=== PATIENT | female | born 1965 | race Caucasian/White ===

== ENCOUNTER 2016-07-24 09:47 | Day surgery (SDC) | payer OTHER ==
[~2016-07-24 09:47] MED LIST: CLON1 PO; LEVO112T2 PO; OMEP20TA39 PO
--- NOTE | 2016-07-24 13:46 | RADRPT ---
EXAM DATE/TIME: 07/24/2016 10:04 [facility] COMPARISON: US ABDOMEN - LOWER LIMITED, November 02, 2014, 13:33. [facility], PET/CT - TUMOR METABOLISM, May 07, 2016 INDICATIONS : Abdominal distention, ascites. MEDICAL HISTORY : Hypothyroidism. Gastroparesis. Acute gastritis. Ovarian cancer. Chemotherapy. SURGICAL HISTORY : Cholecystectomy. Hysterectomy. Tubal ligation. Endometrial ablation. ENCOUNTER: Subsequent ACUITY: 1 day PAIN SCORE: 0/10 LOCATION: Abdomen. AREA EVALUATED: Abdomen. FINDINGS: Imaging of the abdomen and pelvis was performed to evaluate for ascites for possible paracentesis. O nly a trace amount of fluid was present and paracentesis is not be performed. CONCLUSION: 1. Inadequate fluid for paracentesis. Bentley King MD on July 24, 2016 at 13:44 Board Certified Radiologist. This report was verified electronically.
== END 2016-07-24 10:20 | disposition home or self-care (01) ==
LOC: HRIP 09:47 → HRAD 09:47
PROVIDERS: ATTEND Obstetrics & Gynecology Gynecologic Oncology
DX: R14.0 Abdominal distension (gaseous) (principal); K31.84 Gastroparesis; E03.9 Hypothyroidism, unspecified; Z85.43 Personal history of malignant neoplasm of ovary; Z90.49 Acquired absence of other specified parts of digestive tract
CPT/HCPCS: 76705

== ENCOUNTER 2016-08-05 12:37 | Day surgery (SDC) | payer OTHER ==
[2016-08-05 14:05] VITALS: BP 118/81; PULSE 70; RESP 20; TEMP 98.3; O2SAT 100
--- NOTE | 2016-08-05 17:10 | RADRPT ---
EXAM DATE/TIME: 08/05/2016 12:59 [facility] COMPARISON: EXTERNAL COMPARISON: US GUIDED ABD PARACENTESIS, July 06, 2014, 9:26. [facility], PET/CT - TUMOR METABOLISM, Jul 29 2016. PET/CT - TUMOR METABOLISM May 07, 2016. PET/CT - TUMOR METABOLISM, 2015. PE T/CT - TUMOR METABOLISM, December 07, 2015. INDICATIONS : Ascites. MEDICAL HISTORY : Hypothyroidism. Metastatic ovarian cancer. SURGICAL HISTORY : Hysterectomy. Cholecystectomy. Tubal ligation. ENCOUNTER: Subsequent ACUITY: 2 weeks PAIN SCORE: 2/10 LOCATION: Right lower quadrant FLUID: Total volume of 2,600 cc of clear, yellow fluid was removed. Fluid was discarded. Paracentesis was therapeutic only. Post procedure scanning reveals no hematoma or other complication. TECHNIQUE: 1. Ultrasound guidance for abdominal paracentesis. 2. Paracentesis. The risks, benefits, and alternatives to ultrasound guided paracentesis were explained to the patient in detail including the risk of bleeding and infection. Written and verbal informed consent was obt ained. With the patient on the ultrasound table, ultrasound imaging was used to select the most appropriate approach for paracentesis. Overlying skin was prepped and draped in the usual sterile fashion and wi th a local anesthetic, a dermatotomy was made with an 11 blade scalpel. A 6 Spanish Nla-E-knhxsasj ca theter was introduced into the peritoneal cavity and fluid was collected. The patient tolerated the procedure well and left the ultrasound suite in stable condition. CONCLUSION: Uncomplicated ultrasound guided paracentesis. Andres Hoover MD on August 05, 2016 at 17:09 Board Certified Radiologist. This report was verified electronically.
== END 2016-08-05 14:10 | disposition home or self-care (01) ==
LOC: HROP 12:37 → HRIP 12:38 → HROP 14:10
PROVIDERS: ATTEND Obstetrics & Gynecology Gynecologic Oncology
DX: R18.8 Other ascites (principal); E03.9 Hypothyroidism, unspecified; C56.9 Malignant neoplasm of unspecified ovary
CPT/HCPCS: 49083; C1729

== ENCOUNTER 2016-08-20 12:29 | Day surgery (SDC) | payer OTHER ==
[2016-08-20 13:55] VITALS: BP 120/77; PULSE 85; RESP 16; TEMP 98.9; O2SAT 97
[2016-08-20 14:10] VITALS: BP 115/77; PULSE 86; RESP 18; O2SAT 98
--- NOTE | 2016-08-20 16:15 | RADRPT ---
EXAM DATE/TIME: 08/20/2016 12:53 [facility] COMPARISON: US GUIDED ABD PARACENTESIS, August 05, 2016, 12:59. INDICATIONS : Ascites. MEDICAL HISTORY : Hypothyroidism. Metastatic ovarian cancer. SURGICAL HISTORY : Hysterectomy. Cholecystectomy. Tubal ligation. ENCOUNTER: Subsequent ACUITY: 2 weeks PAIN SCORE: 1/10 LOCATION: Right lower quadrant FLUID: Total volume of 2,000 cc of cloudy, red fluid was removed. Fluid was discarded. Paracentesis was therapeutic only. Post procedure scanning reveals no hematoma or other complication. TECHNIQUE: 1. Ultrasound guidance for abdominal paracentesis. 2. Paracentesis. The risks, benefits, and alternatives to ultrasound guided paracentesis were explained to the patient in detail including the risk of bleeding and infection. Written and verbal informed consent was obt ained. With the patient on the ultrasound table, ultrasound imaging was used to select the most appropriate approach for paracentesis. Overlying skin was prepped and draped in the usual sterile fashion and wi th a local anesthetic, a dermatotomy was made with an 11 blade scalpel. A 6 Bengali Mks-O-vuffswvy ca theter was introduced into the peritoneal cavity and fluid was collected. The patient tolerated the procedure well and left the ultrasound suite in stable condition. CONCLUSION: Uncomplicated ultrasound guided paracentesis. Andres Hoover MD on August 20, 2016 at 16:13 Board Certified Radiologist. This report was verified electronically.
== END 2016-08-20 14:15 | disposition home or self-care (01) ==
LOC: HRAD 12:29 → HRIP 12:40 → HRAD 14:15
PROVIDERS: ATTEND Obstetrics & Gynecology Gynecologic Oncology
DX: R18.8 Other ascites (principal); E03.9 Hypothyroidism, unspecified
CPT/HCPCS: 49083; C1729

== ENCOUNTER 2016-09-05 09:48 | Day surgery (SDC) | payer OTHER ==
--- NOTE | 2016-09-05 13:07 | RADRPT ---
EXAM DATE/TIME: 09/05/2016 10:47 [facility] COMPARISON: No previous studies available for comparison. INDICATIONS : Abdominal discomfort. MEDICAL HISTORY : Ascites. Hypothyroidism. Metastatic ovarian cancer. SURGICAL HISTORY : Paracentesis.Hysterectomy. Cholecystectomy. Tubal ligation. ENCOUNTER: Subsequent ACUITY: 3 weeks PAIN SCORE: 0/10 LOCATION: Bilateral lower quadrant AREA EVALUATED: Abdomen. FINDINGS: Imaging of the abdomen and pelvis was performed to evaluate for ascites for possible paracentesis. No fluid in the 4 quadrants. CONCLUSION: No abdominal ascites. Mahamed Antunez MD on September 05, 2016 at 13:03 Board Certified Radiologist. This report was verified electronically.
== END 2016-09-05 11:00 | disposition home or self-care (01) ==
LOC: HRAD 09:48 → HRIP 09:49 → HRAD 11:00
PROVIDERS: ATTEND Obstetrics & Gynecology Gynecologic Oncology
DX: R18.8 Other ascites (principal); E03.9 Hypothyroidism, unspecified; Z85.43 Personal history of malignant neoplasm of ovary; Z90.49 Acquired absence of other specified parts of digestive tract
CPT/HCPCS: 76705

== ENCOUNTER 2017-02-06 07:55 | Day surgery (SDC) | payer OTHER ==
[~2017-02-06 07:55] MED LIST changes: +CITA10TA4 PO; +CLON1TAB PO; +DICY10CA12 PO; -LEVO112T2 PO; +LEVO75TA3 PO; +OMEP20TA PO; -OMEP20TA39 PO; +PANT40TA3 PO; +PERC5TAB12 PO
--- NOTE | 2017-02-06 09:35 | RADRPT ---
EXAM DATE/TIME: 02/06/2017 08:27 [facility] COMPARISON: US ABDOMEN - LOWER LIMITED, September 05, 2016, 10:47. INDICATIONS : Ascites. MEDICAL HISTORY : Hypothyroidism. Mentastic ovarian cancer. SURGICAL HISTORY : Hysterectomy. Cholecystectomy. Tubal ligation. ENCOUNTER: Subsequent ACUITY: 1 week PAIN SCORE: 3/10 LOCATION: Abdomen. AREA EVALUATED: Abdomen. FINDINGS: Imaging of the abdomen and pelvis was performed to evaluate for ascites for possible paracentesis. No ascites observed. Visceral evaluation of the abdomen was not performed at this time. CONCLUSION: No ascites observed. Austin Mcallister Jr., MD on February 06, 2017 at 9:33 Board Certified Radiologist. This report was verified electronically.
== END 2017-02-06 08:49 | disposition home or self-care (01) ==
LOC: HRIP 07:55 → HRAD 07:55
PROVIDERS: ATTEND Obstetrics & Gynecology Gynecologic Oncology
DX: R18.8 Other ascites (principal)
CPT/HCPCS: 76705

== ENCOUNTER 2017-02-14 12:41 | Day surgery (SDC) | payer OTHER ==
--- NOTE | 2017-02-14 13:31 | RADRPT ---
EXAM DATE/TIME: 02/14/2017 13:03 [facility] COMPARISON: US ABDOMEN - LOWER LIMITED, February 06, 2017, 8:27. INDICATIONS : Ascites. MEDICAL HISTORY : Hypothyroidism. Ovarian cancer with METS. SURGICAL HISTORY : Hysterectomy. Cholecystectomy. Tubal ligation. ENCOUNTER: Subsequent ACUITY: 4-6 months PAIN SCORE: 3/10 LOCATION: Abdomen. AREA EVALUATED: Quadrants. FINDINGS: Imaging of the abdomen and pelvis was performed to evaluate for ascites for possible paracentesis. T here is a minimal amount of fluid in all 4 quadrants. However, there is a large enough pocket for saf e therapeutic paracentesis. CONCLUSION: Very small volume of free fluid in the abdomen and pelvis. There is not enough fluid for safe therape utic paracentesis. Findings were discussed with the patient. Andres Hoover MD on February 14, 2017 at 13:29 Board Certified Radiologist. This report was verified electronically.
== END 2017-02-14 16:21 | disposition home or self-care (01) ==
LOC: HRIP 12:41 → HRAD 12:41
PROVIDERS: ATTEND Obstetrics & Gynecology Gynecologic Oncology
DX: R18.8 Other ascites (principal)
CPT/HCPCS: 76705

== ENCOUNTER 2017-02-20 12:48 | Day surgery (SDC) | payer OTHER ==
[2017-02-20 13:29] VITALS: BP 141/89; PULSE 109; RESP 16; TEMP 97.3; O2SAT 100
[2017-02-20 14:20] VITALS: BP 134/87; PULSE 90; RESP 18; TEMP 99.2; O2SAT 99
[2017-02-20] MEDS ORDERED: LIDOCAINE HCL 1% 20 ML VIAL ONE (14:21)
[2017-02-20 14:35] VITALS: BP 139/95; PULSE 91; RESP 16; O2SAT 98
--- NOTE | 2017-02-20 15:13 | RADRPT ---
EXAM DATE/TIME: 02/20/2017 13:09 [facility] COMPARISON: US GUIDED ABD PARACENTESIS, August 20, 2016, 12:53. INDICATIONS : Ascites. MEDICAL HISTORY : Hypothyroidism. Irritable bowel syndrome. Gastroparesis. Ovarian cancer. SURGICAL HISTORY : Cholecystectomy Tubal ligation. Hysterectomy. Chemotherapy. ENCOUNTER: Subsequent ACUITY: 1 week PAIN SCORE: 0/10 LOCATION: Right lower quadrant FLUID: Total volume of 2700 cc of fluid was removed. Fluid was discarded. Paracentesis was therapeutic only. Post procedure scanning reveals no hematoma or other complication. TECHNIQUE: 1. Ultrasound guidance for abdominal paracentesis. 2. Paracentesis. The risks, benefits, and alternatives to ultrasound guided paracentesis were explained to the patient in detail including the risk of bleeding and infection. Written and verbal informed consent was obt ained. With the patient on the ultrasound table, ultrasound imaging was used to select the most appropriate approach for paracentesis. Overlying skin was prepped and draped in the usual sterile fashion and wi th a local anesthetic, a dermatotomy was made with an 11 blade scalpel. A 6 Luxembourgish Qan-I-hhkwwprt ca theter was introduced into the peritoneal cavity and fluid was collected. The patient tolerated the procedure well and left the ultrasound suite in stable condition. CONCLUSION: Uncomplicated ultrasound guided paracentesis. Austin Mcallister Jr., MD on February 20, 2017 at 15:11 Board Certified Radiologist. This report was verified electronically.
== END 2017-02-20 14:48 | disposition home or self-care (01) ==
LOC: HRAD 12:48 → HRIP 12:51 → HRAD 14:48
PROVIDERS: ATTEND Obstetrics & Gynecology Gynecologic Oncology
DX: R18.8 Other ascites (principal); E03.9 Hypothyroidism, unspecified; K58.9 Irritable bowel syndrome, unspecified; Z85.43 Personal history of malignant neoplasm of ovary
CPT/HCPCS: 49083; C1729

== ENCOUNTER 2017-03-06 09:57 | Day surgery (SDC) | payer OTHER ==
[~2017-03-06 09:57] MED LIST changes: -OMEP20TA PO; +OMEP20TA93 PO
[2017-03-06 11:45] VITALS: BP 117/75; PULSE 90; RESP 17; TEMP 98.1; O2SAT 99
[2017-03-06 12:00] VITALS: BP 122/67; PULSE 92; RESP 18; O2SAT 96
--- NOTE | 2017-03-06 12:00 | PD.RAD ---
Post US Procedure Prog Note Pre Procedure Diagnosis: (1) Ascites Post Procedure Diagnosis: (1) Ascites Procedure Date: Mar 06, 2017 Supervising Radiologist: Andres Hoover Estimated blood loss: none Anesthesia: Local Plan of Activity Patient to Unit: ROPU Patient Condition: Good See PACS Report for procedural detail/treatment Drainage Procedure Procedure 1 Imaging Guidance: Ultrasound Side: Right Procedure Type: Paracentesis Drainage: Suction Fluid Removal (CCs): 13295 Fluid Description: Clear, Red Plan to ROPU then discharge. Andres Hoover MD Mar 06, 2017 12:00
--- NOTE | 2017-03-06 12:01 | RADRPT ---
EXAM DATE/TIME: 03/06/2017 10:25 [facility] COMPARISON: US GUIDED ABD PARACENTESIS, February 20, 2017, 13:09. INDICATIONS : Ascites. MEDICAL HISTORY : Hypothyroidism. Inflammatory bowel disease. Gastroparesis. Ovarian cancer. SURGICAL HISTORY : Cholecystectomy Tubal ligation. Hysterectomy. Chemotherapy. ENCOUNTER: Subsequent ACUITY: 3 days PAIN SCORE: 3/10 LOCATION: Right lower quadrant FLUID: Total volume of 2900 cc of clear, red fluid was removed. Fluid was discarded. Paracentesis was therapeutic only. Post procedure scanning reveals no hematoma or other complication. TECHNIQUE: 1. Ultrasound guidance for abdominal paracentesis. 2. Paracentesis. The risks, benefits, and alternatives to ultrasound guided paracentesis were explained to the patient in detail including the risk of bleeding and infection. Written and verbal informed consent was obt ained. With the patient on the ultrasound table, ultrasound imaging was used to select the most appropriate approach for paracentesis. Overlying skin was prepped and draped in the usual sterile fashion and wi th a local anesthetic, a dermatotomy was made with an 11 blade scalpel. A 6 Italian Ome-N-oxjbmnql ca theter was introduced into the peritoneal cavity and fluid was collected. The patient tolerated the procedure well and left the ultrasound suite in stable condition. CONCLUSION: Uncomplicated ultrasound guided paracentesis. Andres Hoover MD on March 06, 2017 at 11:58 Board Certified Radiologist. This report was verified electronically.
== END 2017-03-06 12:28 | disposition home or self-care (01) ==
LOC: HRAD 09:57 → HRIP 09:59 → HRAD 12:28
PROVIDERS: ATTEND Obstetrics & Gynecology Gynecologic Oncology
DX: R18.8 Other ascites (principal); K31.84 Gastroparesis; Z85.43 Personal history of malignant neoplasm of ovary
CPT/HCPCS: 49083; C1729

== ENCOUNTER 2017-03-12 08:07 | Emergency (ER) | payer OTHER ==
[~2017-03-12] VITALS: Ht 167.6 cm; Wt 78.0 kg
[2017-03-12 08:20] VITALS: BP 127/81; PULSE 125; RESP 15; O2SAT 99
[2017-03-12] MEDS ORDERED: AMLO5TAB2 PO (08:32)
[2017-03-12 08:33] VITALS: BP 142/96; PULSE 117; RESP 18; O2SAT 98
[2017-03-12] MEDS ORDERED: SODIUM CHLORIDE 0.9% FLUSH 10 ML FLUSH IV FLUSH PRN (09:30)
[2017-03-12] MEDS ORDERED: ONDANSETRON HCL 4 MG/2 ML VIAL IVP ONE (09:30)
[2017-03-12] MEDS ORDERED: MORPHINE SULFATE 4 MG/ML INJ IV PUSH ONE (09:30)
[2017-03-12] MEDS ORDERED: SODIUM CHLORID 0.9% 500 ML INJ 500 ML IV ONE (09:30)
[2017-03-12 10:06] LABS: AUTOMATED NEUTROPHIL # 8.8 TH/MM3 (1.8-7.7); BASOPHIL # 0.1 TH/MM3 (0-0.2); BASOPHIL % 0.5 % (0.0-2.0); EOSINOPHIL % 0.3 % (0.0-4.0); HEMO FLAGS DIFF FINAL; LYMPH % 7.1 % (9.0-44.0); LYMPHOCYTE # 0.7 TH/MM3 (1.0-4.8); MEAN CELL VOLUME 92.7 FL (80.0-100.0); MEAN CORPUSCULAR HEMOGLOBIN 30.3 PG (27.0-34.0); MEAN CORPUSCULAR HGB CONC 32.7 % (32.0-36.0); MONO % 7.4 % (0.0-8.0); NEUT % 84.7 % (16.0-70.0); PLATELET COUNT 246 TH/MM3 (150-450); RED BLOOD COUNT 4.21 MIL/MM3 (4.00-5.30); RED CELL DISTRIBUTION WIDTH 18.7 % (11.6-17.2); WHITE BLOOD COUNT 10.4 TH/MM3 (4.0-11.0)
[2017-03-12 10:14] LABS: APTT (PATIENT) 24.6 SEC (24.3-30.1); PROTHROMBIN TIME - PATIENT 11.4 SEC (9.8-11.6)
[2017-03-12 10:15] VITALS: RESP 18; O2SAT 98
[2017-03-12 10:28] LABS: ANION GAP 14 MEQ/L (5-15); AST (GOT) 44 U/L (15-37); BICARBONATE 20.7 MEQ/L (21.0-32.0); BLOOD UREA NITROGEN 10 MG/DL (7-18); CHLORIDE 101 MEQ/L (98-107); GLOMERULAR FILTRATION RATE 44 ML/MIN (>89); POTASSIUM 3.4 MEQ/L (3.5-5.1); SODIUM (NA) 136 MEQ/L (136-145)
[2017-03-12 10:34] LABS: ALKALINE PHOSPHATASE 184 U/L (45-117); ALT (GPT) 32 U/L (10-53); TOTAL BILIRUBIN ADULT 0.7 MG/DL (0.2-1.0)
[2017-03-12] MEDS ORDERED: IOHEXOL 350 MG/ML 10 ML VIAL (for RAD DIAG) IVCONTRAST ONE (11:00)
--- NOTE | 2017-03-12 11:48 | RADRPT ---
EXAM DATE/TIME: 03/12/2017 10:56 [facility] COMPARISON: CT ABDOMEN & PELVIS W CONTRAST, June 04, 2014, 16:03. INDICATIONS : Lower abdominal pain. Nausea and vomiting for one day. IV CONTRAST: 98 cc Omnipaque 350 (iohexol) IV ORAL CONTRAST: No oral contrast ingested. RADIATION DOSE: 9.25 CTDIvol (mGy) MEDICAL HISTORY : Hypertension. Ovarian cancer. SURGICAL HISTORY : Cholecystectomy. Hysterectomy. ENCOUNTER: Initial ACUITY: 1 day PAIN SCALE: 5/10 LOCATION: lower quadrant TECHNIQUE: Volumetric scanning of the abdomen and pelvis was performed. Using automated exposure control and ad justment of the mA and/or kV according to patient size, radiation dose was kept as low as reasonably achievable to obtain optimal diagnostic quality images. DICOM format image data is available electro nically for review and comparison. FINDINGS: LOWER LUNGS: Minimal linear opacity left lung nonspecific. Right lung is clear. LIVER: Liver is small moderate ascites throughout the abdomen. Stable appearing hemangioma right lower lobe . SPLEEN: There is now 84.3 cm cystic mass in the hilum of the spleen. The loculated fluid collection that is sitting just above the spleen as well. The large 8 cm likely fluid collection is seen adjacent to th e spleen. PANCREAS: Within normal limits. KIDNEYS: Normal in size and shape. There is no mass, stone or hydronephrosis. ADRENAL GLANDS: Within normal limits. VASCULAR: There is no aortic aneurysm. BOWEL/MESENTERY: Loculated mesenteric fluid collections are present scattered in the abdomen. This suggests either co mplex or malignant ascites. ABDOMINAL WALL: Intact. There are no peritoneal implants. RETROPERITONEUM: There is no lymphadenopathy. BLADDER: No wall thickening or mass. REPRODUCTIVE: Within normal limits. Fluid is seen in the pelvis. INGUINAL: There is no lymphadenopathy or hernia. MUSCULOSKELETAL: Within normal limits for patient age. CONCLUSION: Complex loculated ascites but would be consistent with malignant ascites The large loculated fluid collection in the left upper quadrant may well be causing the nausea. Ethan Dubose MD FACR on March 12, 2017 at 11:05 Board Certified Radiologist. This report was verified electronically.
--- NOTE | 2017-03-12 12:48 | PD ---
HPI Chief Complaint: Abdominal Pain Time Seen by Provider: 09:04 Travel History International Travel<30 days: No Contact w/Intl Traveler<30days: No Traveled to known affect area: No History of Present Illness HPI Patient is a 51-year-old female with history of ovarian cancer spread to the mesentery, who comes in complaining of nausea and vomiting. She says she takes an oral chemotherapy medication every night, but since last night she has had nausea and vomiting. She says she is concerned that she is dehydrated. She said she had a paracentesis done last week, and feels like the fluid is building up again. She has some pain to the top of her abdomen, which she feels is from the fluid buildup. She did take some Zofran just prior to coming in and says that is helped a little bit. She takes Percocet at home for pain. She says she has paracentesis scheduled for tomorrow. PFSH Past Medical History Asthma: No Blood Disorders: No Anxiety: Yes Depression: No Heart Rhythm Problems: No Cancer: Yes (ovarian) Cardiovascular Problems: No High Cholesterol: No Chemotherapy: Yes (daily pill) Chest Pain: No Congestive Heart Failure: No COPD: No Diabetes: No Diminished Hearing: No Endocrine: Yes Gastrointestinal Disorders: Yes (gastroparesis, ACUTE GASTRITIS) Genitourinary: No Hepatitis: No Hiatal Hernia: No Hypertension: Yes Immune Disorder: No Implanted Vascular Access Dvce: Yes Musculoskeletal: No Neurologic: No Psychiatric: Yes (ANXIETY) Reproductive: Yes (tumors on both ovaries) Respiratory: No Radiation Therapy: No Sleep Apnea: No Thyroid Disease: Yes (HYPOTHYROID) ?: Not Tubal Ligation: Yes Past Surgical History Abdominal Surgery: Yes (hemorroid banding ) AICD: No Body Medical Devices: INFUSAPORT LEFT CHEST Cardiac Surgery: No Cholecystectomy: Yes Ear Surgery: No Endocrine Surgery: No Eye Surgery: No Genitourinary Surgery: No Gynecologic Surgery: Yes (tubaligation endometrial ablation) Hysterectomy: Yes Joint Replacement: No Oral Surgery: No Pacemaker: No Thoracic Surgery: No Other Surgery: Yes (hernia) Social History Alcohol Use: No Tobacco Use: No Substance Use: No Allergies-Medications (Allergen,Severity, Reaction): Coded Allergies: carboplatin (Verified Allergy, Severe, Throat swelling , 03/12/17) sulfamethoxazole (Verified Allergy, Intermediate, SWELLING, 03/12/17) trimethoprim (Verified Allergy, Intermediate, SWELLING, 03/12/17) Reported Meds & Prescriptions Reported Meds & Active Scripts Active Reported Amlodipine (Amlodipine Besylate) 5 Mg Tab 5 Mg PO BID Pantoprazole (Pantoprazole Sodium) 40 Mg Tab 40 Mg PO DAILY Percocet (Oxycodone-Acetaminophen) 5-325 mg Tab 1 Tab PO DIRECTED PRN Clonazepam 1 Mg Tab 1 Mg PO HS Citalopram (Citalopram Hydrobromide) 10 Mg Tab 5 Mg PO DAILY Dicyclomine (Dicyclomine HCl) 10 Mg Cap 10 Mg PO DAILY Omeprazole 20 Mg Tab 20 Mg PO DAILY Levothyroxine (Levothyroxine Sodium) 75 Mcg Tab 75 Mcg PO DAILY Klonopin (Clonazepam) 1 Mg Tab 1 Mg PO DAILY Review of Systems Except as stated in HPI: all other systems reviewed are Neg General / Constitutional: No: Fever, Chills HENT: No: Headaches, Lightheadedness Cardiovascular: No: Chest Pain or Discomfort Respiratory: No: Shortness of Breath Gastrointestinal: Positive: Nausea, Vomiting, Abdominal Pain Genitourinary: No: Dysuria Musculoskeletal: No: Myalgias Skin: No Rash, No Change in Pigmentation Neurologic: No: Weakness, Dizziness Physical Exam Narrative GENERAL: Awake and alert, in no acute distress. SKIN: Focused skin assessment warm/dry. HEAD: Atraumatic. Normocephalic. EYES: Pupils equal and round. No scleral icterus. ENT: Mucous membranes pink and moist. NECK: Trachea midline. No JVD. CARDIOVASCULAR: Regular rate and rhythm. No murmur appreciated. RESPIRATORY: No accessory muscle use. Clear to auscultation. Breath sounds equal bilaterally. GASTROINTESTINAL: Tenderness to palpation across the top of the abdomen. Mildly distended. No rebound or guarding. MUSCULOSKELETAL: No obvious deformities. No clubbing. No cyanosis. No edema. NEUROLOGICAL: Awake and alert. No obvious cranial nerve deficits. Motor grossly within normal limits. Normal speech. PSYCHIATRIC: Appropriate mood and affect; insight and judgment normal. Data Data Last Documented VS Vital Signs Date Time Temp Pulse Resp B/P (MAP) Pulse Ox O2 Delivery O2 Flow Rate FiO2 03/12/17 10:15 18 98 Room Air 03/12/17 08:33 117 Orders Orders Complete Blood Count With Diff (03/12/17 09:19) Comprehensive Metabolic Panel (03/12/17 09:19) Lipase (03/12/17:) Lactic Acid (03/12/17:) Prothrombin Time / Inr (Pt) (03/12/17:) Act Partial Throm Time (Ptt) (03/12/17:) Urinalysis - C+S If Indicated (03/12/17:) Ct Abd/Pel W Iv Contrast(Rout) (03/12/17:) Iv Access Insert/Monitor (03/12/17:) Ecg Monitoring (03/12/17:) Oximetry (03/12/17:) Morphine Inj (Morphine Inj) (03/12/17 09:30) Ondansetron Inj (Zofran Inj) (03/12/17 09:30) Sodium Chloride 0.9% Flush (Ns Flush) (03/12/17:30) Sodium Chlorid 0.9% 500 Ml Inj (Ns 500 M (03/12/17 09:30) Iohexol 350 Inj (Omnipaque 350 Inj) (03/12/17 11:00) Labs Laboratory Tests Test 03/12/17 09:25 White Blood Count 10.4 TH/MM3 Red Blood Count 4.21 MIL/MM3 Hemoglobin 12.8 GM/DL Hematocrit 39.0 % Mean Corpuscular Volume 92.7 FL Mean Corpuscular Hemoglobin 30.3 PG Mean Corpuscular Hemoglobin Concent 32.7 % Red Cell Distribution Width 18.7 % Platelet Count 246 TH/MM3 Mean Platelet Volume 7.9 FL Neutrophils (%) (Auto) 84.7 % Lymphocytes (%) (Auto) 7.1 % Monocytes (%) (Auto) 7.4 % Eosinophils (%) (Auto) 0.3 % Basophils (%) (Auto) 0.5 % Neutrophils # (Auto) 8.8 TH/MM3 Lymphocytes # (Auto) 0.7 TH/MM3 Monocytes # (Auto) 0.8 TH/MM3 Eosinophils # (Auto) 0.0 TH/MM3 Basophils # (Auto) 0.1 TH/MM3 CBC Comment DIFF FINAL Differential Comment Prothrombin Time 11.4 SEC Prothromb Time International Ratio 1.0 RATIO Activated Partial Thromboplast Time 24.6 SEC Blood Urea Nitrogen 10 MG/DL Creatinine 1.26 MG/DL Random Glucose 121 MG/DL Total Protein 7.8 GM/DL Albumin 3.7 GM/DL Calcium Level 9.8 MG/DL Alkaline Phosphatase 184 U/L Aspartate Amino Transf (AST/SGOT) 44 U/L Alanine Aminotransferase (ALT/SGPT) 32 U/L Total Bilirubin 0.7 MG/DL Sodium Level 136 MEQ/L Potassium Level 3.4 MEQ/L Chloride Level 101 MEQ/L Carbon Dioxide Level 20.7 MEQ/L Anion Gap 14 MEQ/L Estimat Glomerular Filtration Rate 44 ML/MIN Lactic Acid Level 1.2 mmol/L Lipase 142 U/L MDM Medical Decision Making Medical Screen Exam Complete: Yes Emergency Medical Condition: Yes Medical Record Reviewed: Yes Differential Diagnosis Dehydration versus bowel obstruction versus gastroenteritis versus electrolyte abnormalities Narrative Course Patient is a 51-year-old female comes in complaining of abdominal pain with nausea and vomiting. Exam shows tenderness across the abdomen. IV established , labs sent. Patient given IV fluids, Zofran, morphine. She does report feeling better. ET abdomen and pelvis shows a loculated ascites, likely causing her nausea and vomiting there is no evidence of bowel obstruction. Last 24 hours Impressions Abdomen/Pelvis CT 03/12/17 0919 Signed Impressions: Service Date/Time: Sunday, March 12, 2017 10:56 - CONCLUSION: Complex loculated ascites but would be consistent with malignant ascites The large loculated fluid collection in the left upper quadrant may well be causing the nausea. Ethan Dubose MD FACR Patient is drinking Gatorade without any issue. She says she spoke with the radiology department, and the consideration for paracentesis today. She is comfortable going home and following up for paracentesis and with her doctors. She is advised to return any time for any worsening symptoms. Diagnosis Primary Impression: Nausea & vomiting Qualified Codes: R11.2 - Nausea with vomiting, unspecified Additional Impression: Ascites Qualified Codes: R18.0 - Malignant ascites Patient Instructions: Acute Nausea and Vomiting (ED), General Instructions Additional Instructions: Follow-up with your doctors. Drink plenty of fluids. Return any time for any worsening symptoms. Disposition: 01 DISCHARGE HOME Condition: Stable Jenny Shell MD Mar 12, 2017 12:48
== END 2017-03-12 13:06 | disposition home or self-care (01) ==
LOC: NEPC 08:07
DX: R11.2 Nausea with vomiting, unspecified (principal); R18.0 Malignant ascites; C56.9 Malignant neoplasm of unspecified ovary; C78.6 Secondary malignant neoplasm of retroperitoneum and peritoneum; I10 Essential (primary) hypertension; E03.9 Hypothyroidism, unspecified; F41.9 Anxiety disorder, unspecified; Z92.21 Personal history of antineoplastic chemotherapy
CPT/HCPCS: 74177; 80053; 83605; 83690; 85025; 85610; 85730; 96361; 96374; 96375; 99285; J2270; J2405; J7040; Q9967

== ENCOUNTER 2017-03-12 13:04 | Day surgery (SDC) | payer OTHER ==
[~2017-03-12 13:04] MED LIST changes: +AMLO5TAB2 PO
[2017-03-12 13:58] VITALS: BP 127/90; PULSE 110; RESP 14; TEMP 98.8; O2SAT 92
[2017-03-12] MEDS ORDERED: LIDOCAINE HCL 1% 20 ML VIAL ONE (14:37)
[2017-03-12 14:40] VITALS: BP 120/79; PULSE 98; RESP 18; O2SAT 98
[2017-03-12 14:55] VITALS: BP 129/88; PULSE 97; RESP 18; O2SAT 98
--- NOTE | 2017-03-12 15:20 | RADRPT ---
EXAM DATE/TIME: 03/12/2017 13:33 [facility] COMPARISON: US GUIDED ABD PARACENTESIS, March 06, 2017, 10:25. INDICATIONS : Ascites. MEDICAL HISTORY : Hypothyroidism. Inflammatory bowel disease. Gastroparesis. Ovarian cancer. Ascites. SURGICAL HISTORY : Cholecystectomy Tubal ligation. Hysterectomy. Chemotherapy. Paracentesis. ENCOUNTER: Subsequent ACUITY: 1 week PAIN SCORE: 3/10 LOCATION: Left lower quadrant FLUID: Total volume of 1600 cc of clear, red fluid was removed. Fluid was discarded. Paracentesis was therapeutic only. Post procedure scanning reveals no hematoma or other complication. TECHNIQUE: 1. Ultrasound guidance for abdominal paracentesis. 2. Paracentesis. The risks, benefits, and alternatives to ultrasound guided paracentesis were explained to the patient in detail including the risk of bleeding and infection. Written and verbal informed consent was obt ained. With the patient on the ultrasound table, ultrasound imaging was used to select the most appropriate approach for paracentesis. Overlying skin was prepped and draped in the usual sterile fashion and wi th a local anesthetic, a dermatotomy was made with an 11 blade scalpel. A 6 Cypriot Dlp-O-dqjjqivn ca theter was introduced into the peritoneal cavity and fluid was collected. The patient tolerated the procedure well and left the ultrasound suite in stable condition. CONCLUSION: Uncomplicated ultrasound guided paracentesis. Austin Mcallister Jr., MD on March 12, 2017 at 15:18 Board Certified Radiologist. This report was verified electronically.
== END 2017-03-12 14:10 | disposition home or self-care (01) ==
LOC: HRAD 13:04 → HRIP 13:11 → HRAD 14:10
PROVIDERS: ATTEND Obstetrics & Gynecology Gynecologic Oncology
DX: R18.8 Other ascites (principal); E03.9 Hypothyroidism, unspecified; K31.84 Gastroparesis; Z85.43 Personal history of malignant neoplasm of ovary
CPT/HCPCS: 49083; C1729

== ENCOUNTER 2017-03-19 09:56 | Day surgery (SDC) | payer OTHER ==
[2017-03-19 10:23] VITALS: BP 128/81; PULSE 99; RESP 14; TEMP 98; O2SAT 100
[2017-03-19] MEDS ORDERED: LIDOCAINE HCL 1% 20 ML VIAL ONE (11:18)
[2017-03-19 11:23] VITALS: BP 122/81; PULSE 95; RESP 16; O2SAT 98
[2017-03-19 11:37] VITALS: BP_SYST 120; BP_SYST 122; BP_DIAS 81; PULSE 90; RESP 20; O2SAT 97
--- NOTE | 2017-03-19 11:44 | RADRPT ---
EXAM DATE/TIME: 03/19/2017 10:22 [facility] COMPARISON: US GUIDED ABD PARACENTESIS, March 12, 2017, 13:33. INDICATIONS : Ascites. MEDICAL HISTORY : Hypothyroidism. Inflammatory bowel disease. Gastroparesis. Ovarian cancer. Ascites. SURGICAL HISTORY : Cholecystectomy Tubal ligation. Hysterectomy. Chemotherapy. Paracentesis. ENCOUNTER: [facility] ACUITY: 1 week PAIN SCORE: 6/10 LOCATION: Right lower quadrant FLUID: Total volume of 1,470 cc of clear, red fluid was removed. Fluid was discarded. Paracentesis was therapeutic only. Post procedure scanning reveals no hematoma or other complication. TECHNIQUE: 1. Ultrasound guidance for abdominal paracentesis. 2. Paracentesis. The risks, benefits, and alternatives to ultrasound guided paracentesis were explained to the patient in detail including the risk of bleeding and infection. Written and verbal informed consent was obt ained. With the patient on the ultrasound table, ultrasound imaging was used to select the most appropriate approach for paracentesis. Overlying skin was prepped and draped in the usual sterile fashion and wi th a local anesthetic, a dermatotomy was made with an 11 blade scalpel. A 6 Solomon Islander Kra-W-okqhumwy ca theter was introduced into the peritoneal cavity and fluid was collected. The patient tolerated the procedure well and left the ultrasound suite in stable condition. CONCLUSION: Uncomplicated ultrasound guided paracentesis. Duc Guerrero MD on March 19, 2017 at 11:42 Board Certified Radiologist. This report was verified electronically.
[2017-03-19 11:45] VITALS: BP 130/91; PULSE 92; RESP 20; O2SAT 97
== END 2017-03-19 11:51 | disposition home or self-care (01) ==
LOC: HRAD 09:56 → HRIP 09:57 → HRAD 11:51
PROVIDERS: ATTEND Obstetrics & Gynecology Gynecologic Oncology
DX: R18.8 Other ascites (principal); E03.9 Hypothyroidism, unspecified; K31.84 Gastroparesis; K52.3 Indeterminate colitis; Z85.43 Personal history of malignant neoplasm of ovary
CPT/HCPCS: 49083; C1729

== ENCOUNTER 2017-03-26 07:28 | Day surgery (SDC) | payer OTHER ==
[~2017-03-26] VITALS: Ht 157.5 cm; Wt 64.5 kg
[2017-03-26 07:52] VITALS: BP 146/102; PULSE 113; RESP 20; TEMP 97.9; O2SAT 100
[2017-03-26] MEDS: SODIUM CHLORIDE 0.9% 1000 ML IV SCH ×2 (08:00→15:00)
[2017-03-26] MEDS ORDERED: LIDOCAINE 1%/EPINEPHrine 1:100,000 SOLN 20 ML VIAL ONE (08:02)
[2017-03-26] MEDS ORDERED: MIDAZOLAM HCL 2 MG/2 ML VIAL ONE (08:40)
[2017-03-26] MEDS ORDERED: HYDROmorphone HCL PF 2 MG/ML VIAL ONE (08:40)
[2017-03-26] MEDS ORDERED: diphenhydrAMINE HCL 50 MG/ML VIAL ONE (09:17)
--- NOTE | 2017-03-26 09:37 | PD.RAD ---
Post CT Procedure Prog Note Pre Procedure Diagnosis: (1) Ascites, malignant (2) Ovarian cancer Post Procedure Diagnosis: (1) Ascites, malignant (2) Ovarian cancer Procedure Date: Mar 26, 2017 Supervising Radiologist: Austin Mcallister JR Anesthesia: Conscious Sedation Plan of Activity Patient to Unit: ROPU Patient Condition: Good Additional Comments: Original plan was to drain a loculated collection posterior to stomach. CT shows this to have decreased in size and no longer has a window for access. Patient has modest ascites. This was drained. Pt has dilated small bowel in visualized part of abdomen. This is new. See PACS Report for procedural detail/treatment Jr. Esvin,Austin Graff MD Mar 26, 2017 09:37
[2017-03-26 09:45] VITALS: BP 143/76; PULSE 105; RESP 18; TEMP 98.3; O2SAT 98
[2017-03-26 10:00] VITALS: BP 140/84; PULSE 103; RESP 18; O2SAT 97
[2017-03-26 10:15] VITALS: BP 140/80; PULSE 99; RESP 18; O2SAT 94
[2017-03-26] MEDS ORDERED: DIATRIZOATE MEGLUM/DIATRIZOATE SOD 9 ML CUP PO ONE (10:30)
[2017-03-26 10:45] VITALS: BP 140/89; PULSE 104; RESP 18; O2SAT 96
--- NOTE | 2017-03-26 13:33 | RADRPT ---
EXAM DATE/TIME: 03/26/2017 08:57 [facility] COMPARISON: CT ABDOMEN & PELVIS W CONTRAST, March 12, 2017, 10:56. CT GUIDED ABD PARACENTESIS, June 06, 015, 13:31. INDICATIONS : Ascites. SEDATION TIME: 30 MEDICATION(S): 1.) 4 mg midazolam (Versed) IV 2.) 2 mg hydromorphone (Dilaudid) IV 3.) 25 mg IV Benadryl DEVICE(S): 1.) Skater 7fr FLUID: Total volume of 1000 cc of clear, red fluid was removed. Fluid was discarded. MEDICAL HISTORY : Hypertension. Carcinoma, ovarian. SURGICAL HISTORY : Hysterectomy. Cholecystectomy. ENCOUNTER: Initial ACUITY: 1 day PAIN SCORE: 0/10 LOCATION: anterior PROCEDURE: 1.) Conscious sedation with continuous EKG and oximetry monitoring. PROCEDURE : 1. CT-guidance for abdominal paracentesis. 2. Paracentesis. The original plan was to percutaneously drain the loculated fluid component posterior to the stomach as well as a general paracentesis. Upon initial imaging of the procedure the loculated component post erior to the stomach is considerably smaller now measuring 3.6 x 4.8 cm where previously measured 8.6 x 6.2 cm. No window was present for safe percutaneous access into this collection. Access into the a scites itself was present and therefore a CT paracentesis planned. The risks, benefits and alternativ es to CT-guided paracentesis were explained to the patient in detail, lay terms including the risk of bleeding and infection. Oral and written informed consent was obtained. Using automated exposure co ntrol and adjustment of the mA and/or kV according to patient size, radiation dose was kept as low as reasonably achievable to obtain optimal diagnostic quality images. DICOM format image data is avail able electronically for review and comparison. The patient was scanned to select approach for paracentesis. The skin was prepped in sterile fashion . The skin and subcutaneous tissues were infiltrated with Lidocaine solution. A 6 Macedonian catheter w as introduced to the peritoneal cavity and ascites was collected. Post procedure scanning reveals no evidence of hematoma or other complication. The patient tolerated the procedure well and left the CT suite in good condition. CONCLUSION: Uncomplicated CT Guided paracentesis. The loculated posterior gastric fluid collection is considerabl y smaller and there is no clear window for access into this fluid. Note is made of dilated loops of s mall bowel which is a new finding. I spoke with Dr. Garcia. Austin Mcallister Jr., MD on March 26, 2017 at 13:27 Board Certified Radiologist. This report was verified electronically.
[2017-03-26] MEDS ORDERED: IOHEXOL 350 MG/ML 10 ML VIAL (for RAD DIAG) IVCONTRAST ONE (13:52)
--- NOTE | 2017-03-26 14:43 | RADRPT ---
EXAM DATE/TIME: 03/26/2017 13:41 [facility] COMPARISON: CT ABDOMEN & PELVIS W CONTRAST, March 12, 2017, 10:56. INDICATIONS : Evaluate for small bowel obstruction. History of ovarian cancer, abdominal pain. IV CONTRAST: 70 cc Omnipaque 350 (iohexol) IV ORAL CONTRAST: Prescribed oral contrast ingested. RADIATION DOSE: 14.62 CTDIvol (mGy) MEDICAL HISTORY : Hypertension. Carcinoma, ovarian. SURGICAL HISTORY : Cholecystectomy. Hysterectomy. ENCOUNTER: Initial ACUITY: 1 day PAIN SCALE: 6/10 LOCATION: anterior TECHNIQUE: Volumetric scanning of the abdomen and pelvis was performed. Using automated exposure control and ad justment of the mA and/or kV according to patient size, radiation dose was kept as low as reasonably achievable to obtain optimal diagnostic quality images. DICOM format image data is available electro nically for review and comparison. FINDINGS: Since the previous examination there has been development of dilatation of the majority of the small bowel. There is a transition point located within the right lower quadrant. I'm not able to appreciat e a mass or obstructing lesion. The small bowel reaches a diameter of 4 cm the colon is decompressed as is the most distal small bowel. Loculated ascites is again seen throughout the abdomen. This is de creased relative to the prior study. The loculated component posterior to the stomach has decreased e barbara further from the post drainage CT images. A cystic lesion is again noted involving the spleen. A low density lesion is seen posteriorly within the right lobe of the liver. These are stable. CONCLUSION: Distal small bowel obstruction with transition point in the right lower quadrant. Loculated ascites. I spoke with Dr. Garcia. Austin Mcallister Jr., MD on March 26, 2017 at 13:58 Board Certified Radiologist. This report was verified electronically.
[2017-03-26] MEDS ORDERED: ONDANSETRON HCL 4 MG/2 ML VIAL ONE (14:59)
[2017-03-26] MEDS ORDERED: ONDANSETRON HCL 4 MG/2 ML VIAL IV PUSH ONE (15:30)
[2017-03-26] MEDS ORDERED: [UNRECOGNIZED DRUG - REMARK] PO (17:01)
== END 2017-03-26 15:15 | disposition home or self-care (01) ==
LOC: HRAD 07:28 → HRIP 07:39 → HRAD 15:15
PROVIDERS: ATTEND Obstetrics & Gynecology Gynecologic Oncology
DX: R18.0 Malignant ascites (principal); C56.9 Malignant neoplasm of unspecified ovary; I10 Essential (primary) hypertension
CPT/HCPCS: 49083; 74177; C1729; C1769; J1170; J1200; J2250; J2405; J7030; Q9963; Q9967

== ENCOUNTER 2017-03-26 15:29 | Inpatient (IN) | payer OTHER ==
[~2017-03-26] VITALS: Ht 154.9 cm; Wt 65.8 kg
[2017-03-26] MEDS ORDERED: ONDANSETRON HCL 4 MG/2 ML VIAL IVP ONE (16:15)
[2017-03-26] MEDS ORDERED: MORPHINE SULFATE 4 MG/ML INJ IV PUSH ONE (16:15)
[2017-03-26] MEDS ORDERED: SODIUM CHLORIDE 0.9% FLUSH 10 ML FLUSH IV FLUSH PRN (16:15)
--- NOTE | 2017-03-26 16:42 | PD ---
HPI Chief Complaint: GI Complaint Time Seen by Provider: 16:04 Travel History International Travel<30 days: No Contact w/Intl Traveler<30days: No Traveled to known affect area: No History of Present Illness HPI 51-year-old female came to the emergency room from the interventional radiology suite after getting a ultrasound-guided paracentesis. Patient has stage III ovarian cancer with [place] syndrome. However she mentioned to the interventional radiologist that she has been having some upper abdominal pain, vomiting for past 1 week almost. Radiologist decided to do a CT scan which showed small bowel obstruction. Patient was asked if she wanted to go home and contact her oncologist or come to the emergency room he decided to come to the ER to be admitted if possible. Patient's oncologist is Dr. Garcia. Patient says that she had this set of blood test done yesterday at the oncology center. Patient received 1 L of IV fluid bolus while she was out on the ambulance hallway. Currently she does not appear to be in any significant distress. Vital signs are stable otherwise. [facility] Past Medical History Narrative Medical List of her past medical, surgical, social and family history is reviewed from the nursing note. Asthma: No Blood Disorders: No Anxiety: Yes Depression: No Heart Rhythm Problems: No Cancer: Yes (ovarian) Cardiovascular Problems: No High Cholesterol: No Chemotherapy: Yes (daily pill) Chest Pain: No Congestive Heart Failure: No COPD: No Diabetes: No Diminished Hearing: No Endocrine: Yes Gastrointestinal Disorders: Yes (gastroparesis, ACUTE GASTRITIS) Genitourinary: No Hepatitis: No Hiatal Hernia: Yes Hypertension: Yes Immune Disorder: No Implanted Vascular Access Dvce: Yes Musculoskeletal: No Neurologic: No Psychiatric: Yes (ANXIETY) Reproductive: Yes (tumors on both ovaries) Respiratory: Yes (SOBB w/ exersion) Immunizations Current: No Radiation Therapy: No Sleep Apnea: No Thyroid Disease: Yes (HYPOTHYROID) Tubal Ligation: Yes Past Surgical History Abdominal Surgery: Yes (hemorroid banding ) AICD: No Body Medical Devices: INFUSAPORT LEFT CHEST Cardiac Surgery: No Cholecystectomy: Yes Ear Surgery: No Endocrine Surgery: No Eye Surgery: No Genitourinary Surgery: No Gynecologic Surgery: Yes (tubaligation endometrial ablation) Hysterectomy: Yes Joint Replacement: No Oral Surgery: No Pacemaker: No Thoracic Surgery: No Other Surgery: Yes (hernia) Social History Alcohol Use: No Tobacco Use: No Substance Use: No Allergies-Medications (Allergen,Severity, Reaction): Coded Allergies: carboplatin (Verified Allergy, Severe, Throat swelling , 03/26/17) sulfamethoxazole (Verified Allergy, Intermediate, SWELLING, 03/26/17) trimethoprim (Verified Allergy, Intermediate, SWELLING, 03/26/17) Comments List of her allergies reviewed from the nursing note. Reported Meds & Prescriptions Reported Meds & Active Scripts Active Reported [chemoterapy ] PO DAILY Amlodipine (Amlodipine Besylate) 5 Mg Tab 5 Mg PO BID Pantoprazole (Pantoprazole Sodium) 40 Mg Tab 40 Mg PO DAILY Percocet (Oxycodone-Acetaminophen) 5-325 mg Tab 1 Tab PO DIRECTED PRN Clonazepam 1 Mg Tab 1 Mg PO HS Citalopram (Citalopram Hydrobromide) 10 Mg Tab 5 Mg PO DAILY Dicyclomine (Dicyclomine HCl) 10 Mg Cap 10 Mg PO DAILY Levothyroxine (Levothyroxine Sodium) 75 Mcg Tab 75 Mcg PO DAILY Narrative Medication List of her home medications reviewed from the nursing note. Review of Systems Except as stated in HPI: all other systems reviewed are Neg Gastrointestinal: Positive: Nausea, Vomiting, Abdominal Pain Physical Exam Narrative GENERAL: Awake, alert, no obvious distress SKIN: Focused skin assessment warm/dry. HEAD: Atraumatic. Normocephalic. EYES: Pupils equal and round. No scleral icterus. No injection or drainage. ENT: No nasal bleeding or discharge. Mucous membranes pink and moist. NECK: Trachea midline. No JVD. CARDIOVASCULAR: Regular rate and rhythm. No murmur appreciated. RESPIRATORY: No accessory muscle use. Clear to auscultation. Breath sounds equal bilaterally. GASTROINTESTINAL: Abdomen soft, non-tender, slightly distended. Hepatic and splenic margins not palpable. MUSCULOSKELETAL: No obvious deformities. No clubbing. No cyanosis. No edema. NEUROLOGICAL: Awake and alert. No obvious cranial nerve deficits. Motor grossly within normal limits. Normal speech. PSYCHIATRIC: Appropriate mood and affect; insight and judgment normal. Data Data Orders Orders Iv Access Insert/Monitor (03/26/17 16:11) Ecg Monitoring (03/26/17 16:11) Oximetry (03/26/17 16:11) Morphine Inj (Morphine Inj) (03/26/17 16:15) Ondansetron Inj (Zofran Inj) (03/26/17 16:15) Sodium Chloride 0.9% Flush (Ns Flush) (03/26/17 16:15) Insert Ng Tube (03/26/17 16:11) Diet Npo (03/26/17 Dinner) Admit Order (Ed Use Only) (03/26/17 16:33) MDM Medical Decision Making Medical Screen Exam Complete: Yes Emergency Medical Condition: Yes Medical Record Reviewed: Yes Differential Diagnosis Small bowel obstruction, stage III ovarian cancer, [place] syndrome Narrative Course 4:40 PM I discussed the case with Dr. Garcia and he requested the patient to be admitted under hospitalist service. He will consult on the patient and he also wanted a general surgery consult. I did not order any further blood test results CBC and CMP was done yesterday and they were within acceptable limits. Patient already had the CT scan done. I discussed the case with the hospitalist who has accepted the patient. I have ordered a nasogastric tube which the nurse will place. Procedures EKG Prior to Arrival: No Physician Communication Physician Communication Dr. Garcia Diagnosis Primary Impression: Small bowel obstruction Additional Impressions: Ovarian cancer Qualified Codes: C56.9 - Malignant neoplasm of unspecified ovary [place] syndrome Admitting Information Admitting Physician Requests: it Jose Powers MD Mar 26, 2017 16:42
[2017-03-26 16:43] VITALS: BP 138/84; PULSE 99; RESP 22; O2SAT 100
[2017-03-26] MEDS ORDERED: ENALAPRILAT 1.25 MG/ML VIAL IV PUSH PRN (17:00)
[2017-03-26] MEDS ORDERED: [UNRECOGNIZED DRUG - REMARK] PO (17:01)
--- NOTE | 2017-03-26 17:25 | HHI.HP ---
HPI Service [facility] Hospitalists Primary Care Physician Annalisa Jenkins MD Admission Diagnosis small bowel obstruction, stage III ovarian cancer Chief Complaint: Nausea/vomiting Travel History International Travel<30 Days: No Contact w/Intl Traveler <30 Da: No Traveled to Known Affected Are: No History of Present Illness Ms. Henley is a pleasant 51 y/o with metastatic ovarian cancer on oral chemo with Zejula 200mg po daily and follows with Dr. Garcia. Pt reports that for the last week and a half she has been having issues with nausea/vomiting and constipation. She states that in the last 10 days she has had one BM which was 4 days ago and that was after using 2 enemas. She was also using MOM at home for constipation without relief. She has not been able to tolerate much oral intake and has been receiving IVF from her Oncologist, Dr. Garcia. Pt was in our IR department today getting a therapeutic paracentesis with removal of 1000mL of ascetic fluid. She told the radiologist about her nausea and vomiting and a CT Abd/pelvis was ordered which revealed a distal SBO with transition point in the right lower quadrant and loculated ascites. Pt was sent to the ED for admission and surgical consultation. Pt reports that she has not had much of any flatus for the last 3-4 days. She has had vomiting today and has not been eating or drinking much. She has been able to keep her medications down as far as she knows. Pt does have some upper abdominal pain which is a chronic issue. Denies any hematemesis, coffee-ground emesis, chest pain, SOB, palpitations. Review of Systems Constitutional: DENIES: Fever, Chills Eyes: DENIES: Vision loss Ears, nose, mouth, throat: DENIES: Hearing loss Respiratory: DENIES: Cough, Shortness of breath Cardiovascular: DENIES: Chest pain, Palpitations Gastrointestinal: COMPLAINS OF: Abdominal pain, Constipation, GERD, Nausea, Vomiting, DENIES: Black stools, Bloody stools Genitourinary: DENIES: Urinary frequency, Urgency Musculoskeletal: DENIES: Back pain, Neck pain Integumentary: DENIES: Rash Neurologic: DENIES: Headache Psychiatric: DENIES: Confusion Past Family Social History Past Medical History Metastatic ovarian cancer, follows with Dr. Garcia Elevated BP related to chemo per the pt GERD Gastroparesis Hypothyroidism Situational depression Past Surgical History Laparoscopy with extensive ADI, robotic assisted hysterectomy with BSO, omentectomy and resection of intraperitoneal tumor on 10/03/2014 Port placement in 2014 Lap eric Tubal ligation Reported Medications [chemoterapy ] PO DAILY Amlodipine (Amlodipine Besylate) 5 Mg Tab 5 Mg PO BID Pantoprazole (Pantoprazole Sodium) 40 Mg Tab 40 Mg PO DAILY Percocet (Oxycodone-Acetaminophen) 5-325 mg Tab 1 Tab PO DIRECTED PRN Clonazepam 1 Mg Tab 1 Mg PO HS Citalopram (Citalopram Hydrobromide) 10 Mg Tab 5 Mg PO DAILY Dicyclomine (Dicyclomine HCl) 10 Mg Cap 10 Mg PO DAILY Levothyroxine (Levothyroxine Sodium) 75 Mcg Tab 75 Mcg PO DAILY Allergies: Coded Allergies: carboplatin (Verified Allergy, Severe, Throat swelling , 03/26/17) sulfamethoxazole (Verified Allergy, Intermediate, SWELLING, 03/26/17) trimethoprim (Verified Allergy, Intermediate, SWELLING, 03/26/17) Family History Father with hx of pancreatic cancer Social History Denies any alcohol, tobacco or illicit drug use Physical Exam Vital Signs Vital Signs Date Time Temp Pulse Resp B/P (MAP) Pulse Ox O2 Delivery O2 Flow Rate FiO2 03/26/17 16:44 (102) Room Air 03/26/17 16:43 99 22 138/84 (102) 100 Room Air Physical Exam GENERAL: This is a well-nourished, well-developed patient, in no apparent distress. HEENT: Atraumatic. Normocephalic. No temporal or scalp tenderness. No scleral icterus. Airway patent. NECK: Trachea midline, supple, nontender. CARDIO: Regular, tachy. RESP: CTA bilaterally. No wheezes, rales, or rhonchi. ABD: Absent bowel sounds, semi-firm, distended, mild epigastric tenderness. EXT: Extremities without clubbing, cyanosis, or edema. NEURO: Awake and alert. Motor and sensory grossly within normal limits. Normal speech. Septic Shock Reassessment Heart: Regular rate and rhythm, Other Lungs: Clear Skin: Warm Caprini VTE Risk Assessment Caprini VTE Risk Assessment: Mod/High Risk (score >= 2) Caprini Risk Assessment Model Point Value = 1 Point Value = 2 Point Value = 3 Point Value = 5 Age 41-60 Minor surgery BMI > 25 kg/m2 Swollen legs Varicose veins or History of unexplained or recurrent spontaneous Oral contraceptives or hormone replacement Sepsis (< 1 month) Serious lung disease, including pneumonia (< 1 month) Abnormal pulmonary function Acute myocardial infarction Congestive heart failure (< 1 month) History of inflammatory bowel disease Medical patient at bed rest Age 61-74 Arthroscopic surgery Major open surgery (> 45 min) Laparoscopic surgery (> 45 min) Malignancy Confined to bed (> 72 hours) Immobilizing plaster cast Central venous access Age >= 75 History of VTE Family history of VTE Factor V Leiden Prothrombin [id number] Lupus anticoagulant Anticardiolipin antibodies Elevated serum homocysteine Heparin-induced thrombocytopenia Other congenital or acquired thrombophilia Stroke (< 1 month) Elective arthroplasty Hip, pelvis, or leg fracture Acute spinal cord injury (< 1 month) Prophylaxis Regimen Total Risk Factor Score Risk Level Prophylaxis Regimen 0-1 Low Early ambulation 2 Moderate Order ONE of the following: *Sequential Compression Device (SCD) *Heparin 5000 units SQ BID 3-4 Higher Order ONE of the following medications: *Heparin 5000 units SQ TID *Enoxaparin/Lovenox 40 mg SQ daily (WT < 150 kg, CrCl > 30 mL/min) *Enoxaparin/Lovenox 30 mg SQ daily (WT < 150 kg, CrCl > 10-29 mL/min) *Enoxaparin/Lovenox 30 mg SQ BID (WT < 150 kg, CrCl > 30 mL/min) AND/OR *Sequential Compression Device (SCD) 5 or more Highest Order ONE of the following medications: *Heparin 5000 units SQ TID (Preferred with Epidurals) *Enoxaparin/Lovenox 40 mg SQ daily (WT < 150 kg, CrCl > 30 mL/min) *Enoxaparin/Lovenox 30 mg SQ daily (WT < 150 kg, CrCl > 10-29 mL/min) *Enoxaparin/Lovenox 30 mg SQ BID (WT < 150 kg, CrCl > 30 mL/min) AND *Sequential Compression Device (SCD) Assessment and Plan Problem List: (1) Small bowel obstruction ICD Codes: K56.609 - Unspecified intestinal obstruction, unspecified as to partial versus complete obstruction; J90 - Pleural effusion, not elsewhere classified; R18.8 - Other ascites Status: Acute Plan: Pt is a 51 y/o female with metastatic ovarian cancer on oral chemo with Zejula 200mg po daily and follows with Dr. Garcia. Pt reports that for the last week and a half she has been having issues with nausea/vomiting and constipation. She states that in the last 10 days she has had one BM which was 4 days ago and that was after using 2 enemas. She was also using MOM at home for constipation without relief. She has not been able to tolerate much oral intake and has been receiving IVF from her Oncologist, Dr. Garcia. Pt was in our IR department today getting a therapeutic paracentesis with removal of 1000mL of ascetic fluid. She told the radiologist about her nausea and vomiting and a CT Abd/ pelvis was ordered which revealed a distal SBO with transition point in the right lower quadrant and loculated ascites. Pt was sent to the ED for admission and surgical consultation. SBO with transition point in RLQ Nausea/vomiting Constipation - NGT to be placed in the ED - NGT to LIWS - NPO - General surgery consultation - IVF, gentle hydration given her ascites - Zofran PRN - Protonix 40mg IV Q12H - Supportive care - Recheck labs in AM Metastatic Ovarian Cancer, recurrent Recurrent malignant ascites - Pt follows with Dr. Garcia - She was previously treated with Taxol chemotherapy with initial reduction in her CA-125 and improvement in her measurable disease on the PET scan - Pt is currently taking Zejula 200mg po daily - She had paracentesis today with removal of 1000mL of ascitic fluid - This will be held while the pt is NPO - Dr. Garcia is aware of the pts admission. Elevated BP, reportedly secondary to chemo - Pt was recently started on Norvasc 5mg po BID, this will be held while pt is NPO - Vasotec PRN GERD - PPI Hypothyroidism - Home meds to be resumed once tolerating po intake DVT prophylaxis with SCDs for now until evaluates (2) Elevated BP without diagnosis of hypertension ICD Codes: R03.0 - Elevated blood-pressure reading, without diagnosis of hypertension Status: Chronic Plan: - See above (3) Ovarian cancer ICD Codes: C56.9 - Malignant neoplasm of unspecified ovary Status: Chronic Plan: - See above (4) Ascites ICD Codes: R18.8 - Ascites Status: Chronic Plan: - See above (5) Hypothyroid ICD Codes: E03.9 - Hypothyroidism Status: Chronic Plan: - See above Assessment and Plan Patient examined. Assessment and plan formulated with Jill Hill PA-C. I agree with the above. ovarian ca. undergoing po chemo. recurrent ascites and paracentesis. found to have bowel obstruction with transition point today. possible adhesions vs tumor obstruction. ngt placement. ivf. surgical consultation. Physician Certification 2 Midnight Certification Type: Admission for Inpatient Services Order for Inpatient Services The services are ordered in accordance with Medicare regulations or non- Medicare payer requirements, as applicable. In the case of services not specified as inpatient-only, they are appropriately provided as inpatient services in accordance with the 2-midnight benchmark. Estimated LOS (days): 3 3 days is the estimated time the patient will need to remain in the hospital, assuming treatment plan goals are met and no additional complications. Post-Hospital Plan: Not yet determined Problem Qualifiers (1) Ovarian cancer: Qualified Codes: C56.9 - Malignant neoplasm of unspecified ovary (2) Ascites: Qualified Codes: R18.0 - Malignant ascites Jill Hill Mar 26, 2017 17:25 Jeff Hamilton MD Mar 26, 2017 21:13
[2017-03-26] MEDS ORDERED: ACETAMINOPHEN 1000 MG/100 ML VIAL IV PRN (17:30)
--- NOTE | 2017-03-26 17:50 | RADRPT ---
EXAM DATE/TIME: 03/26/2017 17:26 [facility] COMPARISON: No previous studies available for comparison. INDICATIONS : Evalaute for NG tube placement. MEDICAL HISTORY : None. SURGICAL HISTORY : None. ENCOUNTER: Initial ACUITY: 1 day PAIN SCORE: 0/10 LOCATION: Abdomen FINDINGS: Nasogastric tube across the GE junction. Moderate gas distention of proximal small bowel. Lung base are clear. CONCLUSION: Nasogastric tube coiled in the stomach, across the GE junction. Ethan Dubose MD FACR on March 26, 2017 at 17:47 Board Certified Radiologist. This report was verified electronically.
[2017-03-26] MEDS: NS + KCL 20 MEQ INJ 1,000 ML IV SCH (18:08)
[2017-03-26] MEDS: PANTOPRAZOLE SODIUM 40 MG VIAL IV PUSH SCH (18:08)
[2017-03-26 19:24] VITALS: BP 149/83; PULSE 99; RESP 16; O2SAT 98
[2017-03-26 20:00] VITALS: BP 165/83; PULSE 102; RESP 18; TEMP 97.8; O2SAT 95
[2017-03-26] MEDS ORDERED: PILL SPLITTER OTHER PRN (22:00)
[2017-03-26] MEDS: CITALOPRAM HYDROBROMIDE 20 MG TAB PO SCH (22:37)
[2017-03-26] MEDS: MORPHINE SULFATE 4 MG/ML INJ IV PUSH PRN (22:37)
[2017-03-27 03:43] VITALS: BP 149/82; PULSE 93; RESP 18; TEMP 96.8; O2SAT 97
[2017-03-27] MEDS: NS + KCL 20 MEQ INJ 1,000 ML IV SCH ×2 (06:25→20:06)
[2017-03-27] MEDS: PANTOPRAZOLE SODIUM 40 MG VIAL IV PUSH SCH ×2 (06:26→17:27)
[2017-03-27] MEDS: ONDANSETRON HCL 4 MG/2 ML VIAL IV PRN ×2 (06:31→20:18)
[2017-03-27 07:07] LABS: AUTOMATED NEUTROPHIL # 5.1 TH/MM3 (1.8-7.7); BASOPHIL % 0.5 % (0.0-2.0); EOSINOPHIL % 0.7 % (0.0-4.0); HEMATOCRIT 32.5 % (35.0-46.0); HEMO FLAGS DIFF FINAL; LYMPH % 9.4 % (9.0-44.0); LYMPHOCYTE # 0.6 TH/MM3 (1.0-4.8); MEAN CELL VOLUME 93.7 FL (80.0-100.0); MEAN CORPUSCULAR HEMOGLOBIN 31.6 PG (27.0-34.0); MEAN CORPUSCULAR HGB CONC 33.8 % (32.0-36.0); MONO % 13.5 % (0.0-8.0); NEUT % 75.9 % (16.0-70.0); PLATELET COUNT 192 TH/MM3 (150-450); RED BLOOD COUNT 3.47 MIL/MM3 (4.00-5.30); RED CELL DISTRIBUTION WIDTH 20.4 % (11.6-17.2); WHITE BLOOD COUNT 6.7 TH/MM3 (4.0-11.0)
[2017-03-27 07:30] LABS: MAGNESIUM 1.8 MG/DL (1.5-2.5); POTASSIUM 3.4 MEQ/L (3.5-5.1)
[2017-03-27] MEDS: MORPHINE SULFATE 4 MG/ML INJ IV PUSH PRN ×3 (07:35→20:09)
[2017-03-27 08:00] VITALS: BP 140/85; PULSE 91; RESP 17; TEMP 96.9; O2SAT 98
--- NOTE | 2017-03-27 09:47 | HHI.PR ---
Subjective Remarks Pt had about 400mL of gastric output after NGT placed in ED last night. She had about 75mL out overnight but nursing staff thinks there was a problem with the suction The pt was nauseated and had some vomiting this morning but once the suction on the NGT was adjusted the nausea has been much better She has had out about 175mL since the NGT suction was adjusted this morning ( about 2 hours ago) Objective Vitals Vital Signs Date Time Temp Pulse Resp B/P (MAP) Pulse Ox O2 Delivery O2 Flow Rate FiO2 03/27/17 08:00 96.9 91 17 140/85 (103) 98 03/27/17 03:43 96.8 93 18 149/82 (104) 97 03/26/17 20:00 97.8 102 18 165/83 (110) 95 03/26/17 19:44 03/26/17 19:24 99 16 149/83 (105) 98 Room Air 03/26/17 16:44 (102) Room Air 03/26/17 16:43 99 22 138/84 (102) 100 Room Air Result Diagram: 03/27/17 0625 03/27/17 0625 Other Results Laboratory Tests Test 03/27/17 06:25 White Blood Count 6.7 TH/MM3 Red Blood Count 3.47 MIL/MM3 Hemoglobin 11.0 GM/DL Hematocrit 32.5 % Mean Corpuscular Volume 93.7 FL Mean Corpuscular Hemoglobin 31.6 PG Mean Corpuscular Hemoglobin Concent 33.8 % Red Cell Distribution Width 20.4 % Platelet Count 192 TH/MM3 Mean Platelet Volume 7.2 FL Neutrophils (%) (Auto) 75.9 % Lymphocytes (%) (Auto) 9.4 % Monocytes (%) (Auto) 13.5 % Eosinophils (%) (Auto) 0.7 % Basophils (%) (Auto) 0.5 % Neutrophils # (Auto) 5.1 TH/MM3 Lymphocytes # (Auto) 0.6 TH/MM3 Monocytes # (Auto) 0.9 TH/MM3 Eosinophils # (Auto) 0.0 TH/MM3 Basophils # (Auto) 0.0 TH/MM3 CBC Comment DIFF FINAL Differential Comment Blood Urea Nitrogen 9 MG/DL Creatinine 0.72 MG/DL Random Glucose 81 MG/DL Calcium Level 8.1 MG/DL Magnesium Level 1.8 MG/DL Sodium Level 139 MEQ/L Potassium Level 3.4 MEQ/L Chloride Level 103 MEQ/L Carbon Dioxide Level 25.0 MEQ/L Anion Gap 11 MEQ/L Estimat Glomerular Filtration Rate 85 ML/MIN Imaging Last Impressions Abdomen X-Ray 03/26/17 0000 Signed Impressions: Service Date/Time: Friday, March 26, 2017 17:26 - CONCLUSION: Nasogastric tube coiled in the stomach, across the GE junction. Ethan Dubose MD FACR Objective Remarks General: NAD, AAOx3 ENT: NGT in right nare Chest: CTA Cardiac: Regular Abd: +BS, soft, mildly distended Ext: No edema A/P Problem List: (1) Small bowel obstruction ICD Codes: K56.609 - Unspecified intestinal obstruction, unspecified as to partial versus complete obstruction; J90 - Pleural effusion, not elsewhere classified; R18.8 - Other ascites Status: Acute Plan: Pt is a 51 y/o female with metastatic ovarian cancer on oral chemo with Zejula 200mg po daily and follows with Dr. Garcia. Pt reports that for the last week and a half she has been having issues with nausea/vomiting and constipation. She states that in the last 10 days she has had one BM which was 4 days ago and that was after using 2 enemas. She was also using MOM at home for constipation without relief. She has not been able to tolerate much oral intake and has been receiving IVF from her Oncologist, Dr. Garcia. Pt was in our IR department today getting a therapeutic paracentesis with removal of 1000mL of ascetic fluid. She told the radiologist about her nausea and vomiting and a CT Abd/ pelvis was ordered which revealed a distal SBO with transition point in the right lower quadrant and loculated ascites. Pt was sent to the ED for admission and surgical consultation. SBO with transition point in RLQ Nausea/vomiting Constipation - NGT placed in the ED - NGT to LIWS - NPO - General surgery consultation - IVF, gentle hydration given her ascites - Zofran PRN - Protonix 40mg IV Q12H - Supportive care - Monitor labs - Pt requesting ice chips, but will leave this to general surgery, Ok for mouth swabs Metastatic Ovarian Cancer, recurrent Recurrent malignant ascites - Pt follows with Dr. Garcia - She was previously treated with Taxol chemotherapy with initial reduction in her CA-125 and improvement in her measurable disease on the PET scan - Pt is currently taking Zejula 200mg po daily - She had paracentesis today with removal of 1000mL of ascitic fluid - This will be held while the pt is NPO - Dr. Garcia is aware of the pts admission. Elevated BP, reportedly secondary to chemo - Pt was recently started on Norvasc 5mg po BID, this will be held while pt is NPO - Vasotec PRN GERD - PPI Hypothyroidism - Home meds to be resumed once tolerating po intake DVT prophylaxis with SCDs for now until evaluates (2) Elevated BP without diagnosis of hypertension ICD Codes: R03.0 - Elevated blood-pressure reading, without diagnosis of hypertension Status: Chronic Plan: - See above (3) Ovarian cancer ICD Codes: C56.9 - Malignant neoplasm of unspecified ovary Status: Chronic Plan: - See above (4) Ascites ICD Codes: R18.8 - Ascites Status: Chronic Plan: - See above (5) Hypothyroid ICD Codes: E03.9 - Hypothyroidism Status: Chronic Plan: - See above Assessment and Plan Patient examined. Assessment and plan formulated with Jill Hill PA-C. I agree with the above. ovarian ca . recurrent ascites. presents with n/v and sbo and transition point. no flatus or bm. ngt to suction. await surgical and lending advisor onc input. ambulate. Problem Qualifiers (1) Ovarian cancer: Qualified Codes: C56.9 - Malignant neoplasm of unspecified ovary (2) Ascites: Qualified Codes: R18.0 - Malignant ascites Jill Hill Mar 27, 2017 09:47 Jeff Hamilton MD Mar 27, 2017 14:03
[2017-03-27 12:00] VITALS: BP 127/80; PULSE 93; RESP 18; TEMP 98.2; O2SAT 97
[2017-03-27 16:00] VITALS: BP 139/100; PULSE 112; RESP 19; TEMP 96.3; O2SAT 97
--- NOTE | 2017-03-27 16:44 | MB ---
cc: ELENA FAJARDO MD,JOSE BERMAN,FELIPE López M.D. Jill Sullivan MD DATE OF CONSULTATION: 03/27/2017 REQUESTING PHYSICIAN: Jose Powers REASON FOR CONSULTATION: Patient known to us with recurrent ovarian cancer. REASON FOR ADMISSION Small bowel obstruction. HISTORY 50-year-old female with recurrent stage IIIC bilateral ovarian cancer who is currently on her sixth line of chemotherapy. She has been on the oral Zejula (Park inhibitor) for the last six weeks she was seen recently in our office where she was feeling somewhat poorly, having rapid reaccumulation of ascites and abdominal distension, requiring paracentesis. She has had some early satiety, nausea and at times vomiting. She was seen recently in our office. She was encouraged to stay on the current therapy as it was recently changed and her last two CA-125 as were relatively stable. It is hoped that with longer time on this medication. She will continue to improve. She went for therapeutic paracentesis yesterday and we had requested that the loculated fluid in the left upper quadrant be drained for symptomatic relief. Dr. Deion Mcallister oversaw the procedure and graciously gave me a call after he drained approximately one liter of ascites but he had noticed there is a change in her loops of bowel were dilated which seemed different from the CT scan she had approximately 2 weeks ago. Furthermore, she had some clinical signs and symptoms concerning for small bowel obstruction. Accordingly we agreed to repeat a CT scan of abdomen and pelvis with oral and IV contrast and it showed again ascites multiple dilated loops of small bowel with what does seem to be a transition point in the distal ileum and the right lower quadrant with relatively decompressed large bowel. There is no overt mass effect of measurable tumor, but given her history the concern is multifocal small tumor implants or plaques of tumor and/or adhesions that may be contributing to obstruction. She was feeling poorly and advised to go to emergency room and she agreed with that recommendation. She was seen and evaluated emergency room. I am grateful for their care the care of the hospitalist who has now admitted her for further evaluation and management. She has a nasogastric tube placed. It is draining adequately. She is on IV fluids and she is seen now in consultation for further evaluation recommendations regarding these findings. PAST MEDICAL HISTORY Ovarian cancer as outlined above. Also anemia gastroesophageal reflux her for ovarian cancer is diagnosed and 2014 PAST SURGICAL HISTORY: Past surgical history includes the hysterectomy, oophorectomy, omentectomy, tumor debulking in 2014. She has had a cholecystectomy. She had prior to hysterectomy. She had a tubal ligation and endometrial ablation. She is up-to-date on colonoscopy. GYNECOLOGIC HISTORY Two pregnancies, two deliveries. She was menopausal age 44. FAMILY HISTORY Noncontributory SOCIAL HISTORY She is accompanied by her mom who is supportive and is present with her for essentially all encounters. ALLERGIES BACTRIM REVIEW OF SYSTEMS Review of systems is as per history of present illness. She has not had any bright red blood or melanotic stool change up until a few days ago she was still passing gas and having occasional bowel movements. No hematuria. No febrile illness. No-one else in the house is been sick and since being in the hospital. She actually has some alleviation of her symptoms. She has been sitting up out of bed and she has been walking around the room and the hospital marie with the tube clamped and briefly to allow her to ambulate. Her pain is adequately controlled. She has some relief abdominal distension after her paracenteses yesterday. OBJECTIVE CT scan of abdomen and pelvis is as described above. Labs show her H&H to be 11 and 32.5 white count 6.7, platelets 192. Electrolytes essentially normal except for slightly low potassium of 3.4. She has preserved renal function with BUN and creatinine 90.72, nasogastric tube was put out at least 475 since it was placed. PHYSICAL EXAMINATION VITAL SIGNS: Afebrile, pulse 93, respirations 18, blood pressure 127/80, O2 saturations 97%. IN GENERAL: She is alert, oriented x3 in no acute distress. She is out of bed, appears comfortable. She is sitting in a chair. She is in good spirits. LUNGS: Lungs are clear mild basilar rales. CARDIOVASCULAR SYSTEM: Regular rate and rhythm. BACK: The back is nontender. ABDOMEN: Abdomen is distended and firm. Bowel sounds are hypoactive but there is no rebound or guarding. EXTREMITIES: Extremities show trace to 1+ chronic symmetrical edema. No palpable cords. DISCUSSION: Time is spent discussion with her and her mom reviewing the findings in her case today. I am sorry she is feeling poorly, certainly she did the right pain coming to the hospital. I summarized the findings on CT scan and on in her clinical findings consistent with a small bowel obstruction. I explained that whereas there is no obvious tumor mass detectable on CT scan. The concern is in this obstruction may be directly or indirectly related to tumor as ovarian cancer can produce multifocal tumor implants or plaque-like areas that can fix loops of bowel or mesentery and to hinder normal peristalsis and contribute to obstruction. It was explained that there may be a partial narrowing that has worsened and in which case the bowel wall gets edematous and fluid in gas builds up in the small bowel and it becomes dilated, further hindering normal digestive process. Accordingly the rationale for the nasogastric tube is to help alleviate fluid and gas pressure from going from the stomach into the small bowel to try to help alleviate some of that swelling and see if the obstruction can be relieved without surgical intervention. It is hoped that bowel rest, nasogastric compression IV fluid and electrolyte resuscitation, ambulation and minimal use of narcotics all would help resolve this without surgical intervention. However, it is possible that surgery may be necessary to alleviate the obstruction and we talked some about surgery to what extent and to what step surgery would entail is uncertain until a surgical evaluation but might be lysing adhesions, it might be removing some focal tumor might be segmental bowel resection with reanastomosis and might require diverting ostomy which would be a last resort if there was no other way to alleviate the obstruction such as if there was multifocal bowel obstruction or impending bowel obstructions or no tumor free help the bowel to reanastomose safely. I appreciate the input and experience from our general surgeons and requested a general surgery consult for evaluation and management given her small bowel obstruction and will work with them and ultimately defer to their judgment regarding if and when surgery is indicated if we cannot get this problem to resolve by conservative measures. With respect to her cancer care. I will still have her stay on the Zejula to continue to take a while she is in the hospital (and she did bring her own medications and it is been taken and tracked by the nurses and pharmacist) and have the tube clamped for 30-60 minutes after taking medication as I think it is still too early to determine the effectiveness. Discussion ensued questions were answered. She was grateful for the care provided and time spent and she agrees. ASSESSMENT 1. Recurrent stage III C bilateral ovarian cancer. 2. On line six oral Park inhibitor (Zejula). 3. Admitted with small-bowel obstruction with radiographic imaging suggesting a focal point in the right lower quadrant was likely correlates to the distal small bowel. 4. Extensive discussion. PLAN 1. Agree with hospital admission and grateful for the excellent medical care. 2. Continue nasogastric decompression, IV fluid resuscitation and electrolyte correction supportive care, encourage ambulation minimal narcotic use in hopes of resolution with conservative measures. 3. General surgery has been consulted to help oversee an evaluation and management given small bowel obstruction. MD MACIEJ Jarvis/cl /3:04 PM /4:25 PM
[2017-03-27 20:00] VITALS: BP 162/86; PULSE 97; RESP 18; TEMP 98.6; O2SAT 98
[2017-03-27] MEDS: ZEJULA PO SCH (20:07)
[2017-03-27] MEDS: CITALOPRAM HYDROBROMIDE 20 MG TAB PO SCH (20:08)
[2017-03-28] VITALS: BP 155/86; PULSE 94; RESP 18; TEMP 96.5; O2SAT 96
[2017-03-28 04:00] VITALS: BP 161/89; PULSE 92; RESP 18; TEMP 96.5; O2SAT 97
[2017-03-28] MEDS: ONDANSETRON HCL 4 MG/2 ML VIAL IV PRN ×3 (04:14→22:05)
[2017-03-28] MEDS: PANTOPRAZOLE SODIUM 40 MG VIAL IV PUSH SCH ×2 (06:05→17:57)
[2017-03-28 06:57] LABS: AUTOMATED NEUTROPHIL # 7.2 TH/MM3 (1.8-7.7); BASOPHIL % 0.2 % (0.0-2.0); EOSINOPHIL % 0.4 % (0.0-4.0); HEMO FLAGS DIFF FINAL; LYMPH % 5.3 % (9.0-44.0); LYMPHOCYTE # 0.5 TH/MM3 (1.0-4.8); MEAN CELL VOLUME 95.7 FL (80.0-100.0); MEAN CORPUSCULAR HEMOGLOBIN 31.5 PG (27.0-34.0); MEAN CORPUSCULAR HGB CONC 32.9 % (32.0-36.0); NEUT % 84.1 % (16.0-70.0); PLATELET COUNT 186 TH/MM3 (150-450); RED BLOOD COUNT 3.34 MIL/MM3 (4.00-5.30); RED CELL DISTRIBUTION WIDTH 21.2 % (11.6-17.2); WHITE BLOOD COUNT 8.5 TH/MM3 (4.0-11.0)
[2017-03-28 07:03] LABS: BICARBONATE 23.7 MEQ/L (21.0-32.0); MAGNESIUM 1.8 MG/DL (1.5-2.5); POTASSIUM 3.8 MEQ/L (3.5-5.1)
--- NOTE | 2017-03-28 07:44 | MB ---
cc: FELICIA BULL DATE OF CONSULTATION: 03/28/2017 DATE OF : 1965 HISTORY OF PRESENT ILLNESS This is a 51-year-old female with a history of metastatic ovarian cancer on chemotherapy, who presented for a paracentesis two days prior. During the CAT scan she was noted to have findings concerning for a bowel obstruction. She also reported about a week history of nausea and vomiting. She was admitted to [facility] at that time. She denies passing gas. She does complain of abdominal pain. PAST MEDICAL HISTORY Significant for above as well as: 1. Hysterectomy with bilateral salpingo-oophorectomy. 2. Tubal ligation. 3. Laparoscopic cholecystectomy. 4. Hypothyroidism. ALLERGIES 1. BACTRIM. 2. CARBOPLATIN. SOCIAL HISTORY She does not smoke. FAMILY HISTORY Noncontributory. REVIEW OF SYSTEMS Significant for above. PHYSICAL EXAMINATION GENERAL: On exam she is lying in bed in no acute distress. HEENT: Pupils are equal and reactive. NG tube in place. LUNGS: Respiration clear. HEART: Regular. ABDOMEN: Distended. Positive tenderness in the right lower quadrant. EXTREMITIES: No deformities. NEUROLOGIC: Nonfocal. LABORATORY Hemoglobin 11, WBC 3.5. IMAGING Radiologic images reviewed. ASSESSMENT AND PLAN This is a patient with small bowel obstruction, questionably related to tumor versus adhesions. Will continue current treatment with NG tube and bowel rest. If no improvement over the next few days, will plan for laparoscopy. MD LEANNE Mcelroy/BRUCE /7:19 AM /7:29 AM
[2017-03-28 08:00] VITALS: BP 172/93; PULSE 87; RESP 16; TEMP 97.6; O2SAT 96
[2017-03-28] MEDS: NS + KCL 20 MEQ INJ 1,000 ML IV SCH ×2 (09:23→18:03)
--- NOTE | 2017-03-28 09:40 | HHI.PR ---
Subjective Remarks Pt is very anxious this morning, reports that she is not sleeping well She has more abdominal distension but this may be related to ascites as she has been receiving IVF as she is NPO No flatus or BM No vomiting Objective Vitals Vital Signs Date Time Temp Pulse Resp B/P (MAP) Pulse Ox O2 Delivery O2 Flow Rate FiO2 03/28/17 04:00 96.5 92 18 161/89 (113) 97 03/28/17 00:00 96.5 94 18 155/86 (109) 96 03/27/17 20:00 98.6 97 18 162/86 (111) 98 03/27/17 16:00 96.3 112 19 139/100 (113) 97 03/27/17 12:00 98.2 93 18 127/80 (96) 97 Result Diagram: 03/28/17 0610 03/28/17 0610 Other Results Laboratory Tests Test 03/27/17 06:25 03/28/17 06:10 White Blood Count 6.7 TH/MM3 8.5 TH/MM3 Red Blood Count 3.47 MIL/MM3 3.34 MIL/MM3 Hemoglobin 11.0 GM/DL 10.5 GM/DL Hematocrit 32.5 % 32.0 % Mean Corpuscular Volume 93.7 FL 95.7 FL Mean Corpuscular Hemoglobin 31.6 PG 31.5 PG Mean Corpuscular Hemoglobin Concent 33.8 % 32.9 % Red Cell Distribution Width 20.4 % 21.2 % Platelet Count 192 TH/MM3 186 TH/MM3 Mean Platelet Volume 7.2 FL 7.6 FL Neutrophils (%) (Auto) 75.9 % 84.1 % Lymphocytes (%) (Auto) 9.4 % 5.3 % Monocytes (%) (Auto) 13.5 % 10.0 % Eosinophils (%) (Auto) 0.7 % 0.4 % Basophils (%) (Auto) 0.5 % 0.2 % Neutrophils # (Auto) 5.1 TH/MM3 7.2 TH/MM3 Lymphocytes # (Auto) 0.6 TH/MM3 0.5 TH/MM3 Monocytes # (Auto) 0.9 TH/MM3 0.9 TH/MM3 Eosinophils # (Auto) 0.0 TH/MM3 0.0 TH/MM3 Basophils # (Auto) 0.0 TH/MM3 0.0 TH/MM3 CBC Comment DIFF FINAL DIFF FINAL Differential Comment Blood Urea Nitrogen 9 MG/DL 10 MG/DL Creatinine 0.72 MG/DL 0.62 MG/DL Random Glucose 81 MG/DL 86 MG/DL Calcium Level 8.1 MG/DL 8.2 MG/DL Magnesium Level 1.8 MG/DL 1.8 MG/DL Sodium Level 139 MEQ/L 142 MEQ/L Potassium Level 3.4 MEQ/L 3.8 MEQ/L Chloride Level 103 MEQ/L 108 MEQ/L Carbon Dioxide Level 25.0 MEQ/L 23.7 MEQ/L Anion Gap 11 MEQ/L 10 MEQ/L Estimat Glomerular Filtration Rate 85 ML/MIN 101 ML/MIN Imaging Last Impressions Abdomen X-Ray 03/26/17 0000 Signed Impressions: Service Date/Time: Friday, March 26, 2017 17:26 - CONCLUSION: Nasogastric tube coiled in the stomach, across the GE junction. Ethan Dubose MD FACR Objective Remarks General: NAD, AAOx3 ENT: NGT in right nare Chest: CTA Cardiac: Regular Abd: +BS, soft, mildly distended Ext: No edema A/P Problem List: (1) Small bowel obstruction ICD Codes: K56.609 - Unspecified intestinal obstruction, unspecified as to partial versus complete obstruction; J90 - Pleural effusion, not elsewhere classified; R18.8 - Other ascites Status: Acute Plan: Pt is a 51 y/o female with metastatic ovarian cancer on oral chemo with Zejula 200mg po daily and follows with Dr. Garcia. Pt reports that for the last week and a half she has been having issues with nausea/vomiting and constipation. She states that in the last 10 days she has had one BM which was 4 days ago and that was after using 2 enemas. She was also using MOM at home for constipation without relief. She has not been able to tolerate much oral intake and has been receiving IVF from her Oncologist, Dr. Garcia. Pt was in our IR department today getting a therapeutic paracentesis with removal of 1000mL of ascetic fluid. She told the radiologist about her nausea and vomiting and a CT Abd/ pelvis was ordered which revealed a distal SBO with transition point in the right lower quadrant and loculated ascites. Pt was sent to the ED for admission and surgical consultation. SBO with transition point in RLQ Nausea/vomiting Constipation - NGT placed in the ED - NGT to LIWS - NPO - General surgery consultation - IVF, gentle hydration given her ascites - Zofran PRN - Protonix 40mg IV Q12H - Supportive care - Monitor labs - Pt tolerating ice chips - Encouraged ambulation, ok to clamp NGT to ambulate every few hours - Appreciate consultation from General Surgery and Clean Room Operator/Onc. We will continue with conservative management with NGT to LIWS this weekend and if not progressing, then consider SBFT +/- surgical intervention Metastatic Ovarian Cancer, recurrent Recurrent malignant ascites - Pt follows with Dr. Garcia - She was previously treated with Taxol chemotherapy with initial reduction in her CA-125 and improvement in her measurable disease on the PET scan - Pt is currently taking Zejula 200mg po daily - She had paracentesis today with removal of 1000mL of ascitic fluid - This will be held while the pt is NPO - Dr. Garcia is following Elevated BP, reportedly secondary to chemo - Pt was recently started on Norvasc 5mg po BID, this will be held while pt is NPO - Vasotec PRN - Some elevation likely related to pain and anxiety - Pain meds PRN and Ativan PRN ordered GERD - PPI Hypothyroidism - Home meds to be resumed once tolerating po intake DVT prophylaxis with SCDs (2) Elevated BP without diagnosis of hypertension ICD Codes: R03.0 - Elevated blood-pressure reading, without diagnosis of hypertension Status: Chronic Plan: - See above (3) Ovarian cancer ICD Codes: C56.9 - Malignant neoplasm of unspecified ovary Status: Chronic Plan: - See above (4) Ascites ICD Codes: R18.8 - Ascites Status: Chronic Plan: - See above (5) Hypothyroid ICD Codes: E03.9 - Hypothyroidism Status: Chronic Plan: - See above Assessment and Plan Patient examined. Assessment and plan formulated with Jill Hill PA-C. I agree with the above. metastatic ovarian ca. sbo. flatus. no bm cont ngt. possible surgical intervention Friday ambulate. Problem Qualifiers (1) Ovarian cancer: Qualified Codes: C56.9 - Malignant neoplasm of unspecified ovary (2) Ascites: Qualified Codes: R18.0 - Malignant ascites Jill Hill Mar 28, 2017 09:40 Jeff Hamilton MD Mar 28, 2017 15:08
[2017-03-28] MEDS ORDERED: PHENOL 1.4% SOLN 180 ML BTL OROPHARYNG PRN (11:15)
[2017-03-28 12:00] VITALS: BP 132/88; PULSE 103; RESP 18; TEMP 97.1; O2SAT 96
[2017-03-28] MEDS: MORPHINE SULFATE 4 MG/ML INJ IV PUSH PRN (13:12)
--- NOTE | 2017-03-28 13:29 | HHI.PR ---
Subjective . no new c/o, no n/v, one episode of flatus, ambulating well Objective . afeb vss, K 3.8 NGT output 645 ml a&o x 3, bright spirits, NAD abdomen less distended/less taut in lower quadrants, distended/tense upper quadrants with tenderness RUQ minimal bowel sounds Assessment/Plan . CPM, GI rest NGT, IVF, ambulation ongoing evaluation over the next few days Consider small bowel followthrough gastrografin study if not resolved in a few days? I spoke with Drs. Hamilton & Gt. Grateful for excellent care Terri Garcia MD Mar 28, 2017 13:29
--- NOTE | 2017-03-28 14:27 | RADRPT ---
EXAM DATE/TIME: 03/28/2017 12:21 [facility] COMPARISON: US ABDOMEN - LOWER LIMITED, February 14, 2017, 13:03. INDICATIONS : Ascites. MEDICAL HISTORY : Ovarian cancer. Chemotherapy. Ascites. Hypothyroidism. Inflammatory bowel disease. Gastroparesis. SURGICAL HISTORY : Cholecystectomy Tubal ligation. Hysterectomy. Paracentesis. ENCOUNTER: [facility] ACUITY: 4-6 days PAIN SCORE: 0/10 LOCATION: Abdomen. AREA EVALUATED: Abdomen. FINDINGS: Imaging of the abdomen and pelvis was performed to evaluate for ascites for possible paracentesis. Sm all volume ascites is seen. Multiple dilated loops of bowel noted. Insufficient volume for safe parac entesis. CONCLUSION: Small blind ascites with insufficient volume for safe paracentesis. Dilated small bowel loops noted. Austin Mcallister Jr., MD on March 28, 2017 at 14:24 Board Certified Radiologist. This report was verified electronically.
[2017-03-28 16:00] VITALS: BP 162/87; PULSE 93; RESP 16; TEMP 97.9; O2SAT 98
[2017-03-28 20:00] VITALS: BP 151/93; PULSE 88; RESP 20; TEMP 98; O2SAT 98
[2017-03-28] MEDS: ZEJULA PO SCH (20:30)
[2017-03-28] MEDS: CITALOPRAM HYDROBROMIDE 20 MG TAB PO SCH (20:30)
[2017-03-28] MEDS: HYDROmorphone HCL PF 1 MG/ML VIAL IV PUSH PRN (22:05)
[2017-03-28] MEDS: LORazepam 2 MG/ML VIAL IV PUSH PRN (23:46)
[2017-03-29] VITALS: BP 155/88; PULSE 84; RESP 18; TEMP 97.9; O2SAT 99
[2017-03-29] MEDS: PANTOPRAZOLE SODIUM 40 MG VIAL IV PUSH SCH ×2 (04:46→17:07)
[2017-03-29 05:09] LABS: AUTOMATED NEUTROPHIL # 5.6 TH/MM3 (1.8-7.7); BASOPHIL % 0.3 % (0.0-2.0); EOSINOPHIL % 0.6 % (0.0-4.0); HEMATOCRIT 31.9 % (35.0-46.0); HEMO FLAGS DIFF FINAL; LYMPH % 9.4 % (9.0-44.0); LYMPHOCYTE # 0.7 TH/MM3 (1.0-4.8); MEAN CELL VOLUME 95.9 FL (80.0-100.0); MEAN CORPUSCULAR HGB CONC 32.3 % (32.0-36.0); MONO % 12.6 % (0.0-8.0); NEUT % 77.1 % (16.0-70.0); PLATELET COUNT 182 TH/MM3 (150-450); RED BLOOD COUNT 3.32 MIL/MM3 (4.00-5.30); RED CELL DISTRIBUTION WIDTH 21.3 % (11.6-17.2); WHITE BLOOD COUNT 7.3 TH/MM3 (4.0-11.0)
[2017-03-29 05:38] LABS: BICARBONATE 19.3 MEQ/L (21.0-32.0); MAGNESIUM 1.7 MG/DL (1.5-2.5); POTASSIUM 3.5 MEQ/L (3.5-5.1)
[2017-03-29 08:00] VITALS: BP 138/91; PULSE 90; RESP 19; TEMP 99.4; O2SAT 98
--- NOTE | 2017-03-29 11:00 | HHI.PR ---
Subjective Subjective Notes The patient states that she has passed a small amount of flatus. She also had a small bowel movement early this morning. Her abdominal pain is much improved. Objective Vitals/I&O Vital Signs Date Time Temp Pulse Resp B/P (MAP) Pulse Ox O2 Delivery O2 Flow Rate FiO2 03/29/17 08:00 99.4 90 19 138/91 (107) 98 03/26/17 19:24 Room Air Labs Laboratory Tests Test 03/29/17 05:00 White Blood Count 7.3 Red Blood Count 3.32 Hemoglobin 10.3 Hematocrit 31.9 Mean Corpuscular Volume 95.9 Mean Corpuscular Hemoglobin 31.0 Mean Corpuscular Hemoglobin Concent 32.3 Red Cell Distribution Width 21.3 Platelet Count 182 Mean Platelet Volume 7.2 Neutrophils (%) (Auto) 77.1 Lymphocytes (%) (Auto) 9.4 Monocytes (%) (Auto) 12.6 Eosinophils (%) (Auto) 0.6 Basophils (%) (Auto) 0.3 Neutrophils # (Auto) 5.6 Lymphocytes # (Auto) 0.7 Monocytes # (Auto) 0.9 Eosinophils # (Auto) 0.0 Basophils # (Auto) 0.0 CBC Comment DIFF FINAL Differential Comment Blood Urea Nitrogen 7 Creatinine 0.56 Random Glucose 76 Calcium Level 8.1 Magnesium Level 1.7 Sodium Level 141 Potassium Level 3.5 Chloride Level 108 Carbon Dioxide Level 19.3 Anion Gap 14 Estimat Glomerular Filtration Rate 113 Cardiovascular: Regular Lungs: Clear Extremities: No edema Narrative Exam Her abdomen is distended and somewhat tight, but it is soft and virtually nontender. There is no guarding or rebound. A/P Assessment and Plan Impression: Metastatic ovarian carcinoma with small bowel obstruction. She has partial resolution. There is no evidence of acute surgical process. Plan: I will keep the NG tube in for now and have placed her on a clear liquid diet. Laboratory and x-rays are ordered for the morning. Juwan Asencio MD Mar 29, 2017 11:00
[2017-03-29 12:00] VITALS: BP 150/95; PULSE 101; RESP 19; TEMP 97.7; O2SAT 99
--- NOTE | 2017-03-29 12:23 | HHI.PR ---
Subjective Remarks Pt passed some flatus and had a small BM last night Diet advanced to clear liquids this morning. Objective Vitals Vital Signs Date Time Temp Pulse Resp B/P (MAP) Pulse Ox O2 Delivery O2 Flow Rate FiO2 03/29/17 12:00 97.7 101 19 150/95 (113) 99 03/29/17 08:00 99.4 90 19 138/91 (107) 98 03/29/17 00:00 97.9 84 18 155/88 (110) 99 03/28/17 20:00 98.0 88 20 151/93 (112) 98 03/28/17 16:00 97.9 93 16 162/87 (112) 98 03/28/17 13:17 16 03/29/17 03/29/17 03/30/17 15:00 23:00 07:00 # Bowel Movements 1 Result Diagram: 03/29/17 0500 03/29/17 0500 Other Results Laboratory Tests Test 03/28/17 06:10 03/29/17 05:00 White Blood Count 8.5 TH/MM3 7.3 TH/MM3 Red Blood Count 3.34 MIL/MM3 3.32 MIL/MM3 Hemoglobin 10.5 GM/DL 10.3 GM/DL Hematocrit 32.0 % 31.9 % Mean Corpuscular Volume 95.7 FL 95.9 FL Mean Corpuscular Hemoglobin 31.5 PG 31.0 PG Mean Corpuscular Hemoglobin Concent 32.9 % 32.3 % Red Cell Distribution Width 21.2 % 21.3 % Platelet Count 186 TH/MM3 182 TH/MM3 Mean Platelet Volume 7.6 FL 7.2 FL Neutrophils (%) (Auto) 84.1 % 77.1 % Lymphocytes (%) (Auto) 5.3 % 9.4 % Monocytes (%) (Auto) 10.0 % 12.6 % Eosinophils (%) (Auto) 0.4 % 0.6 % Basophils (%) (Auto) 0.2 % 0.3 % Neutrophils # (Auto) 7.2 TH/MM3 5.6 TH/MM3 Lymphocytes # (Auto) 0.5 TH/MM3 0.7 TH/MM3 Monocytes # (Auto) 0.9 TH/MM3 0.9 TH/MM3 Eosinophils # (Auto) 0.0 TH/MM3 0.0 TH/MM3 Basophils # (Auto) 0.0 TH/MM3 0.0 TH/MM3 CBC Comment DIFF FINAL DIFF FINAL Differential Comment Blood Urea Nitrogen 10 MG/DL 7 MG/DL Creatinine 0.62 MG/DL 0.56 MG/DL Random Glucose 86 MG/DL 76 MG/DL Calcium Level 8.2 MG/DL 8.1 MG/DL Magnesium Level 1.8 MG/DL 1.7 MG/DL Sodium Level 142 MEQ/L 141 MEQ/L Potassium Level 3.8 MEQ/L 3.5 MEQ/L Chloride Level 108 MEQ/L 108 MEQ/L Carbon Dioxide Level 23.7 MEQ/L 19.3 MEQ/L Anion Gap 10 MEQ/L 14 MEQ/L Estimat Glomerular Filtration Rate 101 ML/MIN 113 ML/MIN Imaging Last Impressions Abdomen X-Ray 03/26/17 0000 Signed Impressions: Service Date/Time: Friday, March 26, 2017 17:26 - CONCLUSION: Nasogastric tube coiled in the stomach, across the GE junction. Ethan Dubose MD FACR Objective Remarks General: NAD, AAOx3 ENT: NGT in right nare Chest: CTA Cardiac: Regular Abd: +BS, soft, mildly distended Ext: No edema A/P Problem List: (1) Small bowel obstruction ICD Codes: K56.609 - Unspecified intestinal obstruction, unspecified as to partial versus complete obstruction; J90 - Pleural effusion, not elsewhere classified; R18.8 - Other ascites Status: Acute Plan: Pt is a 51 y/o female with metastatic ovarian cancer on oral chemo with Zejula 200mg po daily and follows with Dr. Garcia. Pt reports that for the last week and a half she has been having issues with nausea/vomiting and constipation. She states that in the last 10 days she has had one BM which was 4 days ago and that was after using 2 enemas. She was also using MOM at home for constipation without relief. She has not been able to tolerate much oral intake and has been receiving IVF from her Oncologist, Dr. Garcia. Pt was in our IR department today getting a therapeutic paracentesis with removal of 1000mL of ascetic fluid. She told the radiologist about her nausea and vomiting and a CT Abd/ pelvis was ordered which revealed a distal SBO with transition point in the right lower quadrant and loculated ascites. Pt was sent to the ED for admission and surgical consultation. SBO with transition point in RLQ Nausea/vomiting Constipation - NGT placed in the ED - NGT to LIWS - General surgery following. - IVF rate decreased on 03/28 as pt felt her abdomen was filling up with fluid again. US guided paracentesis was ordered but not enough fluid for drainage. - Pt had +flatus and small BM last night. - NGT clamped and diet advanced to clear liquids per GS - Once tolerating liquids will stop IVF - Zofran PRN - Protonix 40mg IV Q12H - Supportive care - Monitor labs - Encouraged ambulation - Appreciate consultation from General Surgery and Corn Lab Technician/Onc. We will continue with conservative management and monitor for continued progression. - KUB in AM Metastatic Ovarian Cancer, recurrent Recurrent malignant ascites - Pt follows with Dr. Garcia - She was previously treated with Taxol chemotherapy with initial reduction in her CA-125 and improvement in her measurable disease on the PET scan - Pt is currently taking Zejula 200mg po daily - She had paracentesis today with removal of 1000mL of ascitic fluid - This will be held while the pt is NPO - Dr. Garcia is following Elevated BP, reportedly secondary to chemo - Pt was recently started on Norvasc 5mg po BID, this will be held while pt is NPO - Vasotec PRN - Some elevation likely related to pain and anxiety - Pain meds PRN and Ativan PRN ordered GERD - PPI Hypothyroidism - Home meds to be resumed once tolerating po intake DVT prophylaxis with SCDs (2) Elevated BP without diagnosis of hypertension ICD Codes: R03.0 - Elevated blood-pressure reading, without diagnosis of hypertension Status: Chronic Plan: - See above (3) Ovarian cancer ICD Codes: C56.9 - Malignant neoplasm of unspecified ovary Status: Chronic Plan: - See above (4) Ascites ICD Codes: R18.8 - Ascites Status: Chronic Plan: - See above (5) Hypothyroid ICD Codes: E03.9 - Hypothyroidism Status: Chronic Plan: - See above Assessment and Plan Patient examined. Assessment and plan formulated with Jill Hill PA-C. I agree with the above. Problem Qualifiers (1) Ovarian cancer: Qualified Codes: C56.9 - Malignant neoplasm of unspecified ovary (2) Ascites: Qualified Codes: R18.0 - Malignant ascites Jill Hill Mar 29, 2017 12:23 Miguel Domingo DO Mar 30, 2017 16:38
[2017-03-29] MEDS: HYDROmorphone HCL PF 1 MG/ML VIAL IV PUSH PRN ×2 (12:44→22:46)
[2017-03-29] MEDS: LORazepam 2 MG/ML VIAL IV PUSH PRN ×2 (13:48→22:52)
[2017-03-29 16:00] VITALS: BP 143/83; PULSE 93; RESP 18; TEMP 98.2; O2SAT 96
[2017-03-29 20:00] VITALS: BP 139/93; PULSE 95; RESP 20; TEMP 97.6; O2SAT 99
[2017-03-29] MEDS: CITALOPRAM HYDROBROMIDE 20 MG TAB PO SCH (20:58)
[2017-03-29] MEDS: ZEJULA PO SCH (21:00)
[2017-03-29] MEDS: NS + KCL 20 MEQ INJ 1,000 ML IV SCH (21:03)
[2017-03-29] MEDS: ONDANSETRON HCL 4 MG/2 ML VIAL IV PRN (22:52)
[2017-03-30] VITALS: BP 140/88; PULSE 92; RESP 20; TEMP 98.6; O2SAT 98
[2017-03-30] MEDS: PANTOPRAZOLE SODIUM 40 MG VIAL IV PUSH SCH ×2 (05:05→16:18)
[2017-03-30 05:26] LABS: BASOPHIL % 0.3 % (0.0-2.0); EOSINOPHIL % 0.4 % (0.0-4.0); HEMO FLAGS DIFF FINAL; LYMPH % 10.5 % (9.0-44.0); LYMPHOCYTE # 0.7 TH/MM3 (1.0-4.8); MEAN CELL VOLUME 94.6 FL (80.0-100.0); MEAN CORPUSCULAR HEMOGLOBIN 31.3 PG (27.0-34.0); MEAN CORPUSCULAR HGB CONC 33.1 % (32.0-36.0); MONO % 12.8 % (0.0-8.0); PLATELET COUNT 185 TH/MM3 (150-450); RED BLOOD COUNT 3.27 MIL/MM3 (4.00-5.30); RED CELL DISTRIBUTION WIDTH 20.9 % (11.6-17.2); WHITE BLOOD COUNT 6.6 TH/MM3 (4.0-11.0)
[2017-03-30 05:48] LABS: BICARBONATE 22.5 MEQ/L (21.0-32.0); POTASSIUM 3.4 MEQ/L (3.5-5.1)
[2017-03-30 08:00] VITALS: BP 142/94; PULSE 96; RESP 19; TEMP 95.8; O2SAT 97
--- NOTE | 2017-03-30 09:34 | RADRPT ---
EXAM DATE/TIME: 03/30/2017 09:15 [facility] COMPARISON: ABDOMEN SINGLE VIEW, March 26, 2017, 17:26. INDICATIONS : Small bowel obstruction, complains of pain. MEDICAL HISTORY : Carcinoma, gastric. SURGICAL HISTORY : None. ENCOUNTER: Initial ACUITY: 1 month PAIN SCORE: 6/10 LOCATION: Abdomen FINDINGS: Supine and upright views of the abdomen were performed. Multiple dilated small bowel loops. Nasogastr ic tube again seen with tip in stomach. Several air fluid levels are seen. No abnormal masses, calci fications, or organomegaly is seen. Surgical clips right upper quadrant. The visualized lower lungs are clear. No evidence of free intraperitoneal gas. The osseous structures are unremarkable. CONCLUSION: 1. Dilated small bowel loops again noted which can be seen with ileus versus obstruction. 2. Status post cholecystectomy. Mahamed Antunez MD on March 30, 2017 at 9:30 Board Certified Radiologist. This report was verified electronically.
[2017-03-30] MEDS: NS + KCL 20 MEQ INJ 1,000 ML IV SCH (09:40)
[2017-03-30] MEDS: HYDROmorphone HCL PF 1 MG/ML VIAL IV PUSH PRN ×4 (10:35→22:58)
[2017-03-30] MEDS: ONDANSETRON HCL 4 MG/2 ML VIAL IV PRN ×2 (10:36→22:51)
[2017-03-30 12:00] VITALS: BP 137/94; PULSE 89; RESP 19; TEMP 96.9; O2SAT 98
--- NOTE | 2017-03-30 13:15 | HHI.PR ---
Subjective Subjective Notes She feels no better today than yesterday. She continues to pass flatus but has not had much more than a very small bowel movement. The nasogastric tube was been left open dissection, yet she has significant pain when she takes anything orally from the clear liquid diet. She continues to have pain in the left side of her abdomen. Objective Vitals/I&O Vital Signs Date Time Temp Pulse Resp B/P (MAP) Pulse Ox O2 Delivery O2 Flow Rate FiO2 03/30/17 12:00 96.9 89 19 137/94 (108) 98 03/26/17 19:24 Room Air Labs Laboratory Tests Test 03/30/17 05:13 White Blood Count 6.6 Red Blood Count 3.27 Hemoglobin 10.3 Hematocrit 31.0 Mean Corpuscular Volume 94.6 Mean Corpuscular Hemoglobin 31.3 Mean Corpuscular Hemoglobin Concent 33.1 Red Cell Distribution Width 20.9 Platelet Count 185 Mean Platelet Volume 7.0 Neutrophils (%) (Auto) 76.0 Lymphocytes (%) (Auto) 10.5 Monocytes (%) (Auto) 12.8 Eosinophils (%) (Auto) 0.4 Basophils (%) (Auto) 0.3 Neutrophils # (Auto) 5.0 Lymphocytes # (Auto) 0.7 Monocytes # (Auto) 0.8 Eosinophils # (Auto) 0.0 Basophils # (Auto) 0.0 CBC Comment DIFF FINAL Differential Comment Blood Urea Nitrogen 7 Creatinine 0.56 Random Glucose 87 Calcium Level 8.0 Sodium Level 141 Potassium Level 3.4 Chloride Level 108 Carbon Dioxide Level 22.5 Anion Gap 11 Estimat Glomerular Filtration Rate 113 Cardiovascular: Regular Lungs: Clear Extremities: No edema Narrative Exam Abdominal exam still shows the abdomen to be tight, although remained soft to palpation. She remains quite distended and nontender consistent with her known intraperitoneal carcinomatosis. She has no significant isolated tenderness, guarding, or rebound. A/P Assessment and Plan Impression: Metastatic ovarian carcinoma with partial small bowel obstruction. Her plain flat and upright abdominal films are essentially unchanged, showing at least a partial obstruction with dilated loops of small bowel with air-fluid levels. She does not have evidence of an acute surgical process at this moment. Plan: I have ordered a Gastrografin small bowel follow-through to hopefully be at least partially therapeutic as well as hopefully diagnostic. I'm not sure she will be able to tolerate much in the way of volume for this study. Juwan Asencio MD Mar 30, 2017 13:15
--- NOTE | 2017-03-30 14:15 | HHI.PR ---
Subjective Remarks Pt had significant pain yesterday after she started on clear liquid diet The NGT has been left to LIWS Pt is passing gas and has had a small BM She is still having pain today with any attempt at oral intake Objective Vitals Vital Signs Date Time Temp Pulse Resp B/P (MAP) Pulse Ox O2 Delivery O2 Flow Rate FiO2 03/30/17 12:00 96.9 89 19 137/94 (108) 98 03/30/17 08:00 95.8 96 19 142/94 (110) 97 03/30/17 00:00 98.6 92 20 140/88 (105) 98 03/29/17 20:00 97.6 95 20 139/93 (108) 99 03/29/17 16:00 98.2 93 18 143/83 (103) 96 Result Diagram: 03/30/1713 03/30/17512 Other Results Laboratory Tests Test 03/29/17 05:00 03/30/17 05:13 White Blood Count 7.3 TH/MM3 6.6 TH/MM3 Red Blood Count 3.32 MIL/MM3 3.27 MIL/MM3 Hemoglobin 10.3 GM/DL 10.3 GM/DL Hematocrit 31.9 % 31.0 % Mean Corpuscular Volume 95.9 FL 94.6 FL Mean Corpuscular Hemoglobin 31.0 PG 31.3 PG Mean Corpuscular Hemoglobin Concent 32.3 % 33.1 % Red Cell Distribution Width 21.3 % 20.9 % Platelet Count 182 TH/MM3 185 TH/MM3 Mean Platelet Volume 7.2 FL 7.0 FL Neutrophils (%) (Auto) 77.1 % 76.0 % Lymphocytes (%) (Auto) 9.4 % 10.5 % Monocytes (%) (Auto) 12.6 % 12.8 % Eosinophils (%) (Auto) 0.6 % 0.4 % Basophils (%) (Auto) 0.3 % 0.3 % Neutrophils # (Auto) 5.6 TH/MM3 5.0 TH/MM3 Lymphocytes # (Auto) 0.7 TH/MM3 0.7 TH/MM3 Monocytes # (Auto) 0.9 TH/MM3 0.8 TH/MM3 Eosinophils # (Auto) 0.0 TH/MM3 0.0 TH/MM3 Basophils # (Auto) 0.0 TH/MM3 0.0 TH/MM3 CBC Comment DIFF FINAL DIFF FINAL Differential Comment Blood Urea Nitrogen 7 MG/DL 7 MG/DL Creatinine 0.56 MG/DL 0.56 MG/DL Random Glucose 76 MG/DL 87 MG/DL Calcium Level 8.1 MG/DL 8.0 MG/DL Magnesium Level 1.7 MG/DL Sodium Level 141 MEQ/L 141 MEQ/L Potassium Level 3.5 MEQ/L 3.4 MEQ/L Chloride Level 108 MEQ/L 108 MEQ/L Carbon Dioxide Level 19.3 MEQ/L 22.5 MEQ/L Anion Gap 14 MEQ/L 11 MEQ/L Estimat Glomerular Filtration Rate 113 ML/MIN 113 ML/MIN Imaging Last Impressions Abdomen X-Ray 03/26/17 0000 Signed Impressions: Service Date/Time: Sunday, March 26, 2017 17:26 - CONCLUSION: Nasogastric tube coiled in the stomach, across the GE junction. Ethan Dubose MD FACR Objective Remarks General: NAD, AAOx3 ENT: NGT in right nare Chest: CTA Cardiac: Regular Abd: +BS, soft, mildly distended Ext: No edema A/P Problem List: (1) Small bowel obstruction ICD Codes: K56.609 - Unspecified intestinal obstruction, unspecified as to partial versus complete obstruction; J90 - Pleural effusion, not elsewhere classified; R18.8 - Other ascites Status: Acute Plan: Pt is a 51 y/o female with metastatic ovarian cancer on oral chemo with Zejula 200mg po daily and follows with Dr. Garcia. Pt reports that for the last week and a half she has been having issues with nausea/vomiting and constipation. She states that in the last 10 days she has had one BM which was 4 days ago and that was after using 2 enemas. She was also using MOM at home for constipation without relief. She has not been able to tolerate much oral intake and has been receiving IVF from her Oncologist, Dr. Garcia. Pt was in our IR department today getting a therapeutic paracentesis with removal of 1000mL of ascetic fluid. She told the radiologist about her nausea and vomiting and a CT Abd/ pelvis was ordered which revealed a distal SBO with transition point in the right lower quadrant and loculated ascites. Pt was sent to the ED for admission and surgical consultation. SBO with transition point in RLQ Nausea/vomiting Constipation - NGT placed in the ED - NGT to LIWS - General surgery following. - IVF rate decreased on 03/28 as pt felt her abdomen was filling up with fluid again. US guided paracentesis was ordered but not enough fluid for drainage. - Pt had +flatus and small BM but has been unable to tolerate clear liquid diet withotu significant pain - Zofran PRN - Protonix 40mg IV Q12H - Supportive care - Monitor labs - Encouraged ambulation - Appreciate consultation from General Surgery and Gaming Investigator/Onc. We will continue with conservative management and monitor for continued progression. - KUB (03/30) --> Dilated small bowel loops again noted which can be seen with ileus vs. obstruction. s/p cholecystectomy - Pt to get a Gastrografin SBFT today Metastatic Ovarian Cancer, recurrent Recurrent malignant ascites - Pt follows with Dr. Garcia - She was previously treated with Taxol chemotherapy with initial reduction in her CA-125 and improvement in her measurable disease on the PET scan - Pt is currently taking Zejula 200mg po daily - She had paracentesis on the day of admission with removal of 1000mL of ascitic fluid - This will be held while the pt is NPO - Dr. Garcia is following Elevated BP, reportedly secondary to chemo - Pt was recently started on Norvasc 5mg po BID, this will be held while pt is NPO - Vasotec PRN - Some elevation likely related to pain and anxiety - Pain meds PRN and Ativan PRN ordered GERD - PPI Hypothyroidism - Home meds to be resumed once tolerating po intake DVT prophylaxis with Lovenox (2) Elevated BP without diagnosis of hypertension ICD Codes: R03.0 - Elevated blood-pressure reading, without diagnosis of hypertension Status: Chronic Plan: - See above (3) Ovarian cancer ICD Codes: C56.9 - Malignant neoplasm of unspecified ovary Status: Chronic Plan: - See above (4) Ascites ICD Codes: R18.8 - Ascites Status: Chronic Plan: - See above (5) Hypothyroid ICD Codes: E03.9 - Hypothyroidism Status: Chronic Plan: - See above Assessment and Plan Patient examined. Assessment and plan formulated with Jill Hill PA-C. Pt undergoing SBFT with gastrograffin Pt painful with study Await final results reconnect NGT to suction as soon as possible will d/w with Surgery Problem Qualifiers (1) Ovarian cancer: Qualified Codes: C56.9 - Malignant neoplasm of unspecified ovary (2) Ascites: Qualified Codes: R18.0 - Malignant ascites Jill Hill Mar 30, 2017 14:15 Miguel Domingo DO Mar 30, 2017 16:40
[2017-03-30] MEDS ORDERED: BENZOCAINE-MENTHOL (SUGAR FREE) 15 MG-3.6 MG LOZENGE BUCCAL PRN (15:15)
[2017-03-30 16:00] VITALS: BP 146/94; PULSE 96; RESP 19; TEMP 97.2; O2SAT 98
[2017-03-30] MEDS: LORazepam 2 MG/ML VIAL IV PUSH PRN ×2 (16:18→22:53)
[2017-03-30] MEDS ORDERED: HYDROmorphone HCL PF 1 MG/ML VIAL IV PUSH ONE (16:30)
[2017-03-30] MEDS: ENOXAPARIN SODIUM 30 MG/0.3 ML SYRINGE SQ SCH (16:33)
[2017-03-30] MEDS ORDERED: DIATRIZOATE MEGLUM/DIATRIZOATE SOD 120 ML BTL (for RAD DIAG) NG ONE (17:52)
[2017-03-30 20:00] VITALS: BP 136/91; PULSE 100; RESP 18; TEMP 97.5; O2SAT 97
[2017-03-30] MEDS: CITALOPRAM HYDROBROMIDE 20 MG TAB PO SCH (21:02)
[2017-03-30] MEDS: ZEJULA PO SCH (21:03)
--- NOTE | 2017-03-30 22:53 | RADRPT ---
EXAM DATE/TIME: 03/30/2017 14:21 [facility] COMPARISON: CT ABDOMEN & PELVIS W CONTRAST, March 26, 2017, 13:41. ABDOMEN SINGLE VIEW, March 26, 2017, 17 :26. INDICATIONS : Small bowel obstruction, pain FLUORO TIME: 0.12 minutes IMAGE COUNT: 15 CONTRAST: MD Alonso IMAGING TIME(S): 15 min, 30 min, 1.5 hrs, 3 hr, 5 hrs,7 hr MEDICAL HISTORY : Carcinoma, gastric. SURGICAL HISTORY : None. ENCOUNTER: Initial ACUITY: 1 month PAIN SCORE: 10/10 LOCATION: Abdomen FINDINGS: The initial hot water heater installer radiograph shows markedly distended loops of small bowel essentially throughout the abdomen. There is a nasogastric tube with tip in the duodenum. Small bowel transit time is markedly delayed at approximately 7 hours. Some contrast does eventually pass into the cecum. There is a transition point from distended to decompressed small bowel in the ri ght side of the pelvic cavity. This is at the level of the distal ileum and on the CT appears to be o n the basis of adhesions or minimally masslike peritoneal carcinomatosis. No large masses are demonst rated.. CONCLUSION: High-grade small bowel obstruction at the level of the distal ileum. Transition is in the right side of the pelvic cavity. Andres Natarajan MD on March 30, 2017 at 22:47 Board Certified Radiologist. This report was verified electronically.
[2017-03-31 00:34] VITALS: BP 125/81; PULSE 98; RESP 18; TEMP 96.8; O2SAT 99
[2017-03-31] MEDS: PANTOPRAZOLE SODIUM 40 MG VIAL IV PUSH SCH ×2 (04:42→16:01)
[2017-03-31] MEDS: NS + KCL 20 MEQ INJ 1,000 ML IV SCH (04:42)
[2017-03-31 05:06] LABS: AUTOMATED NEUTROPHIL # 5.8 TH/MM3 (1.8-7.7); BASOPHIL % 0.4 % (0.0-2.0); EOSINOPHIL % 0.2 % (0.0-4.0); HEMO FLAGS DIFF FINAL; LYMPH % 9.5 % (9.0-44.0); LYMPHOCYTE # 0.7 TH/MM3 (1.0-4.8); MEAN CELL VOLUME 94.8 FL (80.0-100.0); MEAN CORPUSCULAR HEMOGLOBIN 31.5 PG (27.0-34.0); MEAN CORPUSCULAR HGB CONC 33.3 % (32.0-36.0); MONO % 12.9 % (0.0-8.0); PLATELET COUNT 186 TH/MM3 (150-450); RED BLOOD COUNT 3.48 MIL/MM3 (4.00-5.30); RED CELL DISTRIBUTION WIDTH 21.1 % (11.6-17.2); WHITE BLOOD COUNT 7.5 TH/MM3 (4.0-11.0)
[2017-03-31 05:26] LABS: BICARBONATE 28.4 MEQ/L (21.0-32.0); MAGNESIUM 1.8 MG/DL (1.5-2.5); POTASSIUM 3.4 MEQ/L (3.5-5.1)
[2017-03-31] MEDS: ONDANSETRON HCL 4 MG/2 ML VIAL IV PRN ×3 (07:02→19:59)
[2017-03-31] MEDS: HYDROmorphone HCL PF 1 MG/ML VIAL IV PUSH PRN ×3 (07:05→20:00)
[2017-03-31 08:00] VITALS: BP 142/93; PULSE 90; RESP 18; TEMP 96.9; O2SAT 99
--- NOTE | 2017-03-31 09:46 | PD.ONC.PN ---
Subjective Subjective Remarks patient awake and alert resting in bed states pain is controlled at this time if she gets up and ambulates she has increased pain she tried to have clear liquids yesterday and has N/V with increased abdominal pain she tells me that she did better last night with intake, she did not take in as much fluids and she denies n/v but it still caused her abdominal pain she is anxious to hear what Dr. Asencio thinks and recommends from small bowel follow through Objective Data Date Time Temp Pulse Resp B/P (MAP) Pulse Ox O2 Delivery O2 Flow Rate FiO2 03/31/17 08:00 96.9 90 18 142/93 (109) 99 03/31/17 00:34 96.8 98 18 125/81 (96) 99 03/30/17 20:00 97.5 100 18 136/91 (106) 97 03/30/17 16:00 97.2 96 19 146/94 (111) 98 03/30/17 12:00 96.9 89 19 137/94 (108) 98 03/31/17 03/31/17 03/31/17 07:00 15:00 23:00 Intake Total 635 ml Output Total 1400 ml Balance -765 ml Result Diagram: 03/31/17 0450 03/31/17 0450 Laboratory Results Laboratory Tests Test 03/31/17 04:50 White Blood Count 7.5 TH/MM3 Red Blood Count 3.48 MIL/MM3 Hemoglobin 11.0 GM/DL Hematocrit 33.0 % Mean Corpuscular Volume 94.8 FL Mean Corpuscular Hemoglobin 31.5 PG Mean Corpuscular Hemoglobin Concent 33.3 % Red Cell Distribution Width 21.1 % Platelet Count 186 TH/MM3 Mean Platelet Volume 7.2 FL Neutrophils (%) (Auto) 77.0 % Lymphocytes (%) (Auto) 9.5 % Monocytes (%) (Auto) 12.9 % Eosinophils (%) (Auto) 0.2 % Basophils (%) (Auto) 0.4 % Neutrophils # (Auto) 5.8 TH/MM3 Lymphocytes # (Auto) 0.7 TH/MM3 Monocytes # (Auto) 1.0 TH/MM3 Eosinophils # (Auto) 0.0 TH/MM3 Basophils # (Auto) 0.0 TH/MM3 CBC Comment DIFF FINAL Differential Comment Blood Urea Nitrogen 7 MG/DL Creatinine 0.64 MG/DL Random Glucose 134 MG/DL Calcium Level 8.6 MG/DL Magnesium Level 1.8 MG/DL Sodium Level 143 MEQ/L Potassium Level 3.4 MEQ/L Chloride Level 107 MEQ/L Carbon Dioxide Level 28.4 MEQ/L Anion Gap 8 MEQ/L Estimat Glomerular Filtration Rate 97 ML/MIN Imaging Studies Last 72 hours Impressions Abdomen X-Ray 03/30/17 0800 Signed Impressions: Service Date/Time: Thursday, March 30, 2017 09:15 - CONCLUSION: 1. Dilated small bowel loops again noted which can be seen with ileus versus obstruction. 2. Status post cholecystectomy. Mahamed Antunez MD Small Bowel X-Ray 03/30/17 0000 Signed Impressions: Service Date/Time: Thursday, March 30, 2017 14:21 - CONCLUSION: High-grade small bowel obstruction at the level of the distal ileum. Transition is in the right side of the pelvic cavity. Andres Natarajan MD Administered Medications Medications (Trade) Dose Ordered Sig/Andrew Route PRN Reason Start Time Stop Time Status Last Admin Dose Admin Sodium Chloride (NS Flush) 2 ml UNSCH PRN IV FLUSH FLUSH AFTER USING IV ACCESS 03/26/17 16:15 03/27/17 17:28 Potassium Chloride/Sodium Chloride 1,000 ml @ 50 mls/hr Q20H IV 03/26/17 17:00 03/29/17 21:03 Pantoprazole Sodium (Protonix Inj) 40 mg Q12H IV PUSH 03/26/17 17:00 03/31/17 04:42 Ondansetron HCl (Zofran Inj) 4 mg Q6H PRN IV nausea 03/26/17 17:00 03/31/17 07:02 Citalopram Hydrobromide (CeleXA) 10 mg HS PO 03/26/17 22:00 03/30/17 21:02 Patient Own Medication ZEJULA (NIRAPARIB) 100MG CAPS... HS PO 03/27/17 21:00 03/30/17 21:03 Lorazepam (Ativan Inj) 0.5 mg Q6H PRN IV PUSH anxiety, insomnia 03/28/17 09:45 03/30/17 22:53 Phenol (Chloraseptic Raymond) 2 spray Q2H PRN OROPHARYNG throat pain 03/28/17 11:15 03/28/17 19:22 Hydromorphone HCl (Dilaudid Pf Inj) 1 mg Q4H PRN IV PUSH pain 2-10 03/28/17 16:45 03/31/17 07:05 Enoxaparin Sodium (Lovenox Inj) 30 mg Q24H SQ 03/30/17 16:00 03/30/17 16:33 Objective Remarks GENERAL: Well-nourished, well-developed patient. NG tube to LIWS SKIN: Warm and dry. HEAD: Normocephalic. EYES: No scleral icterus. No injection or drainage. CARDIOVASCULAR: Regular rate and rhythm without murmurs. RESPIRATORY: Breath sounds equal bilaterally. No accessory muscle use. GASTROINTESTINAL: Abdomen firm with hyperactive BS EXTREMITIES: No cyanosis, or edema. MUSCULOSKELETAL: Adequate muscle tone. NEUROLOGICAL: No obvious focal deficit. Awake, alert, and oriented x3. PSYCHIATRIC: Appropriate mood and affect; insight and judgment normal. Assessment/Plan Problem List: (1) Small bowel obstruction ICD Codes: K56.609 - Unspecified intestinal obstruction, unspecified as to partial versus complete obstruction; J90 - Pleural effusion, not elsewhere classified; R18.8 - Other ascites Status: Acute Plan: General surgery: Dr. Asencio following small bowel follow through completed showing high grade obstruction no mass..possible implants vs. scar tissue causing obstruction NG to LIWS pt is NPO (2) Ovarian cancer ICD Codes: C56.9 - Malignant neoplasm of unspecified ovary Status: Chronic Plan: currently on oral Zejula continued treatment depends on hospital course Problem Qualifiers (1) Ovarian cancer: Qualified Codes: C56.9 - Malignant neoplasm of unspecified ovary Davidson Peoples Mar 31, 2017 09:46
[2017-03-31 12:00] VITALS: BP 144/87; PULSE 91; RESP 17; TEMP 97.1; O2SAT 98
--- NOTE | 2017-03-31 13:28 | HHI.PR ---
Subjective Subjective Notes 600+ out from NGT Abdomen still distended but pain improving Passing a lot of flatus, had a small BM Objective Vitals/I&O Vital Signs Date Time Temp Pulse Resp B/P (MAP) Pulse Ox O2 Delivery O2 Flow Rate FiO2 03/31/17 12:00 97.1 91 17 144/87 (106) 98 Labs Laboratory Tests Test 03/31/17 04:50 White Blood Count 7.5 Red Blood Count 3.48 Hemoglobin 11.0 Hematocrit 33.0 Mean Corpuscular Volume 94.8 Mean Corpuscular Hemoglobin 31.5 Mean Corpuscular Hemoglobin Concent 33.3 Red Cell Distribution Width 21.1 Platelet Count 186 Mean Platelet Volume 7.2 Neutrophils (%) (Auto) 77.0 Lymphocytes (%) (Auto) 9.5 Monocytes (%) (Auto) 12.9 Eosinophils (%) (Auto) 0.2 Basophils (%) (Auto) 0.4 Neutrophils # (Auto) 5.8 Lymphocytes # (Auto) 0.7 Monocytes # (Auto) 1.0 Eosinophils # (Auto) 0.0 Basophils # (Auto) 0.0 CBC Comment DIFF FINAL Differential Comment Blood Urea Nitrogen 7 Creatinine 0.64 Random Glucose 134 Calcium Level 8.6 Magnesium Level 1.8 Sodium Level 143 Potassium Level 3.4 Chloride Level 107 Carbon Dioxide Level 28.4 Anion Gap 8 Estimat Glomerular Filtration Rate 97 Radiology Last Impressions Abdomen X-Ray 03/30/17 0800 Signed Impressions: Service Date/Time: Thursday, March 30, 2017 09:15 - CONCLUSION: 1. Dilated small bowel loops again noted which can be seen with ileus versus obstruction. 2. Status post cholecystectomy. Mahamed Antunez MD Small Bowel X-Ray 03/30/17 0000 Signed Impressions: Service Date/Time: Thursday, March 30, 2017 14:21 - CONCLUSION: High-grade small bowel obstruction at the level of the distal ileum. Transition is in the right side of the pelvic cavity. Andres Natarajan MD Abdomen Ultrasound 03/28/17 0000 Signed Impressions: Service Date/Time: Tuesday, March 28, 2017 12:21 - CONCLUSION: Small blind ascites with insufficient volume for safe paracentesis. Dilated small bowel loops noted. Austin Mcallister Jr., MD Abdomen: Other (distended with mild tenderness to palpation) Extremities: Perfused A/P Assessment and Plan 51yo F with Metastatic ovarian carcinoma with partial small bowel obstruction. -Ok for clears today, NPO MN for sx in the morning -Plan is for laparoscopy possible laparotomy in AM Kyle Pelaez [facility] Mar 31, 2017 13:28
[2017-03-31] MEDS: LORazepam 2 MG/ML VIAL IV PUSH PRN ×2 (13:56→19:59)
--- NOTE | 2017-03-31 13:58 | HHI.PR ---
Subjective Remarks Pt reports that she has had some minimal flatus Abd discomfort is unchanged She is still very anxious Objective Vitals Vital Signs Date Time Temp Pulse Resp B/P (MAP) Pulse Ox O2 Delivery O2 Flow Rate FiO2 03/31/17 12:00 97.1 91 17 144/87 (106) 98 03/31/17 08:00 96.9 90 18 142/93 (109) 99 03/31/17 00:34 96.8 98 18 125/81 (96) 99 03/30/17 20:00 97.5 100 18 136/91 (106) 97 03/30/17 16:00 97.2 96 19 146/94 (111) 98 03/31/17 03/31/17 04/01/17 15:00 23:00 07:00 Output Total 650 ml Balance -650 ml Gastric Drainage Total 650 ml Result Diagram: 03/31/17 0450 03/31/17 0450 Other Results Laboratory Tests Test 03/30/17 05:13 03/31/17 04:50 White Blood Count 6.6 TH/MM3 7.5 TH/MM3 Red Blood Count 3.27 MIL/MM3 3.48 MIL/MM3 Hemoglobin 10.3 GM/DL 11.0 GM/DL Hematocrit 31.0 % 33.0 % Mean Corpuscular Volume 94.6 FL 94.8 FL Mean Corpuscular Hemoglobin 31.3 PG 31.5 PG Mean Corpuscular Hemoglobin Concent 33.1 % 33.3 % Red Cell Distribution Width 20.9 % 21.1 % Platelet Count 185 TH/MM3 186 TH/MM3 Mean Platelet Volume 7.0 FL 7.2 FL Neutrophils (%) (Auto) 76.0 % 77.0 % Lymphocytes (%) (Auto) 10.5 % 9.5 % Monocytes (%) (Auto) 12.8 % 12.9 % Eosinophils (%) (Auto) 0.4 % 0.2 % Basophils (%) (Auto) 0.3 % 0.4 % Neutrophils # (Auto) 5.0 TH/MM3 5.8 TH/MM3 Lymphocytes # (Auto) 0.7 TH/MM3 0.7 TH/MM3 Monocytes # (Auto) 0.8 TH/MM3 1.0 TH/MM3 Eosinophils # (Auto) 0.0 TH/MM3 0.0 TH/MM3 Basophils # (Auto) 0.0 TH/MM3 0.0 TH/MM3 CBC Comment DIFF FINAL DIFF FINAL Differential Comment Blood Urea Nitrogen 7 MG/DL 7 MG/DL Creatinine 0.56 MG/DL 0.64 MG/DL Random Glucose 87 MG/DL 134 MG/DL Calcium Level 8.0 MG/DL 8.6 MG/DL Sodium Level 141 MEQ/L 143 MEQ/L Potassium Level 3.4 MEQ/L 3.4 MEQ/L Chloride Level 108 MEQ/L 107 MEQ/L Carbon Dioxide Level 22.5 MEQ/L 28.4 MEQ/L Anion Gap 11 MEQ/L 8 MEQ/L Estimat Glomerular Filtration Rate 113 ML/MIN 97 ML/MIN Magnesium Level 1.8 MG/DL Imaging Last Impressions Abdomen X-Ray 03/30/17 0800 Signed Impressions: Service Date/Time: Thursday, March 30, 2017 09:15 - CONCLUSION: 1. Dilated small bowel loops again noted which can be seen with ileus versus obstruction. 2. Status post cholecystectomy. Mahamed Antunez MD Small Bowel X-Ray 03/30/17 0000 Signed Impressions: Service Date/Time: Thursday, March 30, 2017 14:21 - CONCLUSION: High-grade small bowel obstruction at the level of the distal ileum. Transition is in the right side of the pelvic cavity. Andres Natarajan MD Abdomen Ultrasound 03/28/17 0000 Signed Impressions: Service Date/Time: Tuesday, March 28, 2017 12:21 - CONCLUSION: Small blind ascites with insufficient volume for safe paracentesis. Dilated small bowel loops noted. Austin Mcallister Jr., MD Last Impressions Abdomen X-Ray 03/26/17 0000 Signed Impressions: Service Date/Time: Sunday, March 26, 2017 17:26 - CONCLUSION: Nasogastric tube coiled in the stomach, across the GE junction. Ethan Dubose MD FACR Objective Remarks General: NAD, AAOx3 ENT: NGT in right nare Chest: CTA Cardiac: Regular Abd: Minimal BS, soft, mildly distended Ext: No edema A/P Problem List: (1) Small bowel obstruction ICD Codes: K56.609 - Unspecified intestinal obstruction, unspecified as to partial versus complete obstruction; J90 - Pleural effusion, not elsewhere classified; R18.8 - Other ascites Status: Acute Plan: Pt is a 51 y/o female with metastatic ovarian cancer on oral chemo with Zejula 200mg po daily and follows with Dr. Garcia. Pt reports that for the last week and a half she has been having issues with nausea/vomiting and constipation. She states that in the last 10 days she has had one BM which was 4 days ago and that was after using 2 enemas. She was also using MOM at home for constipation without relief. She has not been able to tolerate much oral intake and has been receiving IVF from her Oncologist, Dr. Garcia. Pt was in our IR department today getting a therapeutic paracentesis with removal of 1000mL of ascetic fluid. She told the radiologist about her nausea and vomiting and a CT Abd/ pelvis was ordered which revealed a distal SBO with transition point in the right lower quadrant and loculated ascites. Pt was sent to the ED for admission and surgical consultation. SBO with transition point in RLQ Nausea/vomiting Constipation - NGT placed in the ED - NGT to LIWS - General surgery following. - IVF rate decreased on 03/28 as pt felt her abdomen was filling up with fluid again. US guided paracentesis was ordered but not enough fluid for drainage. - Pt had +flatus and small BM but has been unable to tolerate clear liquid diet without significant pain - Zofran PRN - Protonix 40mg IV Q12H - Appreciate consultation from General Surgery and Concrete Bucket Loader/Onc. We will continue with conservative management and monitor for continued progression. - KUB (03/30) --> Dilated small bowel loops again noted which can be seen with ileus vs. obstruction. s/p cholecystectomy - Gastrografin SBFT (03/30) --> High-grade small bowel obstruction at the level of the distal ileum. Transition is in the right side of the pelvic cavity. - Case discussed with General Surgery on 03/31 and pt is planned for surgical intervention tomorrow - NPO afer MN tonight - Lovenox to be held after this afternoons dose. - Supportive care - Monitor labs - Encouraged ambulation Metastatic Ovarian Cancer, recurrent Recurrent malignant ascites - Pt follows with Dr. Garcia - She was previously treated with Taxol chemotherapy with initial reduction in her CA-125 and improvement in her measurable disease on the PET scan - Pt is currently taking Zejula 200mg po daily - She had paracentesis on the day of admission with removal of 1000mL of ascitic fluid - Dr. Garcia is following Elevated BP, reportedly secondary to chemo - Pt was recently started on Norvasc 5mg po BID, this will be held while pt is NPO - Vasotec PRN - Some elevation likely related to pain and anxiety - Pain meds PRN and Ativan PRN ordered GERD - PPI Hypothyroidism - Home meds to be resumed once tolerating po intake DVT prophylaxis with Lovenox (2) Elevated BP without diagnosis of hypertension ICD Codes: R03.0 - Elevated blood-pressure reading, without diagnosis of hypertension Status: Chronic Plan: - See above (3) Ovarian cancer ICD Codes: C56.9 - Malignant neoplasm of unspecified ovary Status: Chronic Plan: - See above (4) Ascites ICD Codes: R18.8 - Ascites Status: Chronic Plan: - See above (5) Hypothyroid ICD Codes: E03.9 - Hypothyroidism Status: Chronic Plan: - See above Assessment and Plan Patient examined. Assessment and plan formulated with Jill Hill PA-C. Pt undergoing SBFT with gastrograffin Pt painful with study Await final results reconnect NGT to suction as soon as possible will d/w with Surgery Problem Qualifiers (1) Ovarian cancer: Qualified Codes: C56.9 - Malignant neoplasm of unspecified ovary (2) Ascites: Qualified Codes: R18.0 - Malignant ascites Jill Hill Mar 31, 2017 13:58 Miguel Domingo DO Apr 02, 2017 23:09
[2017-03-31] MEDS: ENOXAPARIN SODIUM 30 MG/0.3 ML SYRINGE SQ SCH (15:58)
[2017-03-31 16:00] VITALS: BP 144/94; PULSE 108; RESP 16; TEMP 98.9; O2SAT 98
[2017-03-31] MEDS: CITALOPRAM HYDROBROMIDE 20 MG TAB PO SCH (19:53)
[2017-03-31] MEDS: ZEJULA PO SCH (19:53)
[2017-03-31 20:53] VITALS: BP 130/97; PULSE 85; RESP 17; TEMP 98.1; O2SAT 99
[2017-04-01] VITALS (8 sets, daily range): BP systolic 139–165; BP diastolic 88–97; PULSE 82–101; RESP 16–17; TEMP 97–97.8; O2SAT 96–100
[2017-04-01] MEDS: NS + KCL 20 MEQ INJ 1,000 ML IV SCH ×2 (01:40→18:29)
[2017-04-01] MEDS: HYDROmorphone HCL PF 1 MG/ML VIAL IV PUSH PRN (02:36)
[2017-04-01] MEDS: ONDANSETRON HCL 4 MG/2 ML VIAL IV PRN (02:40)
[2017-04-01 03:56] LABS: INTERNATIONAL NORMALIZED RATIO 1.1 RATIO; PROTHROMBIN TIME - PATIENT 10.7 SEC (9.8-11.6)
[2017-04-01] MEDS: PANTOPRAZOLE SODIUM 40 MG VIAL IV PUSH SCH ×2 (04:56→15:44)
[2017-04-01] MEDS ORDERED: BUPIVACAINE/EPINEPHRINE 0.25% PF 30 ML VIAL ONE (05:18)
[2017-04-01] MEDS ORDERED: HYDROmorphone HCL PF 2 MG/ML VIAL ONE (06:17)
[2017-04-01] MEDS ORDERED: metroNIDAZOLE 500 MG INJ 100 ML IV ONE (07:13)
[2017-04-01] MEDS ORDERED: ceFAZolin INJ 1,000 MG VIAL IV ONE ×2 (07:22→12:00)
[2017-04-01] MEDS ORDERED: SODIUM CHLOR 0.9% 1000 ML INJ 1,000 ML IV SCH (08:00)
[2017-04-01] MEDS ORDERED: NALOXONE HCL 0.4 MG/ML AMP IV PUSH PRN (08:15)
[2017-04-01] MEDS ORDERED: Post-op Orders (for Pharmacy) XX ONE (08:15)
[2017-04-01] MEDS ORDERED: SODIUM CHLORIDE 0.9% FLUSH 10 ML FLUSH IV FLUSH PRN (08:15)
[2017-04-01] MEDS ORDERED: DO NOT ADM ANY ANTICOAGULANT DRUGS PRN (08:16)
[2017-04-01] MEDS: HYDROmorphone HCL PCA 6 MG/30 ML IV SCH (08:39)
[2017-04-01] MEDS: SODIUM CHLORIDE 0.9% FLUSH 10 ML FLUSH IV FLUSH SCH ×2 (09:00→19:40)
[2017-04-01] MEDS ORDERED: GLYCOPYRROLATE 1 MG/5 ML SYRINGE IV PUSH ONE (12:00)
[2017-04-01] MEDS ORDERED: NORMOSOL R INJ 1,000 ML IV ONE (12:00)
[2017-04-01] MEDS ORDERED: ROCURONIUM INJ 50 MG/5 ML SYRINGE IV PUSH ONE (12:00)
[2017-04-01] MEDS ORDERED: LIDOCAINE HCL 1% PF 5 ML SYRINGE OTHER ONE (12:00)
[2017-04-01] MEDS ORDERED: ONDANSETRON HCL 4 MG/2 ML VIAL IV PUSH ONE (12:00)
[2017-04-01] MEDS ORDERED: PROPOFOL 200 MG/20 ML AMP IV ONE (12:00)
[2017-04-01] MEDS ORDERED: DEXAMETHASONE SOD PHOS 4 MG/ML VIAL IV ONE (12:00)
[2017-04-01] MEDS ORDERED: MIDAZOLAM HCL 2 MG/2 ML VIAL IV ONE (12:00)
[2017-04-01] MEDS ORDERED: SUCCINYLCHOLINE CHLORIDE 100 MG/5 ML SYRINGE IV PUSH ONE (12:00)
[2017-04-01] MEDS ORDERED: NEOSTIGMINE 5 MG/5 ML SYRINGE IV PUSH ONE (12:00)
[2017-04-01] MEDS: LORazepam 2 MG/ML VIAL IV PUSH PRN ×2 (12:40→21:49)
--- NOTE | 2017-04-01 13:07 | HHI.PR ---
Subjective Subjective Notes Abdominal discomfort about the same Objective Vitals/I&O Vital Signs Date Time Temp Pulse Resp B/P (MAP) Pulse Ox O2 Delivery O2 Flow Rate FiO2 04/01/17 12:00 97.3 90 17 165/94 (117) 100 04/01/17 09:15 Nasal Cannula 2 Labs Laboratory Tests Test 04/01/17 03:22 Prothrombin Time 10.7 Prothromb Time International Ratio 1.1 Radiology Last Impressions Abdomen X-Ray 03/30/17 0800 Signed Impressions: Service Date/Time: Thursday, March 30, 2017 09:15 - CONCLUSION: 1. Dilated small bowel loops again noted which can be seen with ileus versus obstruction. 2. Status post cholecystectomy. Mahamed Antunez MD Small Bowel X-Ray 03/30/17 0000 Signed Impressions: Service Date/Time: Thursday, March 30, 2017 14:21 - CONCLUSION: High-grade small bowel obstruction at the level of the distal ileum. Transition is in the right side of the pelvic cavity. Andres Natarajan MD Abdomen Ultrasound 03/28/17 0000 Signed Impressions: Service Date/Time: Tuesday, March 28, 2017 12:21 - CONCLUSION: Small blind ascites with insufficient volume for safe paracentesis. Dilated small bowel loops noted. Austin Mcallister Jr., MD Abdomen: Post-op tenderness Extremities: Perfused Narrative Exam NGT with moderate amount of drainage A/P Assessment and Plan 51yo F with Metastatic ovarian carcinoma with partial small bowel obstruction s /p laparoscopy with lysis of adhesion -Ok for clears, do not clamp NGT -May need GI consult for G-tube placement if can not tolerate PO -From surgical standpoint there is nothing more that can be done Kyle Pelaez WEB DESIGNER Apr 01, 2017 13:07
--- NOTE | 2017-04-01 14:34 | EKG ---
Date Performed: 04/01/2017 Time Performed: 03:30:04 PTAGE: 52 years EKG: Sinus rhythm Short AL interval Borderline ECG NO PREVIOUS TRACING DOCTOR: Meagan Santoro Interpretating Date/Time 04/01/2017 14:28:40
--- NOTE | 2017-04-01 15:47 | HHI.PR ---
Subjective Remarks Pt's pain is controlled. Objective Vitals Vital Signs Date Time Temp Pulse Resp B/P (MAP) Pulse Ox O2 Delivery O2 Flow Rate FiO2 04/01/17 12:00 97.3 90 17 165/94 (117) 100 04/01/17 10:00 97.2 87 16 157/89 (111) 100 04/01/17 09:15 98.2 103 13 156/84 (108) 100 Nasal Cannula 2 04/01/17 09:00 92 14 151/79 (103) 100 Nasal Cannula 2 04/01/17 08:45 93 19 153/82 (105) 100 Nasal Cannula 2 04/01/17 08:39 14 04/01/17 08:30 106 19 152/92 (112) 100 Nasal Cannula 2 04/01/17 08:17 98.0 118 14 178/97 (124) 100 Nasal Cannula 2 04/01/17 06:07 98 22 155/101 (119) 99 04/01/17 06:06 98.5 101 24 173/103 (126) 98 04/01/17 06:06 101 04/01/17 05:15 97.8 93 17 159/97 (117) 99 04/01/17 03:06 18 04/01/17 00:00 97.6 82 17 139/89 (106) 96 03/31/17 20:53 98.1 85 17 130/97 (108) 99 03/31/17 16:00 98.9 108 16 144/94 (111) 98 04/01/17 04/01/17 04/02/17 14:59 22:59 06:59 Intake Total 1562 ml Output Total 1865 ml Balance -303 ml Intake Oral 0 ml IV Total 1562 ml Output Urine Total 50 ml Gastric Drainage Total 5 ml Estimated Blood Loss 10 ml Other 1800 ml # Voids 0 Result Diagram: 03/31/17 0450 03/31/17 0450 Imaging Last Impressions Abdomen X-Ray 03/30/17 0800 Signed Impressions: Service Date/Time: Thursday, March 30, 2017 09:15 - CONCLUSION: 1. Dilated small bowel loops again noted which can be seen with ileus versus obstruction. 2. Status post cholecystectomy. Mahamed Antunez MD Small Bowel X-Ray 03/30/17 0000 Signed Impressions: Service Date/Time: Thursday, March 30, 2017 14:21 - CONCLUSION: High-grade small bowel obstruction at the level of the distal ileum. Transition is in the right side of the pelvic cavity. Andres Natarajan MD Abdomen Ultrasound 03/28/17 0000 Signed Impressions: Service Date/Time: Tuesday, March 28, 2017 12:21 - CONCLUSION: Small blind ascites with insufficient volume for safe paracentesis. Dilated small bowel loops noted. Austin Mcallister Jr., MD Objective Remarks General: NAD, AAOx3 ENT: NGT in right nare Chest: CTA Cardiac: Regular Abd: Minimal BS, soft, mildly distended Ext: No edema A/P Problem List: (1) Small bowel obstruction ICD Codes: K56.609 - Unspecified intestinal obstruction, unspecified as to partial versus complete obstruction; J90 - Pleural effusion, not elsewhere classified; R18.8 - Other ascites Status: Acute Plan: Pt is a 51 y/o female with metastatic ovarian cancer on oral chemo with Zejula 200mg po daily and follows with Dr. Garcia. Pt reports that for the last week and a half she has been having issues with nausea/vomiting and constipation. She states that in the last 10 days she has had one BM which was 4 days ago and that was after using 2 enemas. She was also using MOM at home for constipation without relief. She has not been able to tolerate much oral intake and has been receiving IVF from her Oncologist, Dr. Garcia. Pt was in our IR department today getting a therapeutic paracentesis with removal of 1000mL of ascetic fluid. She told the radiologist about her nausea and vomiting and a CT Abd/ pelvis was ordered which revealed a distal SBO with transition point in the right lower quadrant and loculated ascites. Pt was sent to the ED for admission and surgical consultation. SBO with transition point in RLQ Nausea/vomiting Constipation - comgmt with Music Video Producer Oncology/General surgery - NGT placed in the ED - NGT to LIWS - Zofran PRN - Protonix 40mg IV Q12H - KUB (03/30) --> Dilated small bowel loops again noted which can be seen with ileus vs. obstruction. s/p cholecystectomy - Gastrografin SBFT (03/30) --> High-grade small bowel obstruction at the level of the distal ileum. Transition is in the right side of the pelvic cavity. - Pt underwent exploratory laparoscopy (04/01) with Dr. King - Pt underwent lysis of adhesions - NO surgical cure/intervention for pt's SBO - consider G/J tube if pt still unable to tolerate PO intake - will discuss further with Music Video Producer Oncology - Lovenox - Supportive care - Monitor labs - Encouraged ambulation Metastatic Ovarian Cancer, recurrent Recurrent malignant ascites - Pt follows with Dr. Garcia - She was previously treated with Taxol chemotherapy with initial reduction in her CA-125 and improvement in her measurable disease on the PET scan - Pt is currently taking Zejula 200mg po daily - She had paracentesis on the day of admission with removal of 1000mL of ascitic fluid - Dr. Garcia is following Elevated BP, reportedly secondary to chemo - Pt was recently started on Norvasc 5mg po BID, this will be held while pt is NPO - Vasotec PRN - Some elevation likely related to pain and anxiety - Pain meds PRN and Ativan PRN ordered GERD - PPI Hypothyroidism - Home meds to be resumed once tolerating po intake DVT prophylaxis with Lovenox (2) Elevated BP without diagnosis of hypertension ICD Codes: R03.0 - Elevated blood-pressure reading, without diagnosis of hypertension Status: Chronic Plan: - See above (3) Ovarian cancer ICD Codes: C56.9 - Malignant neoplasm of unspecified ovary Status: Chronic Plan: - See above (4) Ascites ICD Codes: R18.8 - Ascites Status: Chronic Plan: - See above (5) Hypothyroid ICD Codes: E03.9 - Hypothyroidism Status: Chronic Plan: - See above Problem Qualifiers (1) Ovarian cancer: Qualified Codes: C56.9 - Malignant neoplasm of unspecified ovary (2) Ascites: Qualified Codes: R18.0 - Malignant ascites Miguel Domingo DO Apr 01, 2017 15:47
[2017-04-01] MEDS: ZEJULA PO SCH (19:40)
[2017-04-01] MEDS: CITALOPRAM HYDROBROMIDE 20 MG TAB PO SCH (19:40)
[2017-04-01] MEDS: PCA - TOTAL MG DILAUDID DELIVERED PER SHIFT SCH (21:51)
[2017-04-02] VITALS (7 sets, daily range): BP systolic 134–146; BP diastolic 80–98; PULSE 79–124; RESP 16–21; TEMP 97.2–99; O2SAT 95–99
[2017-04-02] MEDS: metroNIDAZOLE 500 MG INJ 100 ML IV SCH ×2 (00:01→08:25)
[2017-04-02] MEDS: NS + KCL 20 MEQ INJ 1,000 ML IV SCH ×2 (04:29→14:15)
[2017-04-02] MEDS: PANTOPRAZOLE SODIUM 40 MG VIAL IV PUSH SCH ×2 (05:01→16:49)
[2017-04-02] MEDS: PCA - TOTAL MG DILAUDID DELIVERED PER SHIFT SCH ×3 (05:48→20:06)
[2017-04-02] MEDS: SODIUM CHLORIDE 0.9% FLUSH 10 ML FLUSH IV FLUSH SCH ×2 (08:26→20:06)
[2017-04-02] MEDS: ENOXAPARIN SODIUM 30 MG/0.3 ML SYRINGE SQ SCH (08:26)
[2017-04-02] MEDS: LORazepam 2 MG/ML VIAL IV PUSH PRN ×2 (11:20→21:36)
--- NOTE | 2017-04-02 15:00 | HHI.PR ---
Subjective Remarks Patient reports some abdominal pain s/p bridget laparotomy 04/01- tolerable with SKIDDER OPERATOR Patient met with hospice this AM for informational meeting- patient states she wishes to have consult with [facility] before going toward Hospice NG tube inplace patient endorses sore throat offers no other complaints at this time Objective Vitals Vital Signs Date Time Temp Pulse Resp B/P (MAP) Pulse Ox O2 Delivery O2 Flow Rate FiO2 04/02/17 14:00 16 04/02/17 12:00 98.3 86 21 138/80 (99) 96 04/02/17 08:30 98 21 04/02/17 08:00 97.2 124 19 138/98 (111) 98 04/02/17 05:48 16 04/02/17 05:10 97.9 79 16 137/83 (101) 97 04/02/17 00:01 98.2 88 20 134/82 (99) 98 04/01/17 21:51 18 04/01/17 20:13 97.0 88 16 140/88 (105) 98 04/01/17 17:49 97 Nasal Cannula 2.00 04/01/17 16:00 97.0 94 17 142/89 (106) 97 04/02/17 04/02/17 04/03/17 15:00 23:00 07:00 Intake Total 1440 ml Balance 1440 ml Intake Oral 240 ml IV Total 1200 ml Result Diagram: 03/31/17 0450 03/31/17 0450 Other Results Laboratory Tests Test 03/31/17 04:50 04/01/17 03:22 White Blood Count 7.5 TH/MM3 Red Blood Count 3.48 MIL/MM3 Hemoglobin 11.0 GM/DL Hematocrit 33.0 % Mean Corpuscular Volume 94.8 FL Mean Corpuscular Hemoglobin 31.5 PG Mean Corpuscular Hemoglobin Concent 33.3 % Red Cell Distribution Width 21.1 % Platelet Count 186 TH/MM3 Mean Platelet Volume 7.2 FL Neutrophils (%) (Auto) 77.0 % Lymphocytes (%) (Auto) 9.5 % Monocytes (%) (Auto) 12.9 % Eosinophils (%) (Auto) 0.2 % Basophils (%) (Auto) 0.4 % Neutrophils # (Auto) 5.8 TH/MM3 Lymphocytes # (Auto) 0.7 TH/MM3 Monocytes # (Auto) 1.0 TH/MM3 Eosinophils # (Auto) 0.0 TH/MM3 Basophils # (Auto) 0.0 TH/MM3 CBC Comment DIFF FINAL Differential Comment Blood Urea Nitrogen 7 MG/DL Creatinine 0.64 MG/DL Random Glucose 134 MG/DL Calcium Level 8.6 MG/DL Magnesium Level 1.8 MG/DL Sodium Level 143 MEQ/L Potassium Level 3.4 MEQ/L Chloride Level 107 MEQ/L Carbon Dioxide Level 28.4 MEQ/L Anion Gap 8 MEQ/L Estimat Glomerular Filtration Rate 97 ML/MIN Prothrombin Time 10.7 SEC Prothromb Time International Ratio 1.1 RATIO Imaging Last Impressions Abdomen X-Ray 03/30/17 0800 Signed Impressions: Service Date/Time: Thursday, March 30, 2017 09:15 - CONCLUSION: 1. Dilated small bowel loops again noted which can be seen with ileus versus obstruction. 2. Status post cholecystectomy. Mahamed Antunez MD Small Bowel X-Ray 03/30/17 0000 Signed Impressions: Service Date/Time: Thursday, March 30, 2017 14:21 - CONCLUSION: High-grade small bowel obstruction at the level of the distal ileum. Transition is in the right side of the pelvic cavity. Andres Natarajan MD Abdomen Ultrasound 03/28/17 0000 Signed Impressions: Service Date/Time: Tuesday, March 28, 2017 12:21 - CONCLUSION: Small blind ascites with insufficient volume for safe paracentesis. Dilated small bowel loops noted. Austin Mcallister Jr., MD Objective Remarks General: NAD, AAOx3 ENT: NGT in right nare Chest: CTA Cardiac: Regular Abd: Minimal BS, soft, mildly distended Ext: No edema Procedures 04/01 exploratory lap with lysis of adhesions with Dr. Ward A/P Problem List: (1) Small bowel obstruction ICD Codes: K56.609 - Unspecified intestinal obstruction, unspecified as to partial versus complete obstruction; J90 - Pleural effusion, not elsewhere classified; R18.8 - Other ascites Status: Acute Plan: Pt is a 51 y/o female with metastatic ovarian cancer on oral chemo with Zejula 200mg po daily and follows with Dr. Garcia. Pt reports that for the last week and a half she has been having issues with nausea/vomiting and constipation. She states that in the last 10 days she has had one BM which was 4 days ago and that was after using 2 enemas. She was also using MOM at home for constipation without relief. She has not been able to tolerate much oral intake and has been receiving IVF from her Oncologist, Dr. Garcia. Pt was in our IR department today getting a therapeutic paracentesis with removal of 1000mL of ascetic fluid. She told the radiologist about her nausea and vomiting and a CT Abd/pelvis was ordered which revealed a distal SBO with transition point in the right lower quadrant and loculated ascites. Pt was sent to the ED for admission and surgical consultation. SBO with transition point in RLQ Nausea/vomiting Constipation - comgmt with Neurology Technician Oncology/General surgery - NGT placed in the ED - NGT to LIWS - Zofran PRN - Protonix 40mg IV Q12H - KUB (03/30) --> Dilated small bowel loops again noted which can be seen with ileus vs. obstruction. s/p cholecystectomy - Gastrografin SBFT (03/30) --> High-grade small bowel obstruction at the level of the distal ileum. Transition is in the right side of the pelvic cavity. - Pt underwent exploratory laparoscopy (04/01) with Dr. King - Pt underwent lysis of adhesions - NO surgical cure/intervention for pt's SBO - consider G tube if pt still unable to tolerate PO intake - consult to GI for G tube placement - Lovenox - Supportive care - Monitor labs - Encouraged ambulation Metastatic Ovarian Cancer, recurrent Recurrent malignant ascites - Pt follows with Dr. Garcia - She was previously treated with Taxol chemotherapy with initial reduction in her CA-125 and improvement in her measurable disease on the PET scan - Pt is currently taking Zejula 200mg po daily - She had paracentesis on the day of admission with removal of 1000mL of ascitic fluid - Dr. Garcia is following - Patient met with hospice this AM (04/02) for informational meeting- patient states she wishes to have consult with [facility] before deciding on Hospice Elevated BP, reportedly secondary to chemo - Pt was recently started on Norvasc 5mg po BID, this will be held while pt is NPO - Vasotec PRN - Some elevation likely related to pain and anxiety - Pain meds PRN and Ativan PRN ordered GERD - PPI Hypothyroidism - Home meds to be resumed once tolerating po intake DVT prophylaxis with Lovenox (2) Elevated BP without diagnosis of hypertension ICD Codes: R03.0 - Elevated blood-pressure reading, without diagnosis of hypertension Status: Chronic Plan: - See above (3) Ovarian cancer ICD Codes: C56.9 - Malignant neoplasm of unspecified ovary Status: Chronic Plan: - See above (4) Ascites ICD Codes: R18.8 - Ascites Status: Chronic Plan: - See above (5) Hypothyroid ICD Codes: E03.9 - Hypothyroidism Status: Chronic Plan: - See above Assessment and Plan Patient examined. Assessment and plan formulated with Shikha Yeboah PA-C. I agree with the above. Pt in good spirits. Pt discussed case with Dr. Garcia this AM. Pt would like to obtain second opinion at [facility]. Case d/w Dr. King (04/02). No surgical option. GI consulted for possible G-tube placement. Will need to start TPN for nutritional support. Pt had informational meeting with Hospice this AM. Pt willing to consider Hospice if NO new therapeutic options from [place]. Problem Qualifiers (1) Ovarian cancer: Qualified Codes: C56.9 - Malignant neoplasm of unspecified ovary (2) Ascites: Qualified Codes: R18.0 - Malignant ascites Shikha Yeboah Apr 02, 2017 15:00 Miguel Domingo DO Apr 02, 2017 23:12
[2017-04-02] MEDS: ONDANSETRON HCL 4 MG/2 ML VIAL IV PUSH PRN (16:45)
--- NOTE | 2017-04-02 19:42 | MB ---
cc: LUPE POTTER M.D., JOEL MOLPUS,PJ PEPE MD, MD, LAURA DATE OF CONSULTATION: 04/02/2017 REASON FOR CONSULTATION: DIAGNOSIS: Recurrent ovarian cancer with multifocal intestinal obstruction, not amenable to surgical correction. Our nurse practitioner (Davidson Peoples) and myself met with Connor Henley this morning. She was accompanied by her mother and her two daughters as well as her nurse who is taking care of her as an inpatient. I spent 30 minutes of a 30 minute encounter and [id number] time counseling in coordination of care. We reiterated the findings at the time of surgery yesterday. Dr. Joaquin Ward performed laparoscopy to see if there is a way to surgically bypass, correct or divert her intestine due to bowel obstruction. I reviewed the findings showing multifocal tumor in both the large and small bowel at multiple locations such that there was not healthy, unobstructed bowel that could be used for resection and/or reanastomosis and/or bypass. Furthermore there was not enough proximal small bowel uninvolved by tumor that would have allowed for an ileostomy. Additionally the left upper quadrant was blocked by tumor studding along the transverse colon and stomach with the transverse colon adherent to the anterior abdominal wall and at the gastrohepatic flexure that precluded the ability to place a gastric tube at the time of surgery. We reiterated again, summarized the number of treatments, the lines of treatments that she has been on and reviewed that in the context of the unfortunate nature of ovarian cancer. She is currently on sixth line, single agent oral medication with (Vejula). She has been on that medication now approximately 7 to 8 weeks without overt improvement in her clinical status but we also know the medication was started when there was evidence that her prior chemotherapy was not working. Her CA-125 was elevating, she was starting to reaccumulate ascites and become symptomatic. Nevertheless, it is explained that the likelihood of having significant and/or sustained response with additional chemotherapy is low given the nature of ovarian cancer and how it tends to become more and more resistant to treatment with each line of therapy, now her nutrition has depleted, her performance status is depleted, and I am fearful that any additional IV chemotherapy would be associated with morbidity and toxicity that exceeds benefit. Palliative steps that could be considered would be the consult GI medicine to see if they could possibly place a gastrostomy tube endoscopically and explanation and description of this procedure is done with respect to palliation of the ascites and indwelling intraperitoneal drain could be considered and this could be placed by interventional radiology, although, she just had the ascites drained yesterday so it would likely need to reaccumulate for a few days to get a safe pocket of fluid to allow entry for drain placement. We discussed the potential value of meeting with Hospice to get more information about what resources Hospice can offer, what services can be provided in the hospital or at the Care Center or at home. The ultimate goal would be for her to be at home close to her family under Hospice care at home. Many questions were asked and answered to the best of my capacity to express sincere empathy for the current set of circumstances and her situation, and we certainly commend her for all that she has been through and all that she has done steadfastly in her treatment and follow up. At the conclusion of our meeting, the family asked to have time together to consider the pertinent aspects of our discussion and to help make decisions, and they know that we are available at any time. At the present time we will move forward with Hospice consultation, GI consultation, and either in a few days as an inpatient or hopefully if she is home as an outpatient we could bring her back for palliative drain placement by interventional radiologist. MD MACIEJ Jarvis/KEREN /6:09 PM /7:23 PM
[2017-04-02] MEDS: CITALOPRAM HYDROBROMIDE 20 MG TAB PO SCH (20:02)
[2017-04-02] MEDS: ZEJULA PO SCH (20:02)
[2017-04-02] MEDS: HYDROmorphone HCL PCA 6 MG/30 ML IV SCH (20:28)
[2017-04-03] VITALS (7 sets, daily range): BP systolic 135–172; BP diastolic 75–96; PULSE 80–102; RESP 17–20; TEMP 97.1–99; O2SAT 95–98
[2017-04-03] MEDS: NS + KCL 20 MEQ INJ 1,000 ML IV SCH ×4 (00:26→21:00)
[2017-04-03] MEDS: PANTOPRAZOLE SODIUM 40 MG VIAL IV PUSH SCH ×2 (05:12→15:31)
[2017-04-03] MEDS: PCA - TOTAL MG DILAUDID DELIVERED PER SHIFT SCH ×3 (05:16→20:42)
[2017-04-03] MEDS: ENOXAPARIN SODIUM 30 MG/0.3 ML SYRINGE SQ SCH (06:22)
[2017-04-03] MEDS: ONDANSETRON HCL 4 MG/2 ML VIAL IV PUSH PRN ×3 (06:36→20:57)
[2017-04-03] MEDS: LORazepam 2 MG/ML VIAL IV PUSH PRN ×2 (09:11→21:29)
[2017-04-03] MEDS: SODIUM CHLORIDE 0.9% FLUSH 10 ML FLUSH IV FLUSH SCH ×2 (09:12→19:33)
--- NOTE | 2017-04-03 09:20 | PD.ONC.PN ---
Subjective Subjective Remarks patient resting in bed no complaints one episode of vomiting last night would like 2nd opinion at [facility] or [facility]...records faxed to [place] 04/02/17 Spoke with Hospice yesterday for information on services available Dr. Domingo contacted Dr. Garcia about the consideration of TPN, Dr. Lopez is not apposed to TPN if medicine team feels that would be helpful I discussed with Mrs. Henley as well. Objective Data Date Time Temp Pulse Resp B/P (MAP) Pulse Ox O2 Delivery O2 Flow Rate FiO2 04/03/17 08:00 98.0 94 20 135/83 (100) 97 04/03/17 05:16 20 04/03/17 04:00 97.1 80 17 135/75 (95) 95 04/03/17 00:00 97.7 95 17 137/84 (101) 98 04/02/17 21:30 99.0 94 17 146/91 (109) 95 04/02/17 20:58 18 04/02/17 20:28 20 04/02/17 16:00 97.2 89 19 146/86 (106) 99 04/02/17 14:00 16 04/02/17 12:00 98.3 86 21 138/80 (99) 96 04/03/17 04/03/17 04/03/17 07:00 15:00 23:00 Intake Total 120 ml Output Total 800 ml Balance -800 ml 120 ml Result Diagram: 03/31/17 0450 03/31/17 0450 Imaging Studies Last Impressions Abdomen X-Ray 03/30/17 0800 Signed Impressions: Service Date/Time: Thursday, March 30, 2017 09:15 - CONCLUSION: 1. Dilated small bowel loops again noted which can be seen with ileus versus obstruction. 2. Status post cholecystectomy. Mahamed Antunez MD Small Bowel X-Ray 03/30/17 0000 Signed Impressions: Service Date/Time: Thursday, March 30, 2017 14:21 - CONCLUSION: High-grade small bowel obstruction at the level of the distal ileum. Transition is in the right side of the pelvic cavity. Andres Natarajan MD Abdomen Ultrasound 03/28/17 0000 Signed Impressions: Service Date/Time: Tuesday, March 28, 2017 12:21 - CONCLUSION: Small blind ascites with insufficient volume for safe paracentesis. Dilated small bowel loops noted. Austin Mcallister Jr., MD Administered Medications Medications (Trade) Dose Ordered Sig/Andrew Route PRN Reason Start Time Stop Time Status Last Admin Dose Admin Potassium Chloride/Sodium Chloride 1,000 ml @ 100 mls/hr Q10H IV 03/26/17 17:00 04/03/17 00:26 Pantoprazole Sodium (Protonix Inj) 40 mg Q12H IV PUSH 03/26/17 17:00 04/03/17 05:12 Citalopram Hydrobromide (CeleXA) 10 mg HS PO 03/26/17 22:00 04/02/17 20:02 Patient Own Medication ZEJULA (NIRAPARIB) 100MG CAPS... HS PO 03/27/17 21:00 04/02/17 20:02 Lorazepam (Ativan Inj) 0.5 mg Q6H PRN IV PUSH anxiety, insomnia 03/28/17 09:45 04/02/17 21:36 Phenol (Chloraseptic Gravity) 2 spray Q2H PRN OROPHARYNG throat pain 03/28/17 11:15 03/28/17 19:22 Hydromorphone HCl (Dilaudid Pf Inj) 1 mg Q4H PRN IV PUSH pain 2-10 03/28/17 16:45 04/01/17 02:36 Hydromorphone HCl (Dilaudid PHARMACOVIGILANCE SCIENTIST Inj) 6 mg UNSCH IV 04/01/17 08:15 04/02/17 20:28 PHARMACOVIGILANCE SCIENTIST Dosage Infused (Pha) 1 Q8HR .XX 04/01/17 14:00 04/03/17 05:16 Sodium Chloride (NS Flush) 2 ml BID IV FLUSH 04/01/17 09:00 04/02/17 20:06 Ondansetron HCl (Zofran Inj) 4 mg Q4H PRN IV PUSH NAUSEA OR VOMITING 04/01/17 08:15 04/03/17 06:36 Enoxaparin Sodium (Lovenox Inj) 30 mg Q24H SQ 04/02/17 07:11 04/03/17 06:22 Objective Remarks GENERAL: Well-nourished, well-developed patient. SKIN: Warm and dry. HEAD: Normocephalic. EYES: No scleral icterus. No injection or drainage. CARDIOVASCULAR: Regular rate and rhythm without murmurs. RESPIRATORY: Breath sounds equal bilaterally. No accessory muscle use. MUSCULOSKELETAL: Adequate muscle tone. NEUROLOGICAL: No obvious focal deficit. Awake, alert, and oriented x3. PSYCHIATRIC: Appropriate mood and affect; insight and judgment normal. Assessment/Plan Problem List: (1) Small bowel obstruction ICD Codes: K56.609 - Unspecified intestinal obstruction, unspecified as to partial versus complete obstruction; J90 - Pleural effusion, not elsewhere classified; R18.8 - Other ascites Status: Acute Plan: small bowel follow through completed showing high grade obstruction no mass. s/p exploratory laparoscopy on 04/01/[address] King lysis of adhesions, no surgical intervention for SBO as carcinomatosis was too extensive. GI consulted for possible G tube (2) Ovarian cancer ICD Codes: C56.9 - Malignant neoplasm of unspecified ovary Status: Chronic Plan: extensive carcinomatosis any additional IV chemotherapy would likely cause her more debilitating side effects then be helpful (please refer to Dr. Garcia note from 04/02/17) patient spoke with Hospice and will consider Hospice once she has had a 2nd opinion at [place] or [facility]. comfort measures and supportive care GI consulted for possible G tube can have abdominal drain placed for PRN drainage of ascites if she decides on Hospice Problem Qualifiers (1) Ovarian cancer: Qualified Codes: C56.9 - Malignant neoplasm of unspecified ovary Davidson Peoples Apr 03, 2017 09:20
--- NOTE | 2017-04-03 16:01 | HHI.PR ---
Subjective Remarks No new complaints. Objective Vitals Vital Signs Date Time Temp Pulse Resp B/P (MAP) Pulse Ox O2 Delivery O2 Flow Rate FiO2 04/03/17 14:00 18 04/03/17 12:00 99.0 90 19 149/88 (108) 97 04/03/17 08:24 98 21 04/03/17 08:00 98.0 94 20 135/83 (100) 97 04/03/17 05:16 20 04/03/17 04:00 97.1 80 17 135/75 (95) 95 04/03/17 00:00 97.7 95 17 137/84 (101) 98 04/02/17 21:30 99.0 94 17 146/91 (109) 95 04/02/17 20:58 18 04/02/17 20:28 20 04/03/17 04/03/17 04/04/17 14:59 22:59 06:59 Intake Total 120 ml Balance 120 ml Intake Oral 120 ml Result Diagram: 03/31/17 0450 03/31/17 0450 Imaging Last Impressions Abdomen X-Ray 03/30/17 0800 Signed Impressions: Service Date/Time: Thursday, March 30, 2017 09:15 - CONCLUSION: 1. Dilated small bowel loops again noted which can be seen with ileus versus obstruction. 2. Status post cholecystectomy. Mahamed Antunez MD Small Bowel X-Ray 03/30/17 0000 Signed Impressions: Service Date/Time: Thursday, March 30, 2017 14:21 - CONCLUSION: High-grade small bowel obstruction at the level of the distal ileum. Transition is in the right side of the pelvic cavity. Andres Natarajan MD Abdomen Ultrasound 03/28/17 0000 Signed Impressions: Service Date/Time: Tuesday, March 28, 2017 12:21 - CONCLUSION: Small blind ascites with insufficient volume for safe paracentesis. Dilated small bowel loops noted. Austin Mcallister Jr., MD Objective Remarks General: NAD, AAOx3 ENT: NGT in right nare Chest: CTA Cardiac: Regular Abd: Minimal BS, soft, mildly distended Ext: No edema Procedures 04/01 exploratory lap with lysis of adhesions with Dr. Ward A/P Problem List: (1) Small bowel obstruction ICD Codes: K56.609 - Unspecified intestinal obstruction, unspecified as to partial versus complete obstruction; J90 - Pleural effusion, not elsewhere classified; R18.8 - Other ascites Status: Acute Plan: Pt is a 51 y/o female with metastatic ovarian cancer on oral chemo with Zejula 200mg po daily and follows with Dr. Garcia. Pt reports that for the last week and a half she has been having issues with nausea/vomiting and constipation. She states that in the last 10 days she has had one BM which was 4 days ago and that was after using 2 enemas. She was also using MOM at home for constipation without relief. She has not been able to tolerate much oral intake and has been receiving IVF from her Oncologist, Dr. Garcia. Pt was in our IR department today getting a therapeutic paracentesis with removal of 1000mL of ascetic fluid. She told the radiologist about her nausea and vomiting and a CT Abd/pelvis was ordered which revealed a distal SBO with transition point in the right lower quadrant and loculated ascites. Pt was sent to the ED for admission and surgical consultation. SBO with transition point in RLQ Nausea/vomiting Constipation - comgmt with [employer] Oncology/General surgery - NGT placed in the ED - NGT to LIWS - Zofran PRN - Protonix 40mg IV Q12H - KUB (03/30) --> Dilated small bowel loops again noted which can be seen with ileus vs. obstruction. s/p cholecystectomy - Gastrografin SBFT (03/30) --> High-grade small bowel obstruction at the level of the distal ileum. Transition is in the right side of the pelvic cavity. - Pt underwent exploratory laparoscopy (04/01) with Dr. King - Pt underwent lysis of adhesions - NO surgical cure/intervention for pt's SBO - IR consulted to place G-tube for drainage, procedure for 04/04 - start TPN 04/03/17 - Lovenox - Supportive care - Monitor labs - Encouraged ambulation Metastatic Ovarian Cancer, recurrent Recurrent malignant ascites - Pt follows with Dr. Garcia - She was previously treated with Taxol chemotherapy with initial reduction in her CA-125 and improvement in her measurable disease on the PET scan - Pt is currently taking Zejula 200mg po daily - She had paracentesis on the day of admission with removal of 1000mL of ascitic fluid - Dr. Garcia is following - Patient met with hospice this AM (04/02) for informational meeting- patient states she wishes to have consult with [facility] before deciding on Hospice Elevated BP, reportedly secondary to chemo - Pt was recently started on Norvasc 5mg po BID, this will be held while pt is NPO - Vasotec PRN - Some elevation likely related to pain and anxiety - Pain meds PRN and Ativan PRN ordered GERD - PPI Hypothyroidism - Home meds to be resumed once tolerating po intake DVT prophylaxis with Lovenox (2) Elevated BP without diagnosis of hypertension ICD Codes: R03.0 - Elevated blood-pressure reading, without diagnosis of hypertension Status: Chronic Plan: - See above (3) Ovarian cancer ICD Codes: C56.9 - Malignant neoplasm of unspecified ovary Status: Chronic Plan: - See above (4) Ascites ICD Codes: R18.8 - Ascites Status: Chronic Plan: - See above (5) Hypothyroid ICD Codes: E03.9 - Hypothyroidism Status: Chronic Plan: - See above Assessment and Plan Patient examined. Assessment and plan formulated with Shikha Yeboah PA-C. I agree with the above. Pt in good spirits. Pt discussed case with Dr. Garcia this AM. Pt would like to obtain second opinion at [facility]. Case d/w Dr. King (04/02). No surgical option. GI consulted for possible G-tube placement. Will need to start TPN for nutritional support. Pt had informational meeting with Hospice this AM. Pt willing to consider Hospice if NO new therapeutic options from [place]. Problem Qualifiers (1) Ovarian cancer: Qualified Codes: C56.9 - Malignant neoplasm of unspecified ovary (2) Ascites: Qualified Codes: R18.0 - Malignant ascites Miguel Domingo DO Apr 03, 2017 16:01
[2017-04-03] MEDS: CLINIMIX E 4.25/25 2000 mL- >42 mls/hr IV-CENTRAL SCH ×3 (19:32)
[2017-04-03] MEDS: ZEJULA PO SCH (19:32)
[2017-04-03] MEDS: CITALOPRAM HYDROBROMIDE 20 MG TAB PO SCH (19:32)
[2017-04-03] MEDS: FAT EMULSION 20% INJ 250 ML (Daily over 8 hours) IV-CENTRAL SCH (19:33)
[2017-04-04] VITALS (10 sets, daily range): BP systolic 125–152; BP diastolic 78–94; PULSE 63–101; RESP 17–20; TEMP 97.4–98.9; O2SAT 92–99
[2017-04-04] MEDS: ONDANSETRON HCL 4 MG/2 ML VIAL IV PUSH PRN ×5 (00:54→21:45)
[2017-04-04] MEDS: PANTOPRAZOLE SODIUM 40 MG VIAL IV PUSH SCH ×2 (04:58→17:29)
[2017-04-04] MEDS: PCA - TOTAL MG DILAUDID DELIVERED PER SHIFT SCH ×3 (05:03→20:27)
[2017-04-04] MEDS ORDERED: DEXTROSE 50% IN WATER 50 ML VIAL(D50) IV PUSH PRN (05:30)
[2017-04-04] MEDS ORDERED: GLUCAGON 1 MG/ML VIAL OTHER PRN (05:30)
[2017-04-04] MEDS: HYDROmorphone HCL PCA 6 MG/30 ML IV SCH (07:39)
[2017-04-04] MEDS: SODIUM CHLORIDE 0.9% FLUSH 10 ML FLUSH IV FLUSH SCH ×2 (07:54→20:26)
[2017-04-04] MEDS: LOW DOSE INSULIN NOVOLOG SUPPLEMENTAL SCALE SQ SCH ×4 (08:50→21:00)
[2017-04-04] MEDS: NS + KCL 20 MEQ INJ 1,000 ML IV SCH ×2 (08:50→20:35)
[2017-04-04] MEDS: LORazepam 2 MG/ML VIAL IV PUSH PRN ×2 (13:40→21:45)
--- NOTE | 2017-04-04 14:16 | HHI.PR ---
Subjective . no new c/o Objective . afeb, vss no change in exam Assessment/Plan . G-tube placement today Indwelling i.p. drain when ascites re-accumulates. TPN started d/w Dr. Domingo, possible discharge to home on Friday Q&A with Connor Henley She is hopeful for 2nd opinion as an outpatient at [facility]. We will send records. 20 minutes of this 20 minute encounter were spent in face to face discussion for counseling & directing care Terri Garcia MD Apr 04, 2017 14:16
--- NOTE | 2017-04-04 15:13 | HHI.PR ---
Subjective Remarks No new complaints. Objective Vitals Vital Signs Date Time Temp Pulse Resp B/P (MAP) Pulse Ox O2 Delivery O2 Flow Rate FiO2 04/04/17 14:00 16 04/04/17 13:06 98 04/04/17 12:00 97.7 98 20 137/87 (104) 98 04/04/17 08:00 97.4 72 20 134/82 (99) 98 04/04/17 07:39 16 04/04/17 01:22 98.6 101 20 152/91 (111) 97 04/03/17 21:21 97.7 102 20 157/90 (112) 98 04/03/17 19:30 21 04/03/17 16:00 98.3 96 20 172/96 (121) 96 04/04/17 04/04/17 04/05/17 15:00 23:00 07:00 Intake Total 0 ml Output Total 500 ml Balance -500 ml Intake Oral 0 ml Output Urine Total 500 ml Result Diagram: 03/31/17 0450 03/31/17 0450 Imaging Last Impressions Abdomen X-Ray 03/30/17 0800 Signed Impressions: Service Date/Time: Thursday, March 30, 2017 09:15 - CONCLUSION: 1. Dilated small bowel loops again noted which can be seen with ileus versus obstruction. 2. Status post cholecystectomy. Mahamed Antunez MD Small Bowel X-Ray 03/30/17 0000 Signed Impressions: Service Date/Time: Thursday, March 30, 2017 14:21 - CONCLUSION: High-grade small bowel obstruction at the level of the distal ileum. Transition is in the right side of the pelvic cavity. Andres Natarajan MD Abdomen Ultrasound 03/28/17 0000 Signed Impressions: Service Date/Time: Tuesday, March 28, 2017 12:21 - CONCLUSION: Small blind ascites with insufficient volume for safe paracentesis. Dilated small bowel loops noted. Austin Mcallister Jr., MD Objective Remarks General: NAD, AAOx3 ENT: NGT in right nare Chest: CTA Cardiac: Regular Abd: Minimal BS, soft, mildly distended Ext: No edema Procedures 04/01 exploratory lap with lysis of adhesions with Dr. Ward A/P Problem List: (1) Small bowel obstruction ICD Codes: K56.609 - Unspecified intestinal obstruction, unspecified as to partial versus complete obstruction; J90 - Pleural effusion, not elsewhere classified; R18.8 - Other ascites Status: Acute Plan: Pt is a 51 y/o female with metastatic ovarian cancer on oral chemo with Zejula 200mg po daily and follows with Dr. Garcia. Pt reports that for the last week and a half she has been having issues with nausea/vomiting and constipation. She states that in the last 10 days she has had one BM which was 4 days ago and that was after using 2 enemas. She was also using MOM at home for constipation without relief. She has not been able to tolerate much oral intake and has been receiving IVF from her Oncologist, Dr. Garcia. Pt was in our IR department today getting a therapeutic paracentesis with removal of 1000mL of ascetic fluid. She told the radiologist about her nausea and vomiting and a CT Abd/pelvis was ordered which revealed a distal SBO with transition point in the right lower quadrant and loculated ascites. Pt was sent to the ED for admission and surgical consultation. SBO with transition point in RLQ Nausea/vomiting Constipation - comgmt with [employer] Oncology/General surgery - NGT placed in the ED - NGT to LIWS - Zofran PRN - Protonix 40mg IV Q12H - KUB (03/30) --> Dilated small bowel loops again noted which can be seen with ileus vs. obstruction. s/p cholecystectomy - Gastrografin SBFT (03/30) --> High-grade small bowel obstruction at the level of the distal ileum. Transition is in the right side of the pelvic cavity. - Pt underwent exploratory laparoscopy (04/01) with Dr. King - Pt underwent lysis of adhesions - NO surgical cure/intervention for pt's SBO - IR consulted to place G-tube for drainage, procedure for 04/04 - started TPN 04/03/17 - Lovenox - Case d/w Dr. Garcia (04/04/17) - if pt stabilizes with G-tube, will try to discharge Metastatic Ovarian Cancer, recurrent Recurrent malignant ascites - Pt follows with Dr. Garcia - She was previously treated with Taxol chemotherapy with initial reduction in her CA-125 and improvement in her measurable disease on the PET scan - Pt is currently taking Zejula 200mg po daily - She had paracentesis on the day of admission with removal of 1000mL of ascitic fluid - Dr. Garcia is following - Patient met with hospice (04/02) for informational meeting- patient states she wishes to have consult with [facility] before deciding on Hospice Elevated BP, reportedly secondary to chemo - Pt was recently started on Norvasc 5mg po BID, this will be held while pt is NPO - Vasotec PRN - Some elevation likely related to pain and anxiety - Pain meds PRN and Ativan PRN ordered GERD - PPI Hypothyroidism - Home meds to be resumed once tolerating po intake DVT prophylaxis with Lovenox (2) Elevated BP without diagnosis of hypertension ICD Codes: R03.0 - Elevated blood-pressure reading, without diagnosis of hypertension Status: Chronic Plan: - See above (3) Ovarian cancer ICD Codes: C56.9 - Malignant neoplasm of unspecified ovary Status: Chronic Plan: - See above (4) Ascites ICD Codes: R18.8 - Ascites Status: Chronic Plan: - See above (5) Hypothyroid ICD Codes: E03.9 - Hypothyroidism Status: Chronic Plan: - See above Assessment and Plan Patient examined. Assessment and plan formulated with Shikha Yeboah PA-C. I agree with the above. Pt in good spirits. Pt discussed case with Dr. Garcia this AM. Pt would like to obtain second opinion at [facility]. Case d/w Dr. King (04/02). No surgical option. GI consulted for possible G-tube placement. Will need to start TPN for nutritional support. Pt had informational meeting with Hospice this AM. Pt willing to consider Hospice if NO new therapeutic options from [place]. Problem Qualifiers (1) Ovarian cancer: Qualified Codes: C56.9 - Malignant neoplasm of unspecified ovary (2) Ascites: Qualified Codes: R18.0 - Malignant ascites Miguel Domingo DO Apr 04, 2017 15:13
[2017-04-04] MEDS ORDERED: MIDAZOLAM HCL 2 MG/2 ML VIAL ONE ×3 (15:34→15:53)
[2017-04-04] MEDS ORDERED: IOHEXOL 350 MG/ML 50 ML BTL (for RAD DIAG) G-TUBE ONE (15:43)
--- NOTE | 2017-04-04 16:20 | PD.RAD ---
Post Procedure Progress Note Pre Procedure Diagnosis: (1) Ovarian cancer Post Procedure Diagnosis: (1) Ovarian cancer Procedure Date: Apr 04, 2017 Supervising Radiologist: Bentley King Proceduralist/Assist: Savanah Sandoval, RT(R)(CV), Rufino Salas, RT(R), Marina Garcia, RT(R) Anesthesia: Conscious Sedation Plan of Activity Patient to Unit: Nursing Unit Patient Condition: Good See PACS Report for procedural detail/treatment Feeding Tube Gastrostomy Placement Bentley King MD Apr 04, 2017 16:20
--- NOTE | 2017-04-04 17:08 | RADRPT ---
EXAM DATE/TIME: 04/04/2017 16:14 [facility] COMPARISON: No previous studies available for comparison. INDICATIONS : Patient with small bowel obstruction in need of gastrostomy tube placement. MEDICAL HISTORY : Metastatic ovarian cancer, follows with Dr. Garcia Elevated BP related to chemo per the pt GERD Gastroparesis Hypothyroidism Situational depression SURGICAL HISTORY : Laparoscopy with extensive ADI, robotic assisted hysterectomy with BSO, omentectomy and resection of intraperitoneal tumor on 10/03/2014 Port placement in 2014 Lap eric Tubal ligation ENCOUNTER: Initial ACUITY: 2 weeks PAIN SCORE: 0/10 FLUORO TIME: 4.6 minutes IMAGE SERIES: 2 SEDATION TIME: 30 minutes CONTRAST: 30 cc Omnipaque (iohexol) 350 MEDICATION(S): 1.) 225 mcg fentanyl (Sublimaze) IV 2.) 4.5 mg midazolam (Versed) IV DEVICE(S): 1.) 18 Fr gastrostomy tube PROCEDURE : 1. Limited abdominal ultrasound. 2. Fluoroscopically guided gastrostomy tube placement. 3. Conscious sedation with continuous EKG and oximetry monitoring. The risks, benefits and alternatives to the procedure were explained and verbal and written consent w as obtained. The site was prepped in sterile fashion. Full sterile technique was used, including ca p, mask, sterile gloves and gown and a large sterile sheet. Hand hygiene and 2% chlorhexidine and/or betadine/alcohol prep was utilized per protocol for cutaneous antisepsis. The skin and subcutaneous tissues were infiltrated with local anesthetic solution. Sterile gel and sterile probe cover were u tilized for ultrasound guidance. Ultrasound was used to laurie the position of the liver. The stomach was insufflated with room air. Th ree percutaneous fasteners were placed to secure the anterior gastric wall. A small incision was made between the fasteners. The stomach was accessed with an 18 gauge needle. A n 0.035 wire was advanced into the small bowel. The tract was dilated. The gastrostomy tube was int roduced through a peel-away sheath. The position was confirmed with an injection of contrast. Conscious sedation was performed with the prescribed dosages and duration as above in the presence of an independent trained radiology nurse to assist in the monitoring of the patient. EKG and oximetry remained stable throughout the procedure. The patient tolerated the procedure well and there were n o complications. The patient was sent to post anesthesia recovery in stable condition. CONCLUSION: Uncomplicated gastrostomy tube placement as above. Bentley King MD on April 04, 2017 at 17:06 Board Certified Radiologist. This report was verified electronically.
[2017-04-04] MEDS: CLINIMIX E 4.25/25 2000 mL- >42 mls/hr IV-CENTRAL SCH ×3 (20:26)
[2017-04-04] MEDS: FAT EMULSION 20% INJ 250 ML (Daily over 8 hours) IV-CENTRAL SCH (20:26)
[2017-04-04] MEDS: ZEJULA PO SCH (20:26)
[2017-04-04] MEDS: CITALOPRAM HYDROBROMIDE 20 MG TAB PO SCH (20:27)
[2017-04-05 01:26] VITALS: BP 133/84; PULSE 95; RESP 20; TEMP 98.3; O2SAT 97
[2017-04-05] MEDS: ONDANSETRON HCL 4 MG/2 ML VIAL IV PUSH PRN ×4 (03:20→21:02)
[2017-04-05] MEDS: PANTOPRAZOLE SODIUM 40 MG VIAL IV PUSH SCH ×2 (03:20→18:02)
[2017-04-05] MEDS: PCA - TOTAL MG DILAUDID DELIVERED PER SHIFT SCH ×3 (03:22→21:00)
[2017-04-05 08:00] VITALS: BP 124/78; PULSE 101; RESP 16; TEMP 96.9; O2SAT 96
[2017-04-05] MEDS: LOW DOSE INSULIN NOVOLOG SUPPLEMENTAL SCALE SQ SCH ×4 (08:00→21:00)
[2017-04-05] MEDS: NS + KCL 20 MEQ INJ 1,000 ML IV SCH ×2 (08:41→21:00)
[2017-04-05] MEDS: SODIUM CHLORIDE 0.9% FLUSH 10 ML FLUSH IV FLUSH SCH ×2 (08:51→20:53)
[2017-04-05] MEDS: HYDROmorphone HCL PCA 6 MG/30 ML IV SCH (08:51)
[2017-04-05 12:00] VITALS: BP 127/73; PULSE 97; RESP 17; TEMP 97; O2SAT 97
--- NOTE | 2017-04-05 13:12 | HHI.PR ---
Subjective Remarks No new complaints. Objective Vitals Vital Signs Date Time Temp Pulse Resp B/P (MAP) Pulse Ox O2 Delivery O2 Flow Rate FiO2 04/05/17 12:00 97.0 97 17 127/73 (91) 97 04/05/17 08:51 14 04/05/17 08:00 96.9 101 16 124/78 (93) 96 04/05/17 03:22 18 04/05/17 01:26 98.3 95 20 133/84 (100) 97 04/04/17 21:17 97.6 88 20 132/82 (99) 99 04/04/17 20:27 18 04/04/17 18:15 97 04/04/17 17:19 98.9 90 20 125/78 (94) 97 04/04/17 17:04 82 18 135/80 (98) 95 04/04/17 16:34 91 17 131/82 (98) 92 04/04/17 16:19 97.7 63 18 136/94 (108) 95 04/04/17 14:00 16 Imaging Last Impressions Abdomen X-Ray 03/30/17 0800 Signed Impressions: Service Date/Time: Thursday, March 30, 2017 09:15 - CONCLUSION: 1. Dilated small bowel loops again noted which can be seen with ileus versus obstruction. 2. Status post cholecystectomy. Mahamed Antunez MD Small Bowel X-Ray 03/30/17 0000 Signed Impressions: Service Date/Time: Thursday, March 30, 2017 14:21 - CONCLUSION: High-grade small bowel obstruction at the level of the distal ileum. Transition is in the right side of the pelvic cavity. Andres Natarajan MD Abdomen Ultrasound 03/28/17 0000 Signed Impressions: Service Date/Time: Tuesday, March 28, 2017 12:21 - CONCLUSION: Small blind ascites with insufficient volume for safe paracentesis. Dilated small bowel loops noted. Austin Mcallister Jr., MD Objective Remarks General: NAD, AAOx3 ENT: NGT in right nare Chest: CTA Cardiac: Regular Abd: Minimal BS, soft, mildly distended Ext: No edema Procedures 04/01 exploratory lap with lysis of adhesions with Dr. Ward A/P Problem List: (1) Small bowel obstruction ICD Codes: K56.609 - Unspecified intestinal obstruction, unspecified as to partial versus complete obstruction; J90 - Pleural effusion, not elsewhere classified; R18.8 - Other ascites Status: Acute Plan: Pt is a 51 y/o female with metastatic ovarian cancer on oral chemo with Zejula 200mg po daily and follows with Dr. Garcia. Pt reports that for the last week and a half she has been having issues with nausea/vomiting and constipation. She states that in the last 10 days she has had one BM which was 4 days ago and that was after using 2 enemas. She was also using MOM at home for constipation without relief. She has not been able to tolerate much oral intake and has been receiving IVF from her Oncologist, Dr. Garcia. Pt was in our IR department today getting a therapeutic paracentesis with removal of 1000mL of ascetic fluid. She told the radiologist about her nausea and vomiting and a CT Abd/pelvis was ordered which revealed a distal SBO with transition point in the right lower quadrant and loculated ascites. Pt was sent to the ED for admission and surgical consultation. SBO with transition point in RLQ Nausea/vomiting Constipation - comgmt with Decorating Instructor Oncology/General surgery - NGT placed in the ED - NGT to LIWS - Zofran PRN - Protonix 40mg IV Q12H - KUB (03/30) --> Dilated small bowel loops again noted which can be seen with ileus vs. obstruction. s/p cholecystectomy - Gastrografin SBFT (03/30) --> High-grade small bowel obstruction at the level of the distal ileum. Transition is in the right side of the pelvic cavity. - Pt underwent exploratory laparoscopy (04/01) with Dr. King - Pt underwent lysis of adhesions - NO surgical cure/intervention for pt's SBO - started TPN 04/03/17 - Lovenox - Case d/w Dr. Garcia (04/04/17) - if pt stabilizes with G-tube, will try to discharge - G-tube placed by IR, 04/04 - clamp NGT, will remove today if successful outflow thru G-tube Metastatic Ovarian Cancer, recurrent Recurrent malignant ascites - Pt follows with Dr. Garcia - She was previously treated with Taxol chemotherapy with initial reduction in her CA-125 and improvement in her measurable disease on the PET scan - Pt is currently taking Zejula 200mg po daily - She had paracentesis on the day of admission with removal of 1000mL of ascitic fluid - Dr. Garcia is following - Patient met with hospice (04/02) for informational meeting- patient states she wishes to have consult with [facility] before deciding on Hospice Elevated BP, reportedly secondary to chemo - Pt was recently started on Norvasc 5mg po BID, this will be held while pt is NPO - Vasotec PRN - Some elevation likely related to pain and anxiety - Pain meds PRN and Ativan PRN ordered GERD - PPI Hypothyroidism - Home meds to be resumed once tolerating po intake DVT prophylaxis with Lovenox (2) Elevated BP without diagnosis of hypertension ICD Codes: R03.0 - Elevated blood-pressure reading, without diagnosis of hypertension Status: Chronic Plan: - See above (3) Ovarian cancer ICD Codes: C56.9 - Malignant neoplasm of unspecified ovary Status: Chronic Plan: - See above (4) Ascites ICD Codes: R18.8 - Ascites Status: Chronic Plan: - See above (5) Hypothyroid ICD Codes: E03.9 - Hypothyroidism Status: Chronic Plan: - See above Assessment and Plan Patient examined. Assessment and plan formulated with Shikha Yeboah PA-C. I agree with the above. Pt in good spirits. Pt discussed case with Dr. Garcia this AM. Pt would like to obtain second opinion at [facility]. Case d/w Dr. King (04/02). No surgical option. GI consulted for possible G-tube placement. Will need to start TPN for nutritional support. Pt had informational meeting with Hospice this AM. Pt willing to consider Hospice if NO new therapeutic options from [place]. Problem Qualifiers (1) Ovarian cancer: Qualified Codes: C56.9 - Malignant neoplasm of unspecified ovary (2) Ascites: Qualified Codes: R18.0 - Malignant ascites Miguel Domingo DO Apr 05, 2017 13:12
[2017-04-05 16:00] VITALS: BP 143/90; PULSE 100; RESP 20; TEMP 99.6; O2SAT 96
[2017-04-05 20:00] VITALS: BP 128/78; PULSE 96; RESP 18; TEMP 99.4; O2SAT 96
[2017-04-05] MEDS: ZEJULA PO SCH (20:53)
[2017-04-05] MEDS: FAT EMULSION 20% INJ 250 ML (Daily over 8 hours) IV-CENTRAL SCH (20:53)
[2017-04-05] MEDS: CLINIMIX E 4.25/25 2000 mL- >42 mls/hr IV-CENTRAL SCH ×3 (20:53)
[2017-04-05] MEDS: CITALOPRAM HYDROBROMIDE 20 MG TAB PO SCH (20:53)
[2017-04-05] MEDS: LORazepam 2 MG/ML VIAL IV PUSH PRN (21:08)
[2017-04-06] VITALS: BP 131/75; PULSE 101; RESP 17; TEMP 98.1; O2SAT 97
[2017-04-06] MEDS: PANTOPRAZOLE SODIUM 40 MG VIAL IV PUSH SCH (03:54)
[2017-04-06] MEDS: PCA - TOTAL MG DILAUDID DELIVERED PER SHIFT SCH (03:59)
[2017-04-06 05:49] LABS: AUTOMATED NEUTROPHIL # 6.9 TH/MM3 (1.8-7.7); BASOPHIL # 0.1 TH/MM3 (0-0.2); BASOPHIL % 0.6 % (0.0-2.0); EOSINOPHIL # 0.1 TH/MM3 (0-0.4); EOSINOPHIL % 1.2 % (0.0-4.0); HEMATOCRIT 31.2 % (35.0-46.0); HEMO FLAGS DIFF FINAL; LYMPH % 5.5 % (9.0-44.0); LYMPHOCYTE # 0.5 TH/MM3 (1.0-4.8); MEAN CELL VOLUME 94.9 FL (80.0-100.0); MEAN CORPUSCULAR HEMOGLOBIN 31.3 PG (27.0-34.0); MONO % 11.7 % (0.0-8.0); PLATELET COUNT 114 TH/MM3 (150-450); RED BLOOD COUNT 3.28 MIL/MM3 (4.00-5.30); RED CELL DISTRIBUTION WIDTH 21.3 % (11.6-17.2); WHITE BLOOD COUNT 8.5 TH/MM3 (4.0-11.0)
[2017-04-06] MEDS: NS + KCL 20 MEQ INJ 1,000 ML IV SCH (06:07)
[2017-04-06 06:09] LABS: BICARBONATE 29.1 MEQ/L (21.0-32.0); MAGNESIUM 1.4 MG/DL (1.5-2.5); POTASSIUM 3.3 MEQ/L (3.5-5.1)
[2017-04-06 06:27] LABS: CALCIUM-PROTEIN CORRECTED 8.7 MG/DL (8.5-10.1)
[2017-04-06] MEDS: HYDROmorphone HCL PCA 6 MG/30 ML IV SCH (06:31)
[2017-04-06 08:00] VITALS: BP 129/78; PULSE 96; RESP 16; TEMP 97.8; O2SAT 98
[2017-04-06] MEDS: LOW DOSE INSULIN NOVOLOG SUPPLEMENTAL SCALE SQ SCH ×4 (08:02→21:15)
[2017-04-06] MEDS: SODIUM CHLORIDE 0.9% FLUSH 10 ML FLUSH IV FLUSH SCH ×2 (08:02→20:57)
[2017-04-06] MEDS ORDERED: POTASSIUM CHLOR 20 MEQ PREMIX 100 ML IV ONE (09:45)
[2017-04-06 12:00] VITALS: BP 127/75; PULSE 92; RESP 17; TEMP 97.5; O2SAT 99
[2017-04-06] MEDS: MAGNESIUM SULFATE 1 GM PREMIX 100 ML IV SCH ×2 (12:49→14:05)
--- NOTE | 2017-04-06 13:10 | HHI.PR ---
Subjective Remarks Good drainage from G-tube overnight, roughly 100ml Little drainage from G-tube today. Pt is in good spirits. Pain is controlled. Objective Vitals Vital Signs Date Time Temp Pulse Resp B/P (MAP) Pulse Ox O2 Delivery O2 Flow Rate FiO2 04/06/17 08:00 97.8 96 16 129/78 (95) 98 04/06/17 06:31 18 04/06/17 03:59 18 04/06/17 00:00 98.1 101 17 131/75 (93) 97 04/05/17 21:00 18 04/05/17 20:00 99.4 96 18 128/78 (95) 96 04/05/17 16:00 99.6 100 20 143/90 (107) 96 Result Diagram: 04/06/17 0540 04/06/17 0540 Imaging Last Impressions Gastrostomy Tube Placement 04/04/17 0000 Signed Impressions: Service Date/Time: Tuesday, April 04, 2017 16:14 - CONCLUSION: Uncomplicated gastrostomy tube placement as above. Bentley King MD Abdomen X-Ray 03/30/17 0800 Signed Impressions: Service Date/Time: Thursday, March 30, 2017 09:15 - CONCLUSION: 1. Dilated small bowel loops again noted which can be seen with ileus versus obstruction. 2. Status post cholecystectomy. Mahamed Antunez MD Small Bowel X-Ray 03/30/17 0000 Signed Impressions: Service Date/Time: Thursday, March 30, 2017 14:21 - CONCLUSION: High-grade small bowel obstruction at the level of the distal ileum. Transition is in the right side of the pelvic cavity. Andres Natarajan MD Abdomen Ultrasound 03/28/17 0000 Signed Impressions: Service Date/Time: Tuesday, March 28, 2017 12:21 - CONCLUSION: Small blind ascites with insufficient volume for safe paracentesis. Dilated small bowel loops noted. Austin Mcallister Jr., MD Objective Remarks General: NAD, AAOx3 ENT: MMM Chest: CTA Cardiac: Regular Abd: Minimal BS, soft, mildly distended, G-tube in place. Ext: No edema Procedures 04/01 exploratory lap with lysis of adhesions with Dr. Ward A/P Problem List: (1) Small bowel obstruction ICD Codes: K56.609 - Unspecified intestinal obstruction, unspecified as to partial versus complete obstruction; J90 - Pleural effusion, not elsewhere classified; R18.8 - Other ascites Status: Acute Plan: Pt is a 51 y/o female with metastatic ovarian cancer on oral chemo with Zejula 200mg po daily and follows with Dr. Garcia. Pt reports that for the last week and a half she has been having issues with nausea/vomiting and constipation. She states that in the last 10 days she has had one BM which was 4 days ago and that was after using 2 enemas. She was also using MOM at home for constipation without relief. She has not been able to tolerate much oral intake and has been receiving IVF from her Oncologist, Dr. Garcia. Pt was in our IR department today getting a therapeutic paracentesis with removal of 1000mL of ascetic fluid. She told the radiologist about her nausea and vomiting and a CT Abd/pelvis was ordered which revealed a distal SBO with transition point in the right lower quadrant and loculated ascites. Pt was sent to the ED for admission and surgical consultation. SBO with transition point in RLQ Nausea/vomiting Constipation - comgmt with Scutcher Tender Oncology/General surgery - NGT placed in the ED - NGT to LIWS - Zofran PRN - Protonix 40mg IV Q12H - KUB (03/30) --> Dilated small bowel loops again noted which can be seen with ileus vs. obstruction. s/p cholecystectomy - Gastrografin SBFT (03/30) --> High-grade small bowel obstruction at the level of the distal ileum. Transition is in the right side of the pelvic cavity. - Pt underwent exploratory laparoscopy (04/01) with Dr. King - Pt underwent lysis of adhesions - NO surgical cure/intervention for pt's SBO - started TPN 04/03/17 - Lovenox - Case d/w Dr. Garcia (04/04/17) - if pt stabilizes with G-tube, will try to discharge - G-tube placed by IR, 04/04, NGT removed - transitioning medications back to PO - start Duragesic 25mcg daily - anticipate d/c to home with C in next 1-2 days if arrangements can be made - consult case management for assistance with SNF placement - supportive care - DVT prophylaxis with lovenox Metastatic Ovarian Cancer, recurrent Recurrent malignant ascites - Pt follows with Dr. Garcia - She was previously treated with Taxol chemotherapy with initial reduction in her CA-125 and improvement in her measurable disease on the PET scan - Pt is currently taking Zejula 200mg po daily - She had paracentesis on the day of admission with removal of 1000mL of ascitic fluid - Dr. Garcia is following - Patient met with hospice (04/02) for informational meeting- patient states she wishes to have consult with [facility] before deciding on Hospice Elevated BP, reportedly secondary to chemo - Pt was recently started on Norvasc 5mg po BID, this will be held while pt is NPO - Vasotec PRN - Some elevation likely related to pain and anxiety - Pain meds PRN and Ativan PRN ordered GERD - PPI Hypothyroidism - levothyroxine DVT prophylaxis with Lovenox (2) Elevated BP without diagnosis of hypertension ICD Codes: R03.0 - Elevated blood-pressure reading, without diagnosis of hypertension Status: Chronic Plan: - See above (3) Ovarian cancer ICD Codes: C56.9 - Malignant neoplasm of unspecified ovary Status: Chronic Plan: - See above (4) Ascites ICD Codes: R18.8 - Ascites Status: Chronic Plan: - See above (5) Hypothyroid ICD Codes: E03.9 - Hypothyroidism Status: Chronic Plan: - See above Assessment and Plan Patient examined. Assessment and plan formulated with Shikha Yeboah PA-C. I agree with the above. Pt in good spirits. Pt discussed case with Dr. Garcia this AM. Pt would like to obtain second opinion at [facility]. Case d/w Dr. King (04/02). No surgical option. GI consulted for possible G-tube placement. Will need to start TPN for nutritional support. Pt had informational meeting with Hospice this AM. Pt willing to consider Hospice if NO new therapeutic options from [place]. Problem Qualifiers (1) Ovarian cancer: Qualified Codes: C56.9 - Malignant neoplasm of unspecified ovary (2) Ascites: Qualified Codes: R18.0 - Malignant ascites Miguel Domingo DO Apr 06, 2017 13:10
--- NOTE | 2017-04-06 13:13 | HHI.FF ---
Face to Face Verification Diagnosis: (1) Hypothyroid (2) Ovarian cancer (3) Anxiety Physical Therapy Order: Evaluate and Treat, Improve ambulation, Strength and gait training Home Health Nursing Order: Medical education Signs/symptoms of disease process Medication education-adverse effect Nursing assessment with vital signs Instructions: assist with TPN I have seen patient Connor Henley on 04/06/17. My clinical findings support the need for the requested home health care services because: Ltd mobility - disease progression Deconditioned w/ increased weakness Limited ability to care for self Need for psychosocial assistance I certify that my clinical findings support that this patient is homebound because: Post-op weakness Unsteady gait/balance Unsafe to leave home unassisted Need for psychosocial assistance Jai-[id number]-[id number] bed/chair Miguel Domingo DO Apr 06, 2017 13:12
[2017-04-06] MEDS ORDERED: HYDROmorphone HCL PF 1 MG/ML VIAL IV PUSH PRN (13:15)
[2017-04-06] MEDS ORDERED: oxyCODONE/ACETAMINOPHEN 5 MG/325 MG TAB PO PRN (13:15)
[2017-04-06] MEDS ORDERED: fentaNYL 25 MCG/HR PATCH T-DERMAL SCH (14:00)
[2017-04-06] MEDS: LEVOTHYROXINE SODIUM 75 MCG TAB PO SCH (14:50)
[2017-04-06 16:00] VITALS: BP 131/81; PULSE 101; RESP 16; TEMP 98.6; O2SAT 95
[2017-04-06 20:00] VITALS: BP 132/86; PULSE 110; RESP 18; TEMP 96.4; O2SAT 97
[2017-04-06] MEDS: CLINIMIX E 4.25/25 2000 mL- >42 mls/hr IV-CENTRAL SCH ×3 (20:00)
[2017-04-06] MEDS: FAT EMULSION 20% INJ 250 ML (Daily over 8 hours) IV-CENTRAL SCH (20:56)
[2017-04-06] MEDS: ONDANSETRON HCL 4 MG/2 ML VIAL IV PUSH PRN (20:56)
[2017-04-06] MEDS: ZEJULA PO SCH (20:57)
[2017-04-06] MEDS: PANTOPRAZOLE SOD 40 MG DELAYED RELEASE TAB PO SCH (20:58)
[2017-04-06] MEDS: CITALOPRAM HYDROBROMIDE 20 MG TAB PO SCH (20:58)
[2017-04-06] MEDS: HYDROmorphone HCL PF 1 MG/ML VIAL IV PRN (21:46)
[2017-04-06] MEDS: LORazepam 2 MG/ML VIAL IV PUSH PRN (21:49)
[2017-04-07] VITALS: BP 135/88; PULSE 108; RESP 17; TEMP 97.3; O2SAT 97
[2017-04-07] MEDS: ONDANSETRON HCL 4 MG/2 ML VIAL IV PUSH PRN ×5 (02:26→22:09)
[2017-04-07] MEDS: HYDROmorphone HCL PF 1 MG/ML VIAL IV PRN ×5 (02:30→23:02)
[2017-04-07] MEDS: LORazepam 2 MG/ML VIAL IV PUSH PRN ×4 (02:57→22:36)
[2017-04-07] MEDS: LEVOTHYROXINE SODIUM 75 MCG TAB PO SCH (05:22)
[2017-04-07 06:18] LABS: BICARBONATE 30.6 MEQ/L (21.0-32.0); MAGNESIUM 1.6 MG/DL (1.5-2.5); POTASSIUM 3.4 MEQ/L (3.5-5.1)
[2017-04-07 06:30] LABS: CALCIUM-PROTEIN CORRECTED 8.5 MG/DL (8.5-10.1)
--- NOTE | 2017-04-07 07:59 | HHI.PR ---
Subjective Remarks Patient reports being very painful through the night also had episode of vomiting through the night- G tube flushed patient no longer having vomiting Patient also reports nonproductive cough which started after vomiting episode last night Objective Vitals Vital Signs Date Time Temp Pulse Resp B/P (MAP) Pulse Ox O2 Delivery O2 Flow Rate FiO2 04/07/17 00:00 97.3 108 17 135/88 (104) 97 04/06/17 20:00 96.4 110 18 132/86 (101) 97 04/06/17 16:00 98.6 101 16 131/81 (98) 95 04/06/17 12:00 97.5 92 17 127/75 (92) 99 04/06/17 08:00 97.8 96 16 129/78 (95) 98 Result Diagram: 04/06/17 0540 04/07/17 0530 Other Results Laboratory Tests Test 04/06/17 05:40 04/07/17 05:30 White Blood Count 8.5 TH/MM3 Red Blood Count 3.28 MIL/MM3 Hemoglobin 10.3 GM/DL Hematocrit 31.2 % Mean Corpuscular Volume 94.9 FL Mean Corpuscular Hemoglobin 31.3 PG Mean Corpuscular Hemoglobin Concent 33.0 % Red Cell Distribution Width 21.3 % Platelet Count 114 TH/MM3 Mean Platelet Volume 8.4 FL Neutrophils (%) (Auto) 81.0 % Lymphocytes (%) (Auto) 5.5 % Monocytes (%) (Auto) 11.7 % Eosinophils (%) (Auto) 1.2 % Basophils (%) (Auto) 0.6 % Neutrophils # (Auto) 6.9 TH/MM3 Lymphocytes # (Auto) 0.5 TH/MM3 Monocytes # (Auto) 1.0 TH/MM3 Eosinophils # (Auto) 0.1 TH/MM3 Basophils # (Auto) 0.1 TH/MM3 CBC Comment DIFF FINAL Differential Comment Blood Urea Nitrogen 10 MG/DL 10 MG/DL Creatinine 0.46 MG/DL 0.60 MG/DL Random Glucose 215 MG/DL 211 MG/DL Total Protein 4.1 GM/DL 5.1 GM/DL Calcium Level 7.0 MG/DL 7.4 MG/DL Magnesium Level 1.4 MG/DL 1.6 MG/DL Sodium Level 138 MEQ/L 134 MEQ/L Potassium Level 3.3 MEQ/L 3.4 MEQ/L Chloride Level 104 MEQ/L 97 MEQ/L Carbon Dioxide Level 29.1 MEQ/L 30.6 MEQ/L Anion Gap 5 MEQ/L 6 MEQ/L Estimat Glomerular Filtration Rate 142 ML/MIN 104 ML/MIN Protein Corrected Calcium 8.7 MG/DL 8.5 MG/DL Imaging Last Impressions Gastrostomy Tube Placement 04/04/17 0000 Signed Impressions: Service Date/Time: Tuesday, April 04, 2017 16:14 - CONCLUSION: Uncomplicated gastrostomy tube placement as above. Bentley King MD Abdomen X-Ray 03/30/17 0800 Signed Impressions: Service Date/Time: Thursday, March 30, 2017 09:15 - CONCLUSION: 1. Dilated small bowel loops again noted which can be seen with ileus versus obstruction. 2. Status post cholecystectomy. Mahamed Antunez MD Small Bowel X-Ray 03/30/17 0000 Signed Impressions: Service Date/Time: Thursday, March 30, 2017 14:21 - CONCLUSION: High-grade small bowel obstruction at the level of the distal ileum. Transition is in the right side of the pelvic cavity. Andres Natarajan MD Abdomen Ultrasound 03/28/17 0000 Signed Impressions: Service Date/Time: Tuesday, March 28, 2017 12:21 - CONCLUSION: Small blind ascites with insufficient volume for safe paracentesis. Dilated small bowel loops noted. Austin Mcallister Jr., MD Objective Remarks General: NAD, AAOx3 Chest: CTA Cardiac: Regular Abd: Minimal BS, soft, mildly distended, G-tube in place. Ext: No edema Procedures 04/01 exploratory lap with lysis of adhesions with Dr. Ward A/P Problem List: (1) Small bowel obstruction ICD Codes: K56.609 - Unspecified intestinal obstruction, unspecified as to partial versus complete obstruction; J90 - Pleural effusion, not elsewhere classified; R18.8 - Other ascites Status: Acute Plan: Pt is a 51 y/o female with metastatic ovarian cancer on oral chemo with Zejula 200mg po daily and follows with Dr. Garcia. Pt reports that for the last week and a half she has been having issues with nausea/vomiting and constipation. She states that in the last 10 days she has had one BM which was 4 days ago and that was after using 2 enemas. She was also using MOM at home for constipation without relief. She has not been able to tolerate much oral intake and has been receiving IVF from her Oncologist, Dr. Garcia. Pt was in our IR department today getting a therapeutic paracentesis with removal of 1000mL of ascetic fluid. She told the radiologist about her nausea and vomiting and a CT Abd/pelvis was ordered which revealed a distal SBO with transition point in the right lower quadrant and loculated ascites. Pt was sent to the ED for admission and surgical consultation. SBO with transition point in RLQ Nausea/vomiting Constipation - comgmt with Heavy Equipment Operating Engineer Oncology/General surgery - NGT placed in the ED - NGT to LIWS - Zofran PRN - Protonix 40mg IV Q12H - KUB (03/30) --> Dilated small bowel loops again noted which can be seen with ileus vs. obstruction. s/p cholecystectomy - Gastrografin SBFT (03/30) --> High-grade small bowel obstruction at the level of the distal ileum. Transition is in the right side of the pelvic cavity. - Pt underwent exploratory laparoscopy (04/01) with Dr. King - Pt underwent lysis of adhesions - NO surgical cure/intervention for pt's SBO - started TPN 04/03/17 - Lovenox - Case d/w Dr. Garcia (04/04/17) - if pt stabilizes with G-tube, will try to discharge - G-tube placed by IR, 04/04, NGT removed - transitioning medications back to PO - start Duragesic 25mcg, patient continues to be painful will increase Duragesic patch to 50 mcg - consult case management for assistance with SNF placement - 04/07 patient reports she is not interested in SNF placement she would like to go home with [facility] once she is stable - patient is TPN dependent and will be DC on TPN - potassium replaced - recheck BMP in AM - supportive care - DVT prophylaxis with lovenox Metastatic Ovarian Cancer, recurrent Recurrent malignant ascites - Pt follows with Dr. Garcia - She was previously treated with Taxol chemotherapy with initial reduction in her CA-125 and improvement in her measurable disease on the PET scan - Pt is currently taking Zejula 200mg po daily - She had paracentesis on the day of admission with removal of 1000mL of ascitic fluid - Dr. Garcia is following - Patient met with hospice (04/02) for informational meeting- patient states she wishes to have consult with [facility] before deciding on Hospice Elevated BP, reportedly secondary to chemo - Pt was recently started on Norvasc 5mg po BID, this will be held while pt is NPO - Vasotec PRN - Some elevation likely related to pain and anxiety - Pain meds PRN and Ativan PRN ordered Cough/SOB - duonebs PRN - CXR GERD - PPI Hypothyroidism - levothyroxine DVT prophylaxis with Lovenox (2) Elevated BP without diagnosis of hypertension ICD Codes: R03.0 - Elevated blood-pressure reading, without diagnosis of hypertension Status: Chronic Plan: - See above (3) Ovarian cancer ICD Codes: C56.9 - Malignant neoplasm of unspecified ovary Status: Chronic Plan: - See above (4) Ascites ICD Codes: R18.8 - Ascites Status: Chronic Plan: - See above (5) Hypothyroid ICD Codes: E03.9 - Hypothyroidism Status: Chronic Plan: - See above Assessment and Plan Patient examined. Assessment and plan formulated with Shikha Yeboah PA-C. I agree with the above. sbo. inoperable. on tpn. pain uncontrolled. pt hoping for second opinion. fountain attendant onc sent info to [facility]. If refused by [facility] pt will then consider hospice. currently on tpn Problem Qualifiers (1) Ovarian cancer: Qualified Codes: C56.9 - Malignant neoplasm of unspecified ovary (2) Ascites: Qualified Codes: R18.0 - Malignant ascites Shikha Yeboah Apr 07, 2017 07:59 Jeff Hamilton MD Apr 07, 2017 15:08
[2017-04-07 08:00] VITALS: BP 133/85; PULSE 111; RESP 18; TEMP 96.7; O2SAT 93
[2017-04-07] MEDS ORDERED: POTASSIUM CHLOR 20 MEQ PREMIX 100 ML IV ONE (08:00)
[2017-04-07] MEDS: LOW DOSE INSULIN NOVOLOG SUPPLEMENTAL SCALE SQ SCH ×5 (08:00→21:00)
--- NOTE | 2017-04-07 08:21 | PD.ONC.PN ---
Subjective Subjective Remarks patient resting in bed very painful overnight taking Dilaudid Q 3-4 hours has Fentanyl 25mcg patch has decided against rehab would like to go home when she is ready, she states she has a lot of support at home still waiting to hear from [facility] or [place] about 2nd opinion, will consider Hospice if no other treatment options Objective Data Date Time Temp Pulse Resp B/P (MAP) Pulse Ox O2 Delivery O2 Flow Rate FiO2 04/07/17 00:00 97.3 108 17 135/88 (104) 97 04/06/17 20:00 96.4 110 18 132/86 (101) 97 04/06/17 16:00 98.6 101 16 131/81 (98) 95 04/06/17 12:00 97.5 92 17 127/75 (92) 99 04/07/17 04/07/17 04/07/17 07:00 15:00 23:00 Intake Total 490 ml Output Total 630 ml Balance -140 ml Result Diagram: 04/06/17 0540 04/07/17 0530 Laboratory Results Laboratory Tests Test 04/07/17 05:30 Blood Urea Nitrogen 10 MG/DL Creatinine 0.60 MG/DL Random Glucose 211 MG/DL Total Protein 5.1 GM/DL Calcium Level 7.4 MG/DL Magnesium Level 1.6 MG/DL Sodium Level 134 MEQ/L Potassium Level 3.4 MEQ/L Chloride Level 97 MEQ/L Carbon Dioxide Level 30.6 MEQ/L Anion Gap 6 MEQ/L Estimat Glomerular Filtration Rate 104 ML/MIN Protein Corrected Calcium 8.5 MG/DL Administered Medications Medications (Trade) Dose Ordered Sig/Andrew Route PRN Reason Start Time Stop Time Status Last Admin Dose Admin Citalopram Hydrobromide (CeleXA) 10 mg HS PO 03/26/17 22:00 04/03/17 19:32 Patient Own Medication ZEJULA (NIRAPARIB) 100MG CAPS... HS PO 03/27/17 21:00 04/03/17 19:32 Lorazepam (Ativan Inj) 0.5 mg Q6H PRN IV PUSH anxiety, insomnia 03/28/17 09:45 04/07/17 02:57 Phenol (Chloraseptic [place]) 2 spray Q2H PRN OROPHARYNG throat pain 03/28/17 11:15 03/28/17 19:22 Sodium Chloride (NS Flush) 2 ml BID IV FLUSH 04/01/17 09:00 04/03/17 09:12 Ondansetron HCl (Zofran Inj) 4 mg Q4H PRN IV PUSH NAUSEA OR VOMITING 04/01/17 08:15 04/07/17 05:21 Multivitamins 10 ml/Folic Acid 1 mg/Amino Acids/ Electrolytes/ Dextrose 2,010.2 ml @ 83 mls/hr Q24H IV-CENTRAL 04/03/17 20:00 04/06/17 20:00 Fat Emulsion Intravenous 250 ml @ 31.25 mls/ hr Q24H IV-CENTRAL 04/03/17 20:00 04/06/17 20:56 Insulin Aspart (NovoLOG SUPPLEMENTAL SCALE) 1 ACHS SLIDING SCALE SQ 04/04/17 08:00 04/06/17 21:15 Levothyroxine Sodium (Synthroid) 75 mcg DAILY@0600 PO 04/06/17 14:00 04/06/17 14:50 Fentanyl (Duragesic 25 Mcg Patch.72 Hr) 1 patch Q3D T-DERMAL 04/06/17 14:00 04/06/17 14:50 Hydromorphone HCl (Dilaudid Pf Inj) 1 mg Q4H PRN IV PAIN 5-10 04/06/17 21:45 04/07/17 05:22 Objective Remarks GENERAL: Well-nourished, well-developed patient. SKIN: Warm and dry. HEAD: Normocephalic. EYES: No scleral icterus. No injection or drainage. CARDIOVASCULAR: Regular rate and rhythm RESPIRATORY: Breath sounds equal bilaterally. No accessory muscle use. GASTROINTESTINAL: Abdomen distended and firm, generalized pain, G tube dressing is clean MUSCULOSKELETAL: Adequate muscle tone. NEUROLOGICAL: No obvious focal deficit. Awake, alert, and oriented x3. PSYCHIATRIC: Appropriate mood and affect; insight and judgment normal. Assessment/Plan Problem List: (1) Small bowel obstruction ICD Codes: K56.609 - Unspecified intestinal obstruction, unspecified as to partial versus complete obstruction; J90 - Pleural effusion, not elsewhere classified; R18.8 - Other ascites Status: Acute Plan: small bowel follow through completed showing high grade obstruction no mass. s/p exploratory laparoscopy on 04/01/[address] King lysis of adhesions, no surgical intervention for SBO as carcinomatosis was too extensive. G tube placed, has been flushed overnight (2) Ovarian cancer ICD Codes: C56.9 - Malignant neoplasm of unspecified ovary Status: Chronic Plan: extensive carcinomatosis any additional IV chemotherapy would likely cause her more debilitating side effects then be helpful (please refer to Dr. Garcia note from 04/02/17) patient spoke with Hospice and they have been following her during hospitalization and will consider Hospice once she has had a 2nd opinion at [place] or [facility]. comfort measures and supportive care will place order for therapeutic paracentesis today can have abdominal drain placed for PRN drainage of ascites if she decides on Hospice Problem Qualifiers (1) Ovarian cancer: Qualified Codes: C56.9 - Malignant neoplasm of unspecified ovary Davidson Peoples Apr 07, 2017 08:21
[2017-04-07] MEDS ORDERED: RESP: ALBUTEROL 2.5 MG/IPRATROPIUM 0.5 MG NEB (PRN) NEB (08:30)
[2017-04-07] MEDS: PANTOPRAZOLE SOD 40 MG DELAYED RELEASE TAB PO SCH ×2 (08:37→21:54)
[2017-04-07] MEDS: SODIUM CHLORIDE 0.9% FLUSH 10 ML FLUSH IV FLUSH SCH ×2 (08:38→21:55)
[2017-04-07] MEDS: fentaNYL 50 MCG/HR PATCH T-DERMAL SCH (09:10)
--- NOTE | 2017-04-07 09:31 | RADRPT ---
EXAM DATE/TIME: 04/07/2017 08:36 [facility] COMPARISON: CHEST SINGLE AP, October 22, 2014, 21:09. INDICATIONS : Cough. MEDICAL HISTORY : Hypertension. Carcinoma, Ovarian SURGICAL HISTORY : Abdominal surgery. ENCOUNTER: Initial ACUITY: 1 week PAIN SCORE: 8/10 LOCATION: chest FINDINGS: A single view of the chest demonstrates the lungs to be symmetrically hypoinflated. Bibasilar hazines s may represent some concomitant atelectatic changes although small, posterior layering effusions can also have this appearance. Heart size is normal. Left subclavian [id number] catheter is identifie d with the tip projecting over the central venous system. Osseous structures are intact. CONCLUSION: 1. Hypoinflation with bibasilar hazy densities possibly representing atelectasis or posterior layerin g small effusions. 2. Heart size is normal. Stable position of left subclavian [id number] catheter. Mike Garvey MD on April 07, 2017 at 9:25 Board Certified Radiologist. This report was verified electronically.
[2017-04-07 12:00] VITALS: BP 130/90; PULSE 107; RESP 19; TEMP 96.8; O2SAT 96
[2017-04-07] MEDS ORDERED: HYDROmorphone HCL PF 2 MG/ML VIAL IV PUSH ONE ×2 (12:30→12:45)
[2017-04-07 16:00] VITALS: BP 121/87; PULSE 105; RESP 18; TEMP 97.2; O2SAT 95
--- NOTE | 2017-04-07 16:05 | RADRPT ---
EXAM DATE/TIME: 04/07/2017 08:53 [facility] COMPARISON: No previous studies available for comparison. INDICATIONS : Ascites. MEDICAL HISTORY : Gastroparesis.Ovarian cancer. Chemotherapy. Ascites. Hypothyroidism. Inflammatory bowel disease. SURGICAL HISTORY : Cholecystectomy. Tubal ligation. Hysterectomy. Paracentesis. ENCOUNTER: Subsequent ACUITY: 4-6 days PAIN SCORE: 7/10 LOCATION: Abdomen. AREA EVALUATED: Abdominal quadrants. FINDINGS: Imaging of the abdomen and pelvis was performed to evaluate for ascites for possible paracentesis. Mi nimal ascites seen. CONCLUSION: Inadequate fluid for paracentesis. Mahamed Antunez MD on April 07, 2017 at 16:03 Board Certified Radiologist. This report was verified electronically.
[2017-04-07] MEDS: CITALOPRAM HYDROBROMIDE 20 MG TAB PO SCH (21:54)
[2017-04-07] MEDS: CLINIMIX E 4.25/25 2000 mL- >42 mls/hr IV-CENTRAL SCH ×3 (21:54)
[2017-04-07] MEDS: ZEJULA PO SCH (21:54)
[2017-04-07] MEDS: FAT EMULSION 20% INJ 250 ML (Daily over 8 hours) IV-CENTRAL SCH (21:55)
[2017-04-07] MEDS ORDERED: PROCHLORPERAZINE INJ 10 MG/2 ML VIAL IV PUSH ONE (23:00)
[2017-04-08 00:07] VITALS: BP 127/94; PULSE 107; RESP 18; TEMP 98.6; O2SAT 98
[2017-04-08] MEDS: HYDROmorphone HCL PF 1 MG/ML VIAL IV PRN ×5 (03:04→21:32)
[2017-04-08] MEDS: LEVOTHYROXINE SODIUM 75 MCG TAB PO SCH (06:14)
[2017-04-08] MEDS: ONDANSETRON HCL 4 MG/2 ML VIAL IV PUSH PRN ×4 (06:14→21:30)
[2017-04-08] MEDS: chlorproMAZINE HCL 10 MG TAB PO PRN ×2 (06:14→15:09)
[2017-04-08 08:00] VITALS: BP 137/84; PULSE 114; RESP 18; TEMP 98.3; O2SAT 94
[2017-04-08] MEDS: LOW DOSE INSULIN NOVOLOG SUPPLEMENTAL SCALE SQ SCH ×4 (08:00→21:00)
[2017-04-08] MEDS: SODIUM CHLORIDE 0.9% FLUSH 10 ML FLUSH IV FLUSH SCH ×2 (08:23→21:37)
[2017-04-08] MEDS: PANTOPRAZOLE SOD 40 MG DELAYED RELEASE TAB PO SCH (08:24)
[2017-04-08] MEDS: LORazepam 2 MG/ML VIAL IV PUSH PRN ×3 (08:25→21:31)
[2017-04-08] MEDS: guaiFENesin E.R. 600 MG TAB PO SCH ×2 (09:30→11:21)
--- NOTE | 2017-04-08 10:02 | HHI.PR ---
Subjective Remarks Patient now with productive cough which is causing vomiting reports pain much better today Objective Vitals Vital Signs Date Time Temp Pulse Resp B/P (MAP) Pulse Ox O2 Delivery O2 Flow Rate FiO2 04/08/17 08:00 98.3 114 18 137/84 (101) 94 04/08/17 07:34 18 04/08/17 03:42 16 04/08/17 00:07 98.6 107 18 127/94 (105) 98 04/07/17 16:00 97.2 105 18 121/87 (98) 95 04/07/17 12:00 96.8 107 19 130/90 (103) 96 Result Diagram: 04/06/17 0540 04/07/17 0530 Other Results Laboratory Tests Test 04/06/17 05:40 04/07/17 05:30 White Blood Count 8.5 TH/MM3 Red Blood Count 3.28 MIL/MM3 Hemoglobin 10.3 GM/DL Hematocrit 31.2 % Mean Corpuscular Volume 94.9 FL Mean Corpuscular Hemoglobin 31.3 PG Mean Corpuscular Hemoglobin Concent 33.0 % Red Cell Distribution Width 21.3 % Platelet Count 114 TH/MM3 Mean Platelet Volume 8.4 FL Neutrophils (%) (Auto) 81.0 % Lymphocytes (%) (Auto) 5.5 % Monocytes (%) (Auto) 11.7 % Eosinophils (%) (Auto) 1.2 % Basophils (%) (Auto) 0.6 % Neutrophils # (Auto) 6.9 TH/MM3 Lymphocytes # (Auto) 0.5 TH/MM3 Monocytes # (Auto) 1.0 TH/MM3 Eosinophils # (Auto) 0.1 TH/MM3 Basophils # (Auto) 0.1 TH/MM3 CBC Comment DIFF FINAL Differential Comment Blood Urea Nitrogen 10 MG/DL 10 MG/DL Creatinine 0.46 MG/DL 0.60 MG/DL Random Glucose 215 MG/DL 211 MG/DL Total Protein 4.1 GM/DL 5.1 GM/DL Calcium Level 7.0 MG/DL 7.4 MG/DL Magnesium Level 1.4 MG/DL 1.6 MG/DL Sodium Level 138 MEQ/L 134 MEQ/L Potassium Level 3.3 MEQ/L 3.4 MEQ/L Chloride Level 104 MEQ/L 97 MEQ/L Carbon Dioxide Level 29.1 MEQ/L 30.6 MEQ/L Anion Gap 5 MEQ/L 6 MEQ/L Estimat Glomerular Filtration Rate 142 ML/MIN 104 ML/MIN Protein Corrected Calcium 8.7 MG/DL 8.5 MG/DL Imaging Last Impressions Gastrostomy Tube Placement 04/04/17 0000 Signed Impressions: Service Date/Time: Tuesday, April 04, 2017 16:14 - CONCLUSION: Uncomplicated gastrostomy tube placement as above. Bentley King MD Abdomen X-Ray 03/30/17 0800 Signed Impressions: Service Date/Time: Thursday, March 30, 2017 09:15 - CONCLUSION: 1. Dilated small bowel loops again noted which can be seen with ileus versus obstruction. 2. Status post cholecystectomy. Mahamed Antunez MD Small Bowel X-Ray 03/30/17 0000 Signed Impressions: Service Date/Time: Thursday, March 30, 2017 14:21 - CONCLUSION: High-grade small bowel obstruction at the level of the distal ileum. Transition is in the right side of the pelvic cavity. Andres Natarajan MD Abdomen Ultrasound 03/28/17 0000 Signed Impressions: Service Date/Time: Tuesday, March 28, 2017 12:21 - CONCLUSION: Small blind ascites with insufficient volume for safe paracentesis. Dilated small bowel loops noted. Austin Mcallister Jr., MD Objective Remarks General: NAD, AAOx3 Chest: initially with crackles which cleared after cough Cardiac: Regular Abd: Minimal BS, soft, mildly distended, G-tube in place and draining Ext: No edema Procedures 04/01 exploratory lap with lysis of adhesions with Dr. Ward A/P Problem List: (1) Small bowel obstruction ICD Codes: K56.609 - Unspecified intestinal obstruction, unspecified as to partial versus complete obstruction; J90 - Pleural effusion, not elsewhere classified; R18.8 - Other ascites Status: Acute Plan: Pt is a 51 y/o female with metastatic ovarian cancer on oral chemo with Zejula 200mg po daily and follows with Dr. Garcia. Pt reports that for the last week and a half she has been having issues with nausea/vomiting and constipation. She states that in the last 10 days she has had one BM which was 4 days ago and that was after using 2 enemas. She was also using MOM at home for constipation without relief. She has not been able to tolerate much oral intake and has been receiving IVF from her Oncologist, Dr. Garcia. Pt was in our IR department today getting a therapeutic paracentesis with removal of 1000mL of ascetic fluid. She told the radiologist about her nausea and vomiting and a CT Abd/pelvis was ordered which revealed a distal SBO with transition point in the right lower quadrant and loculated ascites. Pt was sent to the ED for admission and surgical consultation. 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 obstruction. s/p cholecystectomy - Gastrografin SBFT (03/30) --> High-grade small bowel obstruction at the level of the distal ileum. Transition is in the right side of the pelvic cavity. - Pt underwent exploratory laparoscopy (04/01) with Dr. King - Pt underwent lysis of adhesions - NO surgical cure/intervention for pt's SBO - started TPN 04/03/17 - Lovenox - Case d/w Dr. Garcia (04/04/17) - if pt stabilizes with G-tube, will try to discharge - G-tube placed by IR, 04/04, NGT removed - transitioning medications back to PO - start Duragesic 25mcg, patient continues to be painful will increase Duragesic patch to 50 mcg - consult case management for assistance with SNF placement - 04/07 patient reports she is not interested in SNF placement she would like to go home with [facility] once she is stable - patient is TPN dependent and will be DC on TPN - potassium replaced - recheck BMP in AM - supportive care - DVT prophylaxis with lovenox Metastatic Ovarian Cancer, recurrent Recurrent malignant ascites - Pt follows with Dr. Garcia - She was previously treated with Taxol chemotherapy with initial reduction in her CA-125 and improvement in her measurable disease on the PET scan - Pt is currently taking Zejula 200mg po daily - She had paracentesis on the day of admission with removal of 1000mL of ascitic fluid - Dr. Garcia is following - Patient met with hospice (04/02) for informational meeting- patient states she wishes to have consult with [facility] before deciding on Hospice Elevated BP, reportedly secondary to chemo - Pt was recently started on Norvasc 5mg po BID, this will be held while pt is NPO - Vasotec PRN - Some elevation likely related to pain and anxiety - Pain meds PRN and Ativan PRN ordered Cough/SOB - duonebs scheduled and PRN - CXR (04/07) reviewed and reveals: Hypoinflation with bibasilar hazy densities possibly representing atelectasis or posterior layering small effusion. Heart size is normal. Stable position of left subclavian Infuse-a- Port catheter - IS GERD - PPI Hypothyroidism - levothyroxine DVT prophylaxis with Lovenox (2) Elevated BP without diagnosis of hypertension ICD Codes: R03.0 - Elevated blood-pressure reading, without diagnosis of hypertension Status: Chronic Plan: - See above (3) Ovarian cancer ICD Codes: C56.9 - Malignant neoplasm of unspecified ovary Status: Chronic Plan: - See above (4) Ascites ICD Codes: R18.8 - Ascites Status: Chronic Plan: - See above (5) Hypothyroid ICD Codes: E03.9 - Hypothyroidism Status: Chronic Plan: - See above Assessment and Plan Patient examined. Assessment and plan formulated with Shikha Yeboah PA-C. I agree with the above. sbo. inoperable. on tpn. pain uncontrolled. pt hoping for second opinion. customer care voice consultant onc sent info to [facility]. If refused by [facility] pt will then consider hospice. currently on tpn Problem Qualifiers (1) Ovarian cancer: Qualified Codes: C56.9 - Malignant neoplasm of unspecified ovary (2) Ascites: Qualified Codes: R18.0 - Malignant ascites Shikha Yeboah Apr 08, 2017 10:02
[2017-04-08] MEDS: POTASSIUM CHLOR 10 MEQ PREMIX 100 ML IV SCH ×3 (11:22→17:25)
[2017-04-08 11:30] VITALS: O2SAT 97
[2017-04-08] MEDS: RESP: ALBUTEROL 2.5 MG/3 ML NEB (SCH) NEB ×3 (11:36→22:00)
[2017-04-08 12:00] VITALS: BP 135/87; PULSE 116; RESP 18; TEMP 97.1; O2SAT 93
[2017-04-08] MEDS ORDERED: RESP: ACETYLCYSTEINE 20% 30 ML NEB NEB SCH (12:00)
[2017-04-08] MEDS ORDERED: PANTOPRAZOLE SODIUM 40 MG VIAL IV PUSH SCH (15:45)
[2017-04-08] MEDS ORDERED: SIMETHICONE 125 MG CHEWABLE TAB PO PRN (15:45)
[2017-04-08 16:00] VITALS: BP 134/84; PULSE 110; RESP 18; TEMP 96.5; O2SAT 95
[2017-04-08] MEDS: RESP: ACETYLCYSTEINE 20% 4 ML NEB NEB SCH ×2 (16:00→22:00)
--- NOTE | 2017-04-08 16:53 | HHI.PR ---
Subjective . c/o cough, productive, mild SOB with any activity less pain/discomfort at G-tube site some nausea and emesis overnight Objective . afeb, hr 100-120, resp 18-22 awake, a&o, good spirits mildly labored respirations, cough, rales at bases, diffuse rhonchi abd distended, tense, unchanged Assessment/Plan . CPM, supportive care work toward care at home spirometry, albuterol nebs CXR did not show overt fluid overload, but diuretic may help alleviate some symptoms Terri Garcia MD Apr 08, 2017 16:53
[2017-04-08 20:00] VITALS: BP 129/93; PULSE 110; RESP 20; TEMP 99; O2SAT 94
[2017-04-08] MEDS: CITALOPRAM HYDROBROMIDE 20 MG TAB PO SCH (21:29)
[2017-04-08] MEDS: ZEJULA PO SCH (21:29)
[2017-04-08] MEDS: CLINIMIX E 4.25/25 2000 mL- >42 mls/hr IV-CENTRAL SCH ×3 (21:36)
[2017-04-08] MEDS: FAT EMULSION 20% INJ 250 ML (Daily over 8 hours) IV-CENTRAL SCH (21:37)
[2017-04-09] VITALS: BP 138/85; PULSE 117; RESP 20; TEMP 99.4; O2SAT 94
[2017-04-09] MEDS: ONDANSETRON HCL 4 MG/2 ML VIAL IV PUSH PRN ×5 (02:52→21:10)
[2017-04-09] MEDS: HYDROmorphone HCL PF 1 MG/ML VIAL IV PRN ×5 (02:52→21:10)
[2017-04-09] MEDS: RESP: ALBUTEROL 2.5 MG/3 ML NEB (SCH) NEB ×2 (03:56→11:06)
[2017-04-09] MEDS: RESP: ACETYLCYSTEINE 20% 4 ML NEB NEB SCH (03:56)
[2017-04-09] MEDS: LEVOTHYROXINE SODIUM 100 MCG VIAL IV PUSH SCH (05:22)
[2017-04-09] MEDS: LORazepam 2 MG/ML VIAL IV PUSH PRN ×3 (05:22→21:10)
[2017-04-09 08:00] VITALS: BP 136/81; PULSE 117; RESP 16; TEMP 98; O2SAT 94
[2017-04-09] MEDS: LOW DOSE INSULIN NOVOLOG SUPPLEMENTAL SCALE SQ SCH ×4 (08:38→21:19)
[2017-04-09] MEDS: SODIUM CHLORIDE 0.9% FLUSH 10 ML FLUSH IV FLUSH SCH ×2 (08:39→21:19)
[2017-04-09 08:57] VITALS: O2SAT 94
--- NOTE | 2017-04-09 09:09 | PD.ONC.PN ---
Subjective Subjective Remarks patient resting in bed chest congestion with productive cough states pain is better controlled Mrs. Henley tells me that she will make a decision about Hospice in the next couple of days. Her daughter expressed to her yesterday that Mrs. Hneley that she knows she has been fighting for a long time and she does not want her to suffer. Mrs. Henley would like to talk to Palliative Care about her wishes and code status. Objective Data Date Time Temp Pulse Resp B/P (MAP) Pulse Ox O2 Delivery O2 Flow Rate FiO2 04/09/17 08:57 94 Nasal Cannula 2.00 04/09/17 08:00 98.0 117 16 136/81 (99) 94 04/09/17 00:00 99.4 117 20 138/85 (102) 94 04/08/17 20:00 99.0 110 20 129/93 (105) 94 04/08/17 16:00 96.5 110 18 134/84 (101) 95 04/08/17 12:00 97.1 116 18 135/87 (103) 93 04/08/17 11:30 97 21 04/09/17 04/09/17 04/09/17 07:00 15:00 23:00 Intake Total 893 ml Output Total 200 ml Balance 693 ml Result Diagram: 04/06/17 0540 04/07/17 0530 Administered Medications Medications (Trade) Dose Ordered Sig/Andrew Route PRN Reason Start Time Stop Time Status Last Admin Dose Admin Citalopram Hydrobromide (CeleXA) 10 mg HS PO 03/26/17 22:00 04/08/17 21:29 Patient Own Medication ZEJULA (NIRAPARIB) 100MG CAPS... HS PO 03/27/17 21:00 04/08/17 21:29 Lorazepam (Ativan Inj) 0.5 mg Q6H PRN IV PUSH anxiety, insomnia 03/28/17 09:45 04/09/17 05:22 Phenol (Chloraseptic [place]) 2 spray Q2H PRN OROPHARYNG throat pain 03/28/17 11:15 03/28/17 19:22 Sodium Chloride (NS Flush) 2 ml BID IV FLUSH 04/01/17 09:00 04/09/17 08:39 Ondansetron HCl (Zofran Inj) 4 mg Q4H PRN IV PUSH NAUSEA OR VOMITING 04/01/17 08:15 04/09/17 07:01 Multivitamins 10 ml/Folic Acid 1 mg/Amino Acids/ Electrolytes/ Dextrose 2,010.2 ml @ 83 mls/hr Q24H IV-CENTRAL 04/03/17 20:00 04/08/17 21:36 Fat Emulsion Intravenous 250 ml @ 31.25 mls/ hr Q24H IV-CENTRAL 04/03/17 20:00 04/08/17 21:37 Insulin Aspart (NovoLOG SUPPLEMENTAL SCALE) 1 ACHS SLIDING SCALE SQ 04/04/17 08:00 04/09/17 08:38 Oxycodone/ Acetaminophen (Percocet 5-325 Mg) 1 tab Q6H PRN PO pain 1-5 04/06/17 13:15 04/08/17 06:14 Hydromorphone HCl (Dilaudid Pf Inj) 1 mg Q4H PRN IV PAIN 5-10 04/06/17 21:45 04/09/17 07:01 Fentanyl (Duragesic 50 Mcg Patch.72 Hr) 1 patch Q3D T-DERMAL 04/07/17 09:00 04/07/17 09:10 Chlorpromazine (Thorazine) 10 mg Q8HR PRN PO hiccups 04/07/17 22:00 04/08/17 15:09 Albuterol Sulfate (Albuterol Neb) 2.5 mg Q6HR NEB NEB 04/08/17 10:00 04/10/17 10:00 04/08/17 11:36 Pantoprazole Sodium (Protonix Inj) 40 mg Q24H IV PUSH 04/08/17 15:45 04/08/17 17:29 Levothyroxine Sodium (Synthroid Inj) 37.5 mcg DAILY@06 IV PUSH 04/09/17 06:00 04/09/17 05:22 Objective Remarks GENERAL: Well-nourished, well-developed patient. SKIN: Warm and dry. HEAD: Normocephalic. EYES: No scleral icterus. No injection or drainage. CARDIOVASCULAR: Regular rate and rhythm without murmurs. RESPIRATORY: Breath sounds course to bilat upper lobes, decreased to bilat lower lobes GASTROINTESTINAL: Abdomen firm with G tube dressing clean and dry, SS are C/D/I EXTREMITIES: No cyanosis, or edema. MUSCULOSKELETAL: Adequate muscle tone. NEUROLOGICAL: No obvious focal deficit. Awake, alert, and oriented x3. PSYCHIATRIC: Appropriate mood and affect; insight and judgment normal. Assessment/Plan Problem List: (1) Small bowel obstruction ICD Codes: K56.609 - Unspecified intestinal obstruction, unspecified as to partial versus complete obstruction; J90 - Pleural effusion, not elsewhere classified; R18.8 - Other ascites Status: Acute Plan: small bowel follow through completed showing high grade obstruction no mass. s/p exploratory laparoscopy on 04/01/[address] King lysis of adhesions, no surgical intervention for SBO as carcinomatosis was too extensive. G tube placed (2) Ovarian cancer ICD Codes: C56.9 - Malignant neoplasm of unspecified ovary Status: Chronic Plan: extensive carcinomatosis any additional IV chemotherapy would likely cause her more debilitating side effects then be helpful (please refer to Dr. Garcia note from 04/02/17) patient spoke with Hospice and they have been following her during hospitalization and will consider Hospice once she has had a 2nd opinion at [facility] or [facility]. 04/09/17: I am concerned that she will not be well enough to leave the hospital for the second opinion. comfort measures and supportive care will place order for therapeutic paracentesis today can have abdominal drain placed for PRN drainage of ascites if she decides on Hospice 04/09/17: Will consult Palliative Care to help clarify goals and establish code status. I think transitioning to Hospice is going to be stressful for Mrs. Henley and Palliative Care can assist with relieving some of her anxieties. Problem Qualifiers (1) Ovarian cancer: Qualified Codes: C56.9 - Malignant neoplasm of unspecified ovary Davidson Peoples Apr 09, 2017 09:09
--- NOTE | 2017-04-09 10:29 | HHI.PR ---
Subjective Remarks Pt reports that she has been having wheezing mostly at night still She is not bringing much up with her cough Pain is better controlled today Objective Vitals Vital Signs Date Time Temp Pulse Resp B/P (MAP) Pulse Ox O2 Delivery O2 Flow Rate FiO2 04/09/17 08:57 94 Nasal Cannula 2.00 04/09/17 08:00 98.0 117 16 136/81 (99) 94 04/09/17 00:00 99.4 117 20 138/85 (102) 94 04/08/17 20:00 99.0 110 20 129/93 (105) 94 04/08/17 16:00 96.5 110 18 134/84 (101) 95 04/08/17 12:00 97.1 116 18 135/87 (103) 93 04/08/17 11:30 97 21 Result Diagram: 04/06/17 0540 04/07/17 0530 Imaging Last Impressions Gastrostomy Tube Placement 04/04/17 0000 Signed Impressions: Service Date/Time: Tuesday, April 04, 2017 16:14 - CONCLUSION: Uncomplicated gastrostomy tube placement as above. Bentley King MD Abdomen X-Ray 03/30/17 0800 Signed Impressions: Service Date/Time: Thursday, March 30, 2017 09:15 - CONCLUSION: 1. Dilated small bowel loops again noted which can be seen with ileus versus obstruction. 2. Status post cholecystectomy. Mahamed Antunez MD Small Bowel X-Ray 03/30/17 0000 Signed Impressions: Service Date/Time: Thursday, March 30, 2017 14:21 - CONCLUSION: High-grade small bowel obstruction at the level of the distal ileum. Transition is in the right side of the pelvic cavity. Andres Natarajan MD Abdomen Ultrasound 03/28/17 0000 Signed Impressions: Service Date/Time: Tuesday, March 28, 2017 12:21 - CONCLUSION: Small blind ascites with insufficient volume for safe paracentesis. Dilated small bowel loops noted. Austin Mcallister Jr., MD Objective Remarks General: NAD, AAOx3 Chest: initially with crackles which cleared after cough Cardiac: Regular Abd: Minimal BS, soft, mildly distended, G-tube in place and draining Ext: No edema Procedures 04/01 exploratory lap with lysis of adhesions with Dr. Ward A/P Problem List: (1) Small bowel obstruction ICD Codes: K56.609 - Unspecified intestinal obstruction, unspecified as to partial versus complete obstruction; J90 - Pleural effusion, not elsewhere classified; R18.8 - Other ascites Status: Acute Plan: Pt is a 51 y/o female with metastatic ovarian cancer on oral chemo with Zejula 200mg po daily and follows with Dr. Garcia. Pt reports that for the last week and a half she has been having issues with nausea/vomiting and constipation. She states that in the last 10 days she has had one BM which was 4 days ago and that was after using 2 enemas. She was also using MOM at home for constipation without relief. She has not been able to tolerate much oral intake and has been receiving IVF from her Oncologist, Dr. Garcia. Pt was in our IR department today getting a therapeutic paracentesis with removal of 1000mL of ascetic fluid. She told the radiologist about her nausea and vomiting and a CT Abd/pelvis was ordered which revealed a distal SBO with transition point in the right lower quadrant and loculated ascites. Pt was sent to the ED for admission and surgical consultation. SBO with transition point in RLQ Nausea/vomiting Constipation - comgmt with Credit Verification Clerk Oncology/General surgery - NGT placed in the ED - NGT to LIWS - Zofran PRN - Protonix 40mg IV Q12H - KUB (03/30) --> Dilated small bowel loops again noted which can be seen with ileus vs. obstruction. s/p cholecystectomy - Gastrografin SBFT (03/30) --> High-grade small bowel obstruction at the level of the distal ileum. Transition is in the right side of the pelvic cavity. - Pt underwent exploratory laparoscopy (04/01) with Dr. King - Pt underwent lysis of adhesions - NO surgical cure/intervention for pt's SBO - started TPN 04/03/17 - G-tube placed by IR, 04/04, NGT removed - transitioning medications back to PO - Pt was started on Duragesic 25mcg, but continued to be painful so it was increased to 50 mcg on 04/07 - 04/07 patient reports she is not interested in SNF placement she would like to go home with [facility] once she is stable - patient is TPN dependent and will be DC on TPN - recheck BMP in AM - supportive care Metastatic Ovarian Cancer, recurrent Recurrent malignant ascites - Pt follows with Dr. Garcia - She was previously treated with Taxol chemotherapy with initial reduction in her CA-125 and improvement in her measurable disease on the PET scan - Pt is currently taking Zejula 200mg po daily - She had paracentesis on the day of admission with removal of 1000mL of ascitic fluid - Dr. Garcia is following - Patient met with hospice (04/02) for informational meeting- patient states she wishes to have consult with [facility] before deciding on Hospice Elevated BP, reportedly secondary to chemo - Pt was recently started on Norvasc 5mg po BID, this will be held while pt is NPO - Vasotec PRN - Some elevation likely related to pain and anxiety - Pain meds PRN and Ativan PRN ordered Cough/SOB - Duonebs scheduled Q4H and PRN - CXR (04/07) reviewed and reveals: Hypoinflation with bibasilar hazy densities possibly representing atelectasis or posterior layering small effusion. Heart size is normal. Stable position of left subclavian [id number] catheter - IS GERD - PPI Hypothyroidism - levothyroxine DVT prophylaxis with Lovenox (2) Elevated BP without diagnosis of hypertension ICD Codes: R03.0 - Elevated blood-pressure reading, without diagnosis of hypertension Status: Chronic Plan: - See above (3) Ovarian cancer ICD Codes: C56.9 - Malignant neoplasm of unspecified ovary Status: Chronic Plan: - See above (4) Ascites ICD Codes: R18.8 - Ascites Status: Chronic Plan: - See above (5) Hypothyroid ICD Codes: E03.9 - Hypothyroidism Status: Chronic Plan: - See above Assessment and Plan Patient examined. Assessment and plan formulated with Shikha Yeboah PA-C. I agree with the above. sbo. inoperable. on tpn. pain better controlled pt hoping for second opinion. physical education instructor onc sent info to [facility]. If refused by [facility] pt will then consider hospice. long talk with pt today...I think if her daughters are supportive then pt would be more accepting of hospice. I spoke with her mother at bedside who is supportive of hospice as is daughter Jenny. eval g tube to make sure functioning ok..more vomiting. Problem Qualifiers (1) Ovarian cancer: Qualified Codes: C56.9 - Malignant neoplasm of unspecified ovary (2) Ascites: Qualified Codes: R18.0 - Malignant ascites Jill Hill Apr 09, 2017 10:29 Jeff Hamilton MD Apr 09, 2017 11:33
[2017-04-09] MEDS ORDERED: RESP: ACETYLCYSTEINE 20% 4 ML NEB NEB PRN (10:30)
--- NOTE | 2017-04-09 11:59 | PD.CONS ---
Consult Service Palliative Care Consult Requested By Davidson Peoples NP Primary Care Physician Annalisa Jenkins MD Reason for Consultation a. To assist with evaluation and management of symptoms including: Nausea, vomiting, constipation, pain, dyspnea b. To assist medical decision maker(s) with: better understanding of current medical conditions; weighing benefits/burdens of medical treatment options; making medical treatment decisions. HPI History of Present Illness This is a very pleasant 52-year-old female admitted with abdominal pain, nausea, constipation with a known history of stage IIIc recurrent, metastatic ovarian cancer, who has undergone 6 separate rounds of treatment. On 04/01 she underwent laparoscopy by Dr. Joaquin Ward to see if there was any way to surgically bypass, correct or divert her intestine due to bowel obstruction. Finding showed multifocal tumor in both the large and small bowel at multiple locations such that there was no healthy unobstructed bowel that could be used for resection, reanastomosis or bypass. It was also not enough proximal small bowel uninvolved by tumor that would've allowed for an ileostomy. Left upper quadrant was blocked by a tumor along the transverse colon and stomach with the transverse colon adhered to the anterior abdominal wall and the gastrohepatic flexure that precluded the ability to place a G-tube at the time of surgery. She has since undergone placement of a G-tube 04/04 by interventional radiology. Also consideration of placement for a drain for her ascites which reaccumulate some quickly. She last underwent therapeutic paracentesis 03/26 and during that exam notified the radiologist about nausea and vomiting who subsequently ordered a CT of the abdomen and pelvis revealing a distal small bowel obstruction with transition point in the right lower quadrant and loculated ascites. Patient was subsequently admitted Clinical course: * Radiology: Chest x-ray shows hypoinflation with bibasilar hazy densities possibly representing atelectasis or posterior layering small effusions are reviewed heart size is normal with stable position of left subclavian Infuse-a- Port catheter. 03/30 small bowel x-ray shows high-grade small bowel obstruction at the level of the distal ileum. Transition is in the right side of the pelvic cavity. Function/Cognitive Trajectory She has been seen twice in the hospital in 2016, both visits in February. She worked up until April 06, but was only able to tolerate working 2 hours a day. She is now on long-term disability and clearly unable to manage even her ADLs. She is requiring more frequent medical intervention and is likely to continue to decline. . Review of Systems Constitutional: COMPLAINS OF: Fatigue, Weight loss, Change in appetite, Pain, Generalized weakness Respiratory: COMPLAINS OF: Shortness of breath Cardiovascular: COMPLAINS OF: Dyspnea on Exertion Gastrointestinal: COMPLAINS OF: Abdominal pain, Constipation, Nausea, Vomiting , Dyspepsia or heartburn, Excessive gas Psychiatric: COMPLAINS OF: Anxiety, Depression Past Family Social History Coded Allergies: carboplatin (Verified Allergy, Severe, Throat swelling , 03/26/17) sulfamethoxazole (Verified Allergy, Intermediate, SWELLING, 03/26/17) trimethoprim (Verified Allergy, Intermediate, SWELLING, 03/26/17) Past Medical History Recurrent stage III bilateral ovarian cancer diagnosed in 2013 Recurrent ascites requiring paracentesis Gastroparesis Dominique's thyroiditis Hypothyroidism Vitamin D deficiency Anemia Hypertension Anxiety GERD . Past Surgical History Hysterectomy Oophorectomy Omentectomy Tumor debulking 2013 Cholecystectomy Tubal ligation Endometrial ablation Colonoscopy Inguinal hernia repair . Reported Medications Reported Meds & Active Scripts Active Reported [chemoterapy ] PO DAILY Amlodipine (Amlodipine Besylate) 5 Mg Tab 5 Mg PO BID Pantoprazole (Pantoprazole Sodium) 40 Mg Tab 40 Mg PO DAILY Percocet (Oxycodone-Acetaminophen) 5-325 mg Tab 1 Tab PO DIRECTED PRN Clonazepam 1 Mg Tab 1 Mg PO HS Citalopram (Citalopram Hydrobromide) 10 Mg Tab 5 Mg PO DAILY Dicyclomine (Dicyclomine HCl) 10 Mg Cap 10 Mg PO DAILY Levothyroxine (Levothyroxine Sodium) 75 Mcg Tab 75 Mcg PO DAILY . Current Medications Medications (Trade) Dose Ordered Sig/Andrew Route Start Time Stop Time Status Last Admin (Vasotec Inj) 1.25 mg Q6H PRN IV PUSH 03/26/17 17:00 (Ofirmev 1000 Mg/ 100 ml Inj) 1,000 mg Q6H PRN IV 03/26/17 17:30 (CeleXA) 10 mg HS PO 03/26/17 22:00 04/08/17 21:29 (Pill Splitter) 1 ea UNSCH PRN OTHER 03/26/17 22:00 Patient Own Medication ZEJULA (NIRAPARIB) 100MG CAPS... HS PO 03/27/17 21:00 04/08/17 21:29 (Ativan Inj) 0.5 mg Q6H PRN IV PUSH 03/28/17 09:45 04/09/17 05:22 (Chloraseptic Randolph) 2 spray Q2H PRN OROPHARYNG 03/28/17 11:15 03/28/17 19:22 (Cepacol Extra Cindy (Sugar Free)) 1 lozenge Q2HR PRN BUCCAL 03/30/17 15:15 (NS Flush) 2 ml UNSCH PRN IV FLUSH 04/01/17 08:15 (NS Flush) 2 ml BID IV FLUSH 04/01/17 09:00 04/09/17 08:39 (Zofran Inj) 4 mg Q4H PRN IV PUSH 04/01/17 08:15 04/09/17 07:01 Fat Emulsion Intravenous 250 ml @ 31.25 mls/ hr Q24H IV-CENTRAL 04/03/17 20:00 04/08/17 21:37 (D50w (Vial) Inj) 50 ml UNSCH PRN IV PUSH 04/04/17 05:30 (Glucagon Inj) 1 mg UNSCH PRN OTHER 04/04/17 05:30 (NovoLOG SUPPLEMENTAL SCALE) 1 ACHS SLIDING SCALE SQ 04/04/17 08:00 04/09/17 08:38 (Percocet 5-325 Mg) 1 tab Q6H PRN PO 04/06/17 13:15 04/08/17 06:14 (Dilaudid Pf Inj) 1 mg Q4H PRN IV 04/06/17 21:45 04/09/17 07:01 (Duragesic 50 Mcg Patch.72 Hr) 1 patch Q3D T-DERMAL 04/07/17 09:00 04/07/17 09:10 Miscellaneous Information 1 Q3D T-DERMAL 04/10/17 09:00 (Thorazine) 10 mg Q8HR PRN PO 04/07/17 22:00 04/08/17 15:09 (Albuterol Neb) 2.5 mg Q6HR NEB NEB 04/08/17 10:00 04/10/17 10:00 04/09/17 11:06 (Phazyme Chew) 125 mg Q8HR PRN PO 04/08/17 15:45 (Protonix Inj) 40 mg Q24H IV PUSH 04/08/17 15:45 04/08/17 17:29 (Synthroid Inj) 37.5 mcg DAILY@06 IV PUSH 04/09/17 06:00 04/09/17 05:22 Multivitamins 5 ml/Folic Acid 0.5 mg/Amino Acids/ Electrolytes/ Dextrose 1,005.1 ml @ 83 mls/hr Q12H7M IV 04/09/17 20:00 (Mucomyst 20% Neb) 2 ml Q6HR NEB PRN NEB 04/09/17 10:30 UNV (Duoneb Neb) 1 ampule Q4HR NEB NEB 04/09/17 10:30 UNV . Family History Mom is alive and well with a thyroid disorder. Father had pancreatic cancer, at age 64. One sister due to complications of alcoholism. . Substance Use Tobacco: Lifelong nonsmoker Alcohol: Rare alcohol use. Prescription med abuse: No history of prescription drug abuse. Illicits: No use of illicit drugs . Psychosocial History She was born in [place] at [employer] and has lived here all her life. 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 Her mother is still alive and remains atrophic support to her. . Spiritual/Cultural Factors She is a Adventist. . Living Will: Never completed Health Care Surrogate: Never completed Durable Power of [employer]: Never completed Physical Exam Vital Signs Date Time Temp Pulse Resp B/P (MAP) Pulse Ox O2 Delivery O2 Flow Rate FiO2 04/09/17 08:57 94 Nasal Cannula 2.00 04/09/17 08:00 98.0 117 16 136/81 (99) 94 04/09/17 00:00 99.4 117 20 138/85 (102) 94 04/08/17 20:00 99.0 110 20 129/93 (105) 94 04/08/17 16:00 96.5 110 18 134/84 (101) 95 04/08/17 12:00 97.1 116 18 135/87 (103) 93 04/08/17 11:30 97 21 Exam CONSTITUTIONAL/GENERAL: This is an adequately nourished patient, in mild distress. TUBES/LINES/DRAINS: Left forearm PIV, left subclavian port, gastrostomy tube SKIN: No jaundice, rashes, or lesions. Ecchymoses on upper extremities. No wounds seen anteriorly. Skin temperature appropriate. Not diaphoretic. HEAD: Atraumatic. Normocephalic. EYES: Pupils equal and round and reactive. Extraocular motions intact. No scleral icterus. No injection or drainage. Fundi not examined. ENT: Hearing grossly normal. Nose without bleeding or purulent drainage. Throat without visible erythema, exudates, masses, or lesions. NECK: Trachea midline. Supple, nontender. No palpable thyroid enlargement or nodularity. CARDIOVASCULAR: Regular rate and rhythm without murmurs, gallops, or rubs. No JVD. Peripheral pulses symmetric. RESPIRATORY/CHEST: Coarse breath sounds throughout with scattered rhonchi and occasional wheezes. GASTROINTESTINAL: Abdomen tense, distended, tender, NG tube to bedside drainage. Bowel sounds hypoactive. GENITOURINARY: Without palpable bladder distension. MUSCULOSKELETAL: Extremities without clubbing, cyanosis, or edema. No joint tenderness or effusion noted. No calf tenderness. No mottling or clubbing. LYMPHATICS: No palpable cervical or supraclavicular adenopathy. NEUROLOGICAL: Awake and alert. Motor and sensory grossly within normal limits. Follows commands. Cognitively sharp. Moves all extremities. PSYCHIATRIC: Flat affect, depressed, mildly anxious. . Diagnostic Tests Laboratory Laboratory Tests Test 04/07/17 05:30 Blood Urea Nitrogen 10 MG/DL (7-18) Creatinine 0.60 MG/DL (0.50-1.00) Random Glucose 211 MG/DL (74-106) Total Protein 5.1 GM/DL (6.4-8.2) Calcium Level 7.4 MG/DL (8.5-10.1) Magnesium Level 1.6 MG/DL (1.5-2.5) Sodium Level 134 MEQ/L (136-145) Potassium Level 3.4 MEQ/L (3.5-5.1) Chloride Level 97 MEQ/L (98-107) Carbon Dioxide Level 30.6 MEQ/L (21.0-32.0) Anion Gap 6 MEQ/L (5-15) Estimat Glomerular Filtration Rate 104 ML/MIN (>89) Protein Corrected Calcium 8.5 MG/DL (8.5-10.1) . Result Diagram: 04/06/17 0540 04/07/17 0530 Imaging Last Impressions Chest X-Ray 04/07/17 0000 Signed Impressions: Service Date/Time: Friday, April 07, 2017 08:36 - CONCLUSION: 1. Hypoinflation with bibasilar hazy densities possibly representing atelectasis or posterior layering small effusions. 2. Heart size is normal. Stable position of left subclavian Jbdnoo-n-Xupp catheter. Mike Garvey MD Abdomen Ultrasound 04/07/17 0000 Signed Impressions: Service Date/Time: Friday, April 07, 2017 08:53 - CONCLUSION: Inadequate fluid for paracentesis. Mahamed Antunez MD Gastrostomy Tube Placement 04/04/17 0000 Signed Impressions: Service Date/Time: Tuesday, April 04, 2017 16:14 - CONCLUSION: Uncomplicated gastrostomy tube placement as above. Bentley King MD Abdomen X-Ray 03/30/17 0800 Signed Impressions: Service Date/Time: Thursday, March 30, 2017 09:15 - CONCLUSION: 1. Dilated small bowel loops again noted which can be seen with ileus versus obstruction. 2. Status post cholecystectomy. Mahamed Antunez MD Small Bowel X-Ray 03/30/17 0000 Signed Impressions: Service Date/Time: Thursday, March 30, 2017 14:21 - CONCLUSION: High-grade small bowel obstruction at the level of the distal ileum. Transition is in the right side of the pelvic cavity. Andres Natarajan MD . Procedures 03/19: Paracentesis 03/26: Paracentesis 04/04: gastrostomy tube placement. . Patient/Family Conference Present at Family Conference: 12:00-spoke with patient and her mother in their room. Discussed palliative care focusing purpose and items delineated below. Also discussed transitioning to hospice care for comfort. The patient had previously considered being evaluated at [facility] in [place] but at this time is of the opinion that she would not be able to travel that distance to even undergo the consultation and evaluation. She states that her , her mother, and her oldest daughter have all recommended that she consider hospice for comfort as her symptoms are compromising her comfort and quality of life. Her younger daughter is still encouraging aggressive care. Plan for meeting this afternoon with family and hospice to explain options, give medical update and information. 16:00-held conference with patient, mother at bedside and both daughters, Lea and Jenny attending via phone. Reviewed medical data, operative report findings, patient's symptoms and options for treatment. The patient expressed her level of discomfort, inability to manage pain symptoms once pain pump was discontinued and inability to continue tolerating the pain where no curative or other palliative options exist. Plan is to transfer to the hospice care center in the next 24-48 hours for symptom management, medication titration, then if possible transfer patient home with outpatient hospice follow-up. Daughters were in agreement with this plan, as was the patient's mother. The did not attend conference, however per the patient is in agreement with this plan as well. Consents left with the patient for review. Hospice following. . Family Conference Location: Bedside, Telephone Issues Discussed: * Palliative care role, purpose, approach * Additional medical, psychosocial, and spiritual history * Patients general health, functional status, and cognitive changes in the months leading up to the current hospitalization * Patient/family understanding of the current medical problems * Patient/family understanding of prognosis * Patients goals of care as best understood from advance directives and/or conversations and/or values * Current medical treatment options and benefits/burdens of those options * Likely scenarios comparing ongoing aggressive care with a transition to comfort measures only * Questions answered to the best of my ability * Palliative care contact information provided Assessment and Plan Disease Oriented Problem List: (1) Ascites, malignant (2) Small bowel obstruction (3) Ovarian cancer (4) Anxiety (5) Gastritis (6) Gastroparesis (7) Hypothyroid Symptom Scale: (1) Nausea (2) Constipation (3) Pain Pertinent Non-Medical Issues Psychosocial:She was born in [place] at [employer] and has lived here all her life. 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 Her mother is still alive and remains atrophic support to her. . Spiritual: She is a Adventist. . Legal: She is currently able to make her own decisions and is aware that her would be the decision making proxy. She is comfortable with him making her decisions. . Ethical issues impacting care: None noted at this time. . Important Contacts : Chaparro Henley-home , cell- Mother: Alejandra Arias-home , cell- . Prognosis Her prognosis is very poor and she has metastatic ovarian cancer stage IIIB and now has a follow-up obstruction. She was evaluated by surgery and found multifocal tumor in both the large and small bowel multiple locations with no healthy unobstructed bowel available for resection, reanastomosis bypass or ileostomy placement. Additional findings of the left upper quadrant in block a the tumor studding along the transverse colon and stomach with the transverse colon adherent to the anterior abdominal wall and the gastrohepatic flexure precluding the ability to place a gastric tube at the time of surgery. She is status post 6 lines of chemotherapy and an developing malignant ascites. Oncology is recommended hospice consultation and she is considering that. She had previously considered and evaluation at [facility] but now is aware that her performance status is too poor to tolerate the ride to [place] for even a consultation or any recommended treatment. She is aware that she would not survive surgery, although Dr. Ward noted no possible surgical intervention was available. That failing, she is likely to continue to decline , experienced poor quality of life and require recurrent hospitalizations. Code Status: No Code Plan PLAN: Legal decision maker: She is currently capacitated to make decisions on her own, but is aware that her would be the healthcare proxy and is in agreement with that. Goals: Comfort oriented CODE STATUS: DNR SYMPTOMS:Nausea, vomiting, constipation, pain, dyspnea * Nausea/vomiting: The nausea is constant, chronic, has been on Zofran around the clock at home. She remains on Zofran 4 mg IV every 4 hours. She remains very nauseated and vomits frequently, this is exacerbated by uncontrolled pain and gastroesophageal reflux. Protonix has been increased to 40 mg IV twice a day. * Constipation: Last bowel movement was 12/3 after 2 enemas. This is likely multifactorial to include nothing by mouth status, bowel obstruction, narcotic pain medication use. * Pain: She has constant, severe abdominal pain, bandlike with intermittent cramping at a level 9/10. This exacerbates her nausea and her dyspnea. She is receiving fentanyl patch 50 g every 3 days, hydromorphone 1 mg every 4 as needed and Percocet 5/325 mg every 6 hours as needed. She states that her pain was better controlled on the [employer] pump. She is also having pain in her throat, likely secondary to gastric reflux. She is receiving Cepacol lozenges and Chloraseptic spray as needed for throat discomfort. * Dyspnea: Likely multifactorial to include abdominal pressure, ascites, tumor burden, possible aspiration. She does have some hoarseness that exacerbates with cough and is at risk for aspiration of gastric fluid. SUMMARY In summary this is a 52-year-old female with metastatic end-stage ovarian cancer, now with large and small bowel obstruction, malignant ascites after 6 lines of chemotherapy. She has been recommended to hospice several times by oncology and is now considering it due to uncontrolled symptoms of pain , nausea, vomiting, constipation and dyspnea. She would be appropriate for hospice if goals were consistent and is reviewing the consents at this time with plan to possibly admit to hospice care center in 24-48 hours once her family has had time to process her decision. She has elected a DO NOT RESUSCITATE status. Palliative care will continue to follow the patient during hospital course as condition evolves, to assist patient/decision-maker with understanding of their medical conditions, weighing benefits/burdens of treatment options, for clarification of goals of treatment. Additionally will assist with any symptoms of palliative concern. . Time Spent Time Periods: 12:00-1:30 and again 4:00-5:00 >50% Counseling/Coord of Care: Yes Thank you for the opportunity to participate in the care of Ms. Henley. Attestation To help prompt me to consider important information that might be impacting today's encounter and assessment, information from prior notes written by myself or my colleagues may have been "brought forward" into today's note. My signature on this note, however, is an attestation that I personally performed the exam, history, and/or decision-making noted today, and, unless otherwise indicated, the interactions with patient, family, and staff as well as the review of records all occurred today. I also attest that the listed assessment and stated plan reflect my best clinical judgment today based on the combination of historical information, prior notes, and today's exam/ interactions. When time spent is documented, it refers only to time spent today by the signer, or if indicated, combined time spent today by collaborating physician/nurse practitioner. . Karrie Valadez Apr 09, 2017 11:59 am
[2017-04-09 12:00] VITALS: BP 136/83; PULSE 113; RESP 16; TEMP 98.2; O2SAT 96
[2017-04-09] MEDS: SIMETHICONE 125 MG CHEWABLE TAB PO SCH ×3 (12:00→21:10)
[2017-04-09] MEDS ORDERED: REMOVE OLD PATCH T-DERMAL SCH (14:00)
[2017-04-09] MEDS: RESP: ALBUTEROL 2.5 MG/IPRATROPIUM 0.5 MG NEB (SCH) NEB ×2 (15:38→19:02)
[2017-04-09] MEDS ORDERED: SODIUM CHLORIDE FLUSH PRN (15:45)
[2017-04-09] MEDS: PANTOPRAZOLE SODIUM 40 MG VIAL IV PUSH SCH (17:52)
[2017-04-09 20:00] VITALS: BP 139/85; PULSE 111; RESP 17; TEMP 97.3; O2SAT 96
[2017-04-09] MEDS: ZEJULA PO SCH (21:00)
[2017-04-09] MEDS: CITALOPRAM HYDROBROMIDE 20 MG TAB PO SCH (21:10)
[2017-04-09] MEDS: MULTIVITAMIN INJ 5 ML, FOLIC ACID INJ 0.5 MG in AMINO ACID IN D5W W/ELECTROLYT 1,000 ML IV SCH ×3 (21:30)
[2017-04-09] MEDS: FAT EMULSION 20% INJ 250 ML (Daily over 8 hours) IV-CENTRAL SCH (21:30)
[2017-04-10] VITALS: BP 132/78; PULSE 113; RESP 17; TEMP 96.1; O2SAT 96
[2017-04-10] MEDS: RESP: ALBUTEROL 2.5 MG/IPRATROPIUM 0.5 MG NEB (SCH) NEB ×5 (00:28→16:00)
[2017-04-10 00:30] VITALS: O2SAT 96
[2017-04-10] MEDS: HYDROmorphone HCL PF 1 MG/ML VIAL IV PRN ×4 (01:20→17:21)
[2017-04-10] MEDS: ONDANSETRON HCL 4 MG/2 ML VIAL IV PUSH PRN ×4 (01:20→17:20)
[2017-04-10] MEDS: LEVOTHYROXINE SODIUM 100 MCG VIAL IV PUSH SCH (05:30)
[2017-04-10] MEDS: LORazepam 2 MG/ML VIAL IV PUSH PRN ×2 (05:30→16:30)
[2017-04-10] MEDS: PANTOPRAZOLE SODIUM 40 MG VIAL IV PUSH SCH ×2 (05:30→17:20)
[2017-04-10] MEDS: SIMETHICONE 125 MG CHEWABLE TAB PO SCH ×2 (05:30→13:27)
[2017-04-10 07:43] LABS: BICARBONATE 28.7 MEQ/L (21.0-32.0); MAGNESIUM 1.8 MG/DL (1.5-2.5)
[2017-04-10 07:50] LABS: POTASSIUM 4.8 MEQ/L (3.5-5.1)
[2017-04-10 08:00] VITALS: BP 136/76; PULSE 110; RESP 15; TEMP 98.5; O2SAT 94
[2017-04-10] MEDS: LOW DOSE INSULIN NOVOLOG SUPPLEMENTAL SCALE SQ SCH ×3 (08:00→16:22)
[2017-04-10] MEDS: MULTIVITAMIN INJ 5 ML, FOLIC ACID INJ 0.5 MG in AMINO ACID IN D5W W/ELECTROLYT 1,000 ML IV SCH ×3 (08:07)
[2017-04-10] MEDS: SODIUM CHLORIDE 0.9% FLUSH 10 ML FLUSH IV FLUSH SCH (09:00)
[2017-04-10] MEDS ORDERED: REMOVE OLD PATCH T-DERMAL SCH (09:00)
[2017-04-10] MEDS: fentaNYL 50 MCG/HR PATCH T-DERMAL SCH (09:00)
--- NOTE | 2017-04-10 09:25 | HHI.PR ---
Subjective . she reports breathing easier, lungs clearer, chest discomfort from coughing overall quite fatigued, has not been oob recently she is accepting of hospice and told her daughters of this last night remains hopeful, nevertheless, for consult at [facility] but does not think she has the energy to travel Objective . a&o x 3 nad, breathing easier lungs without rhonchi no change in overall status, distended abdomen Assessment/Plan . q&a discussion of hospice, transition to home review of how well she has done fighting her illness until most recently when tumor developed resistance to treatment(s) at present her stomach is settled, adequate pain control cpm Terri Garcia MD Apr 10, 2017 09:25
--- NOTE | 2017-04-10 11:15 | HHI.PR ---
Subjective Remarks Pt overall feels stable today She slept better last night with getting the breathing treatments She has not had much output from the G-tube Pt reports that she has decided to go with Hospice to the care center Objective Vitals Vital Signs Date Time Temp Pulse Resp B/P (MAP) Pulse Ox O2 Delivery O2 Flow Rate FiO2 04/10/17 08:00 98.5 110 15 136/76 (96) 94 04/10/17 00:30 96 04/10/17 00:00 96.1 113 17 132/78 (96) 96 04/09/17 20:00 97.3 111 17 139/85 (103) 96 04/09/17 12:00 98.2 113 16 136/83 (100) 96 04/10/17 04/10/17 04/11/17 15:00 23:00 07:00 Output Total 0 ml Balance 0 ml Gastric Drainage Total 0 ml Result Diagram: 04/06/17 0540 04/10/17 0540 Imaging Last Impressions Gastrostomy Tube Placement 04/04/17 0000 Signed Impressions: Service Date/Time: Tuesday, April 04, 2017 16:14 - CONCLUSION: Uncomplicated gastrostomy tube placement as above. Bentley King MD Abdomen X-Ray 03/30/17 0800 Signed Impressions: Service Date/Time: Thursday, March 30, 2017 09:15 - CONCLUSION: 1. Dilated small bowel loops again noted which can be seen with ileus versus obstruction. 2. Status post cholecystectomy. Mahamed Antunez MD Small Bowel X-Ray 03/30/17 0000 Signed Impressions: Service Date/Time: Thursday, March 30, 2017 14:21 - CONCLUSION: High-grade small bowel obstruction at the level of the distal ileum. Transition is in the right side of the pelvic cavity. Andres Natarajan MD Abdomen Ultrasound 03/28/17 0000 Signed Impressions: Service Date/Time: Tuesday, March 28, 2017 12:21 - CONCLUSION: Small blind ascites with insufficient volume for safe paracentesis. Dilated small bowel loops noted. Austin Mcallister Jr., MD Objective Remarks General: NAD, AAOx3 Chest: initially with crackles which cleared after cough Cardiac: Regular Abd: Minimal BS, soft, mildly distended, G-tube in place and draining Ext: No edema Procedures 04/01 exploratory lap with lysis of adhesions with Dr. Ward A/P Problem List: (1) Small bowel obstruction ICD Codes: K56.609 - Unspecified intestinal obstruction, unspecified as to partial versus complete obstruction; J90 - Pleural effusion, not elsewhere classified; R18.8 - Other ascites Status: Acute Plan: Pt is a 51 y/o female with metastatic ovarian cancer on oral chemo with Zejula 200mg po daily and follows with Dr. Garcia. Pt reports that for the last week and a half she has been having issues with nausea/vomiting and constipation. She states that in the last 10 days she has had one BM which was 4 days ago and that was after using 2 enemas. She was also using MOM at home for constipation without relief. She has not been able to tolerate much oral intake and has been receiving IVF from her Oncologist, Dr. Garcia. Pt was in our IR department today getting a therapeutic paracentesis with removal of 1000mL of ascetic fluid. She told the radiologist about her nausea and vomiting and a CT Abd/pelvis was ordered which revealed a distal SBO with transition point in the right lower quadrant and loculated ascites. Pt was sent to the ED for admission and surgical consultation. SBO with transition point in RLQ Nausea/vomiting Constipation - comgmt with Turning And Beading Machine Operator Oncology/General surgery - NGT placed in the ED - NGT to LIWS - Zofran PRN - Protonix 40mg IV Q12H - KUB (03/30) --> Dilated small bowel loops again noted which can be seen with ileus vs. obstruction. s/p cholecystectomy - Gastrografin SBFT (03/30) --> High-grade small bowel obstruction at the level of the distal ileum. Transition is in the right side of the pelvic cavity. - Pt underwent exploratory laparoscopy (04/01) with Dr. King - Pt underwent lysis of adhesions - NO surgical cure/intervention for pt's SBO - started TPN 04/03/17 - G-tube placed by IR, 04/04, NGT removed - transitioning medications back to PO - Pt was started on Duragesic 25mcg, but continued to be painful so it was increased to 50 mcg on 04/07, pain better controlled - Pt has decided to go with Hospice to the care center. - Will need to clarify with Hospice if the pt will continue TPN there - supportive care Metastatic Ovarian Cancer, recurrent Recurrent malignant ascites - Pt follows with Dr. Garcia - She was previously treated with Taxol chemotherapy with initial reduction in her CA-125 and improvement in her measurable disease on the PET scan - Pt is currently taking Zejula 200mg po daily - She had paracentesis on the day of admission with removal of 1000mL of ascitic fluid - Dr. Garcia is following - Patient has decided upon Hospice and to the care center. Elevated BP, reportedly secondary to chemo - Pt was recently started on Norvasc 5mg po BID, this will be held while pt is NPO - Vasotec PRN - Some elevation likely related to pain and anxiety - Pain meds PRN and Ativan PRN ordered Cough/SOB - Duonebs scheduled Q4H and PRN - CXR (04/07) reviewed and reveals: Hypoinflation with bibasilar hazy densities possibly representing atelectasis or posterior layering small effusion. Heart size is normal. Stable position of left subclavian Cltwss-i-Hrns catheter - IS GERD - PPI Hypothyroidism - levothyroxine (2) Elevated BP without diagnosis of hypertension ICD Codes: R03.0 - Elevated blood-pressure reading, without diagnosis of hypertension Status: Chronic Plan: - See above (3) Ovarian cancer ICD Codes: C56.9 - Malignant neoplasm of unspecified ovary Status: Chronic Plan: - See above (4) Ascites ICD Codes: R18.8 - Ascites Status: Chronic Plan: - See above (5) Hypothyroid ICD Codes: E03.9 - Hypothyroidism Status: Chronic Plan: - See above Assessment and Plan Patient examined. Assessment and plan formulated with Shikha Yeboah PA-C. I agree with the above. metastatic ovarian ca bowel obstruction inoperable pt choosing hospice she can be discharged today once weaned off tpn and bed available at care center. Problem Qualifiers (1) Ovarian cancer: Qualified Codes: C56.9 - Malignant neoplasm of unspecified ovary (2) Ascites: Qualified Codes: R18.0 - Malignant ascites Jill Hill Apr 10, 2017 11:15 Jeff Hamilton MD Apr 10, 2017 13:29
[2017-04-10 12:00] VITALS: BP 130/81; PULSE 109; RESP 17; TEMP 98.5; O2SAT 96
[2017-04-10 16:00] VITALS: BP 127/78; PULSE 105; RESP 17; TEMP 98.7; O2SAT 95
--- NOTE | 2017-04-13 13:05 | HHI.DS ---
Discharge Summary Admission Date Mar 26, 2017 at 16:35 Discharge Date: Apr 10, 2017 Admitting Diagnosis small bowel obstruction, stage III ovarian cancer (1) Small bowel obstruction Diagnosis: Principal ICD Codes: K56.609 - Unspecified intestinal obstruction, unspecified as to partial versus complete obstruction; J90 - Pleural effusion, not elsewhere classified; R18.8 - Other ascites Status: Acute (2) Elevated BP without diagnosis of hypertension Diagnosis: Secondary ICD Codes: R03.0 - Elevated blood-pressure reading, without diagnosis of hypertension Status: Chronic (3) Ovarian cancer Diagnosis: Secondary ICD Codes: C56.9 - Malignant neoplasm of unspecified ovary Status: Chronic (4) Ascites Diagnosis: Secondary ICD Codes: R18.8 - Ascites Status: Chronic (5) Hypothyroid Diagnosis: Secondary ICD Codes: E03.9 - Hypothyroidism Status: Chronic Consultants Dr. Terri Garcia - LANGUAGE INTERPRETER Oncology/Surgery Dr. Juwan Asencio/Dr. Joaquin Dotson - General Surgery Procedures 04/01 exploratory lap with lysis of adhesions with Dr. Ward Brief History Ms. Henley is a pleasant 51 y/o with metastatic ovarian cancer on oral chemo with Zejula 200mg po daily and follows with Dr. Garcia. Pt reports that for the last week and a half she has been having issues with nausea/vomiting and constipation. She states that in the last 10 days she has had one BM which was 4 days ago and that was after using 2 enemas. She was also using MOM at home for constipation without relief. She has not been able to tolerate much oral intake and has been receiving IVF from her Oncologist, Dr. Garcia. Pt was in our IR department today getting a therapeutic paracentesis with removal of 1000mL of ascetic fluid. She told the radiologist about her nausea and vomiting and a CT Abd/pelvis was ordered which revealed a distal SBO with transition point in the right lower quadrant and loculated ascites. Pt was sent to the ED for admission and surgical consultation. Pt reports that she has not had much of any flatus for the last 3-4 days. She has had vomiting today and has not been eating or drinking much. She has been able to keep her medications down as far as she knows. Pt does have some upper abdominal pain which is a chronic issue. Denies any hematemesis, coffee-ground emesis, chest pain, SOB, palpitations. CBC/BMP: 04/10/17 0540 Imaging Last Impressions Chest X-Ray 04/07/17 0000 Signed Impressions: Service Date/Time: Friday, April 07, 2017 08:36 - CONCLUSION: 1. Hypoinflation with bibasilar hazy densities possibly representing atelectasis or posterior layering small effusions. 2. Heart size is normal. Stable position of left subclavian Wltmdh-y-Ajzt catheter. Mike Garvey MD Abdomen Ultrasound 04/07/17 0000 Signed Impressions: Service Date/Time: Friday, April 07, 2017 08:53 - CONCLUSION: Inadequate fluid for paracentesis. Mahamed Antunez MD Gastrostomy Tube Placement 04/04/17 0000 Signed Impressions: Service Date/Time: Tuesday, April 04, 2017 16:14 - CONCLUSION: Uncomplicated gastrostomy tube placement as above. Bentley King MD Abdomen X-Ray 03/30/17 0800 Signed Impressions: Service Date/Time: Thursday, March 30, 2017 09:15 - CONCLUSION: 1. Dilated small bowel loops again noted which can be seen with ileus versus obstruction. 2. Status post cholecystectomy. Mahamed Antunez MD Small Bowel X-Ray 03/30/17 0000 Signed Impressions: Service Date/Time: Thursday, March 30, 2017 14:21 - CONCLUSION: High-grade small bowel obstruction at the level of the distal ileum. Transition is in the right side of the pelvic cavity. Andres Natarajan MD PE at Discharge General: NAD, AAOx3 Chest: initially with crackles which cleared after cough Cardiac: Regular Abd: Minimal BS, soft, mildly distended, G-tube in place and draining Ext: No edema Hospital Course SBO with transition point in RLQ Nausea/vomiting Constipation Pt is a 51 y/o female with metastatic ovarian cancer on oral chemo with Zejula 200mg po daily and follows with Dr. Garcia. Pt reports that for the last week and a half she has been having issues with nausea/vomiting and constipation. She states that in the last 10 days she has had one BM which was 4 days ago and that was after using 2 enemas. She was also using MOM at home for constipation without relief. She has not been able to tolerate much oral intake and has been receiving IVF from her Oncologist, Dr. Garcia. Pt was in our IR department today getting a therapeutic paracentesis with removal of 1000mL of ascetic fluid. She told the radiologist about her nausea and vomiting and a CT Abd/ pelvis was ordered which revealed a distal SBO with transition point in the right lower quadrant and loculated ascites. Pt was sent to the ED for admission and surgical consultation. Product Analyst Oncology/General surgery were consulted. NGT was placed in the ED and put to LIWS. KUB (03/30) --> Dilated small bowel loops again noted which can be seen with ileus vs. obstruction. s/p cholecystectomy. Gastrografin SBFT (03/30) --> High-grade small bowel obstruction at the level of the distal ileum. Transition is in the right side of the pelvic cavity. Pt underwent exploratory laparoscopy (04/01) with Dr. King with some lysis of adhesions but NO surgical cure/intervention for pt's SBO. Pt was started on TPN 04/03/17. G-tube placed by IR, 04/04, NGT removed. Pain control was difficult during admission. Pt was started on Duragesic 25mcg, but continued to be painful so it was increased to 50 mcg on 04/07 with pain better controlled. Pt has decided to go with Hospice to the care center. TPN was weaned off prior to discharge Metastatic Ovarian Cancer, recurrent Recurrent malignant ascites Pt follows with Dr. Garcia. She was previously treated with Taxol chemotherapy with initial reduction in her CA-125 and improvement in her measurable disease on the PET scan. Prior to admission she was taking Zejula 200mg po daily. She had paracentesis on the day of admission with removal of 1000mL of ascitic fluid. Dr. Garcia followed during this admission as well. Patient has decided upon Hospice and to the care center. Elevated BP, reportedly secondary to chemo Pt was recently started on Norvasc 5mg po BID, this was held while pt was NPO. Some elevation likely related to pain and anxiety. Pain meds and Ativan were given PRN. Cough/SOB During admission pt developed some cough/congestion/SOB. She was given Duonebs scheduled Q4H and PRN. CXR (04/07) reviewed and reveals: Hypoinflation with bibasilar hazy densities possibly representing atelectasis or posterior layering small effusion. Heart size is normal. Stable position of left subclavian Jigyig-n-Dcbj catheter. This improved slightly prior to discharge. Pt Condition on Discharge: Deteriorating Discharge Disposition: Hospice/Med Facility Discharge Instructions DIET: Follow Instructions for: Full Liquid Diet Additional Diet Instructions: liquid diet as tolerated for comfort Activities you can perform: Regular-No Restrictions Jill Hill Apr 13, 2017 13:05
--- NOTE | 2017-04-24 07:23 | MP ---
cc: JOAQUIN WARD DATE OF SURGERY 04/01/2017 PREOPERATIVE DIAGNOSIS History of ovarian CA with bowel obstruction. POSTOPERATIVE DIAGNOSIS History of ovarian CA with bowel obstruction. PROCEDURE Diagnostic laparoscopy with lysis of adhesions. SURGEON Joaquin Ward MD ANESTHESIA General endotracheal anesthesia ESTIMATED BLOOD LOSS Scant FINDINGS The patient had a large amount of ascites with carcinomatosis with bowel obstruction secondary to tumor. There was studding of tumor along the bowel. There was tumor that was causing obstruction. There was no small bowel distally in the bypass as it involved the terminal ileum. The transverse colon was also adhered to the abdominal wall from tumor. There was no area that could be bypassed or resected. SPECIMENS None COMPLICATIONS None OPERATION The patient was brought to the operating room, placed on operating table in the supine position. Bilateral sequential inflation devices placed on the lower extremities. General anesthesia was instituted. The abdomen was prepped and draped sterilely. The incision in the left upper quadrant was made. On entering the abdominal cavity, there was a large amount of the ascites. A suction catheter was placed through the 5 mm port and a lot of peritoneal fluid was aspirated. Two additional 5-mm ports were placed following this. The abdominal cavity was inspected with findings as above. There was no resection to help the patient and it involved the bowel extended to proximally to perform ileostomy. As a result, the operation was terminated after lysing the adhesions in the lower abdomen. CO2 was released. All ports removed. All skin incisions closed with 4-0 Monocryl. The abdominal wall was cleaned and a sterile dressing placed. The patient was awakened and taken to the Recovery Room. MD LEANNE Mcelroy/OMA /5:20 PM /6:55 AM
== END 2017-04-10 20:12 | disposition hospice, inpatient (51) | DRG 357 ==
LOC: NEDAMB 15:29 → NEDA 16:35 → N07A 19:53
PROVIDERS: ADMIT Hospitalist; ATTEND Hospitalist
PROC: 0W9G3ZZ Drainage of Peritoneal Cavity, Percutaneous Approach (ICD-10-PCS; 2017-03-26)
PROC: 0WJG4ZZ Inspection of Peritoneal Cavity, Percutaneous Endoscopic Approach (ICD-10-PCS; 2017-04-01)
PROC: 3E0436Z Introduction of Nutritional Substance into Central Vein, Percutaneous Approach (ICD-10-PCS; 2017-04-03)
PROC: 0DH63UZ Insertion of Feeding Device into Stomach, Percutaneous Approach (ICD-10-PCS; principal; 2017-04-04)
DX: K56.609 Unspecified intestinal obstruction, unspecified as to partial versus complete obstruction (principal); J90 Pleural effusion, not elsewhere classified; R18.0 Malignant ascites; C80.0 Disseminated malignant neoplasm, unspecified; K31.84 Gastroparesis; C56.9 Malignant neoplasm of unspecified ovary; E03.9 Hypothyroidism, unspecified; D64.9 Anemia, unspecified; K21.9 Gastro-esophageal reflux disease without esophagitis; F43.21 Adjustment disorder with depressed mood; Z79.899 Other long term (current) drug therapy; Z66 Do not resuscitate; Z51.5 Encounter for palliative care; R06.02 Shortness of breath; R05 Cough; F41.9 Anxiety disorder, unspecified; I10 Essential (primary) hypertension
CPT/HCPCS: 36591; 49440; 71010; 74000; 74020; 74250; 76705; 76937; 80048; 82948; 83735; 84155; 85025; 85610; 93005; 94150; 94640; 94664; 96365; 96366; 96375; 99152; 99153; 99285; C9113; J0330; J0690; J0780; J1100; J1170; J1626; J1642; J1650; J1815; J2060; J2250; J2270; J2405; J2710; J3010; J3475; J3480; J7030; J7050; J7613; Q9963; Q9967